=== PATIENT | female | born 1950 | race Caucasian/White ===

== ENCOUNTER 2017-08-01 13:46 | Inpatient (IN) ==
[2017-08-01] MEDS ORDERED: IOPAMIDOL 100 ML BOTTLE IV ONE (13:47)
[2017-08-01] MEDS ORDERED: HYDROmorphone 2 MG/ML SYRINGE IV PRN (14:14)
[2017-08-01] MEDS ORDERED: ONDANSETRON 4 MG/2 ML VIAL IV ONE (14:24)
--- NOTE | 2017-08-01 14:27 | Emergency Department Note ---
SOB HPI - General Chief Complaint: Shortness of Breath/Dyspnea Stated Complaint: Shortness of breath Time Seen by Provider: 08/01/17 13:52 Source: patient, EMS Mode of arrival: EMS Limitations: no limitations - History of Present Illness 66 year old female presents with increased shortness of breath and increased pain under the right ribs. She is brought in by EMS. She has been here 3 times in 3 days. She had a fall 2 days ago. She has COPD and has had increased SOB and more hypoxia. She is on 3 liters at home and was 85% on 3 liters. Pain is not controlled at home. She cannot sleep because of the pain. She denies fever or chills. No nausea or vomiting. She states she has been taking her tylenol #3 at home and they help for a few hours. - Related Data Home Medications Medication Instructions Recorded Confirmed Furosemide [Lasix] 1 tab PO DAILY 06/06/15 07/30/17 Ipratropium/Albuterol [Duoneb] 3 ml NEB Q6H 06/06/15 07/30/17 PARoxetine HCL [Paxil] 40 mg PO DAILY 06/06/15 07/30/17 Pantoprazole [Protonix] 40 mg PO QAMAC 06/06/15 07/30/17 traZODone HCL [Desyrel] 50 mg PO HS 06/06/15 07/30/17 Mometasone/Formoterol [Dulera 200 2 puff IH BID 06/07/15 07/30/17 Mcg/5 Mcg Inhaler] albuterol sulfate HFA 90 1 puff INHALATION ONCE PRN 08/04/15 07/30/17 mcg/actuation aerosol inhaler cyanocobalamin (vit B-12) 1,000 1,000 mcg PO QDAY 07/03/16 07/30/17 mcg tablet iron bis glycinate ju 28 mg 1 cap PO .QD 07/03/16 07/30/17 iron-vit C 60 mg-FA 400 mcg-B12 8mcg cap loratadine 10 mg tablet 10 mg PO QDAY 07/03/16 07/30/17 clonazepam 0.5 mg tablet 0.5 mg PO QDAY tab 07/08/17 07/30/17 diphenhydramine 25 1 tab PO QHS 07/08/17 07/30/17 mg-acetaminophen 500 mg tablet insulin glargine 300 unit/mL (1.5 15 unit SUB-Q QDAY ml 07/08/17 07/30/17 mL) subcutaneous pen docusate sodium 100 mg capsule 100 mg PO BID 07/15/17 07/30/17 traMADol [Ultram] 50 mg PO DAILY 07/30/17 07/30/17 Previous Rx's Medication Instructions Recorded amlodipine 5 mg tablet 5 mg PO QDAY #30 tab 10/21/16 Clindamycin HCl [Cleocin] 300 mg PO QID #40 capsule 07/30/17 Acetaminophen W/Codeine #3 1 tab PO Q4-6HP PRN #15 tablet 07/31/17 [Tylenol #3] Methocarbamol [Robaxin] 750 mg PO TIDP PRN #20 tablet 07/31/17 Allergies Allergy/AdvReac Type Severity Reaction Status Date / Time hydrocodone Allergy Severe Swelling Verified 08/01/17 13:55 Amoxicillin AdvReac Mild Gastrointestinal Verified 08/01/17 13:55 Upset meperidine [From Demerol] AdvReac Mild Vomiting Verified 08/01/17 13:55 doxycycline AdvReac bloating Verified 08/01/17 13:55 Review of Systems All systems ED: reviewed and negative except as stated. 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 Absent: conjunctival injection - Neck Neck exam: Present: normal inspection, full ROM. Absent: tenderness, lymphadenopathy - Chest Chest inspection: Present: symmetric chest wall rise, tenderness (right anterior ribs), other (tachypnic) - Respiratory Respiratory exam: Present: other (decreased in all wu) - Cardiovascular Cardiovascular exam: Present: tachycardia, normal heart sounds - Abdominal Exam Abdominal exam: Present: soft, normal bowel sounds. Absent: tenderness - Extremities Exam Extremities exam: Present: normal inspection, full ROM - Neurological Exam Neurological exam: Present: alert, oriented X3 - Psychiatric Psychiatric exam: Present: normal affect, normal mood - Skin Skin exam: Present: warm, dry, intact Course Course Narrative: She felt better laying flat on her back.. She will be admitted with Dr. Peña Vital Signs Temperature 98.5 F 08/01/17 13:47 Pulse Rate 96 H 08/01/17 13:47 Respiratory Rate 30 H 08/01/17 13:47 Blood Pressure 154/100 08/01/17 13:47 Pulse Oximetry (%) 88 L 08/01/17 13:47 Temperature 98.5 F 08/01/17 13:47 Pulse Rate 80 08/01/17 17:04 Respiratory Rate 17 08/01/17 17:04 Blood Pressure 140/61 08/01/17 17:04 Pulse Oximetry (%) 95 08/01/17 17:04 Shortness of Breath/Dyspnea - Lab Data Lab results reviewed: Yes I reviewed the patient's lab results. Result diagrams: 08/01/17 14:28 08/01/17 14:28 Lab Results 08/01/17 08/01/17 08/01/17 Range/Units 14:28 14:28 14:28 WBC 9.2 (4.5-11.0) K/mcL RBC 3.69 L (4.00-5.20) M/mcL Hgb 11.1 L (12.0-15.0) g/dL Hct 34.6 L (36.0-48.0) % POC Hct 37.0 (36.0-48.0) % MCV 93.8 (80.0-100.0) fL MCH 30.0 (26.0-34.0) pg MCHC 32.0 (31.0-36.0) g/dL RDW 14.1 (11.5-14.5) % Plt Count 190 (140-440) K/mcL MPV 10.7 H (7.4-10.4) fL Total Counted 100 Seg Neutrophils % 81 H (38-78) % Band Neutrophils % Not Reportable Lymphocytes % 7 L (15-49) % Monocytes % (Manual) 9 (1-12) % Eosinophils % (Manual) 3 (0-7) % Platelet Estimate Normal (NORMAL) RBC Morphology Normal (NORMAL) VBG Lactic Acid 0.9 (0.5-2.2) mmol/L POC Sodium 140 (133-145) mmol/L Sodium 143 (133-145) mmol/L POC Potassium 4.6 (3.3-5.1) mmol/L Potassium 4.8 (3.3-5.1) mmol/L POC Chloride 95 L (96-108) mmol/L Chloride 97 (96-108) mmol/L Carbon Dioxide 38 H (22-30) mmol/L POC Total CO2 41 H* (22-30) mmol/L Anion Gap 8.0 (8-16) POC BUN 24 H (8-23) mg/dl BUN 22 (8-23) mg/dl Creatinine 1.1 (0.6-1.1) mg/dl POC Creatinine 1.2 H (0.6-1.1) mg/dl GFR Calculation 52 Glucose 187 H (70-105) mg/dL POC Glucose 185 H (70-105) mg/dL Calcium 9.0 (8.6-10.4) mg/dl POC WB Ioniz Calcium 1.13 L (1.16-1.32) mmol/L Total Bilirubin 0.2 (0.0-1.0) mg/dL AST 15 (0-37) U/l ALT 15 (0-40) U/l Alkaline Phosphatase 134 H (39-117) U/L NT-Pro-B Natriuret Pep (0-125) pg/ml Total Protein 7.4 (5.9-8.4) gm/dL Albumin 4.0 (3.2-5.2) gm/dL Globulin 3.4 (2.2-3.7) gm/dL Albumin/Globulin Ratio 1.2 (1.0-2.3) 08/01/17 Range/Units 14:28 WBC (4.5-11.0) K/mcL RBC (4.00-5.20) M/mcL Hgb (12.0-15.0) g/dL Hct (36.0-48.0) % POC Hct (36.0-48.0) % MCV (80.0-100.0) fL MCH (26.0-34.0) pg MCHC (31.0-36.0) g/dL RDW (11.5-14.5) % Plt Count (140-440) K/mcL MPV (7.4-10.4) fL Total Counted Seg Neutrophils % (38-78) % Band Neutrophils % Lymphocytes % (15-49) % Monocytes % (Manual) (1-12) % Eosinophils % (Manual) (0-7) % Platelet Estimate (NORMAL) RBC Morphology (NORMAL) VBG Lactic Acid (0.5-2.2) mmol/L POC Sodium (133-145) mmol/L Sodium (133-145) mmol/L POC Potassium (3.3-5.1) mmol/L Potassium (3.3-5.1) mmol/L POC Chloride (96-108) mmol/L Chloride (96-108) mmol/L Carbon Dioxide (22-30) mmol/L POC Total CO2 (22-30) mmol/L Anion Gap (8-16) POC BUN (8-23) mg/dl BUN (8-23) mg/dl Creatinine (0.6-1.1) mg/dl POC Creatinine (0.6-1.1) mg/dl GFR Calculation Glucose (70-105) mg/dL POC Glucose (70-105) mg/dL Calcium (8.6-10.4) mg/dl POC WB Ioniz Calcium (1.16-1.32) mmol/L Total Bilirubin (0.0-1.0) mg/dL AST (0-37) U/l ALT (0-40) U/l Alkaline Phosphatase (39-117) U/L NT-Pro-B Natriuret Pep 250.9 H (0-125) pg/ml Total Protein (5.9-8.4) gm/dL Albumin (3.2-5.2) gm/dL Globulin (2.2-3.7) gm/dL Albumin/Globulin Ratio (1.0-2.3) - Radiology Data Radiology results reviewed: Yes I reviewed the patient's radiology results. 1. No evidence of pulmonary embolus 2. Moderate centrilobular emphysema with segmental and subsegmental bronchiectasis in both lower lobes and cicitration atelectasis in the lingula - all stable. 3. Patchy superimposed infiltrate throughout the right lower lobe - suspicious for early pneumonia 4. 21 mm low-attenuation lesion in the pancreatic tail not seen on remote CT from 2013. Suggest abdomen CT - pancreatic protocol and correlation with CA 19-9 - a serologic marker for pancreatic cancer Disposition Pt seen by COMMUNITY OUTREACH COORDINATOR/PA only: No Clinical Impression: Acute exacerbation of chronic obstructive airways disease, Community acquired pneumonia Disposition: Xfer As Inpt ([facility]) Condition: Fair Referrals: Yola Paul MD [Primary Care Provider] -
[2017-08-01 14:57] LABS: Mean Cell Volume 93.8 fL (80.0-100.0); Platelet Count 190 K/mcL (140-440); RBC 3.69 M/mcL (4.00-5.20); Red Cell Distribution Width 14.1 % (11.5-14.5)
[2017-08-01 15:17] LABS: Eosinophils % (Manual) 3 % (0-7); Lymphocytes % 7 % (15-49); Monocytes % (Manual) 9 % (1-12); Platelet Estimate NORMAL (NORMAL); RBC Morphology NORMAL (NORMAL); Segmented Neutrophils % 81 % (38-78)
[2017-08-01 15:19] LABS: ALT/SGPT 15 U/l (0-40); Albumin/Globulin Ratio 1.2 (1.0-2.3); Alkaline Phosphatase 134 U/L (39-117); Blood Urea Nitrogen 22 mg/dl (8-23)
--- NOTE | 2017-08-01 16:53 | Cat Scan Report ---
CLINICAL INFORMATION: Shortness of breath. COPD. Also fall three days prior COMPARISON: Chest CT without contrast 06/17/2013 TECHNIQUE: Axial images obtained through the chest. intravenous contrast administration was administered, and scanning was performed during pulmonary arterial phase. Sagittally and coronally reformatted images were obtained. MIP reformatted images. FINDINGS: Mediastinal windows show the pulmonary arteries are well opacified without evidence of emboli. Thoracic aorta is also normal in contour and caliber. There is no adenopathy in the mediastinal, hilar or axillary regions. Esophagus is grossly normal. Thyroid is normal. The heart is normal in size: There is lipomatous infiltration of the interatrial septum which is unchanged. Pulmonary parenchymal windows show moderate centrilobular emphysema changes featuring chronic bronchitis, elevated lung volumes and scattered bullae in the upper lobes. This shows slight progression. There is also tubular bronchiectasis in the medial posterior and lateral basilar segments of both lower lobes - more prominent on the right. Cicitration atelectasis of the lingula seen - as before. Mild wispy fibrotic change in the posterior segment left upper lobe is similar to prior study. Small benign subpulmonic lymph nodes adjacent to the right major fissure (image 67) and the minor fissure image 62. They could not be mistaken for pulmonary nodules. There may be a superimposed patchy infiltrate in the right lower lobe. Mild compression fractures the mid thoracic spine are chronic. Images through the abdomen show a 21 mm low-attenuation lesion in the pancreatic tail is not seen on abdominal CT from 04/28/2014. IMPRESSION: 1. No evidence of pulmonary embolus 2. Moderate centrilobular emphysema with segmental and subsegmental bronchiectasis in both lower lobes and cicitration atelectasis in the lingula - all stable. 3. Patchy superimposed infiltrate throughout the right lower lobe - suspicious for early pneumonia 4. 21 mm low-attenuation lesion in the pancreatic tail not seen on remote CT from 2014. Suggest abdomen CT - pancreatic protocol and correlation with CA 19-9 - a serologic marker for pancreatic cancer Interpreted and Authenticated by: Deepak Sherwood 08/01/17
[2017-08-01] MEDS ORDERED: oxyCODONE/APAP 5/325MG TABLET PO ONE (17:06)
[2017-08-01] MEDS ORDERED: AZITHROMYCIN 500 MG in DEXTROSE 5% IN WATER 250 ML IV ONE (17:07)
[2017-08-01] MEDS ORDERED: cefTRIAXone 1 GM in DEXTROSE 5% IN WATER 50 ML IV ONE (17:07)
[2017-08-01] MEDS ORDERED: ONDANSETRON 4 MG/2 ML VIAL IV PRN ×2 (17:49→19:01)
[2017-08-01] MEDS ORDERED: SENNOSIDES 1 TABLET PO PRN ×2 (17:49→19:01)
[2017-08-01] MEDS ORDERED: AZITHROMYCIN 500 MG in DEXTROSE 5% IN WATER 250 ML IV SCH (18:00)
--- NOTE | 2017-08-01 18:09 | Internal Med History&Physical ---
Medical - H&P: HPI Patient information: Note initiated : 08/01/17 at 6:06 pm Service Date, if different from initiated Date: [] Patient: Trevor Garcia a 66 y/o F admitted on for Shortness of breath. Chief Complaint: SOB History of present illness: Ms. Garcia is a 66 year old F With history of chronic hypoxic hypercapnic respiratory failure secondary to advanced COPD and RENE chronically on 3 L of oxygen with Trilogy ventilator use at night who was her usual state of health until 3 days prior to admission when she was seen in the ER for productive cough and dental caries and was started on clindamycin for her dental caries.She was seen later that day in the ER after sustaining a mechanical fall going up the stairs in her daughter's home and landing on her right side, hitting the back of her head her right shoulder, ribs and hip. X-rays were negative for fracture and CT head done the next day was negative for bleed.On day 3, she presented again to the ER with increased pain. She was discharged on Robaxin, Tylenol with codeine, ibuprofen and incentive spirometer. She states th this regimen helped somewhat, but did not last for long. On day one of her fall, she was taking Tylenol every 2 hours with no relief. Today she presents with shortness of breath. She is unable to cough up phlegm has a hurts too much to cough. She received 2 doses of Dilaudid and tolerated the first dose, but developed somnolence with the second dose. Prior to the second dose, ABG was done which showed a pH of 7.28 and PCO2 of 97. The ED provider notes that she had improved breathing while lying flat on her back. CT of the chest was done which was negative for pulmonary embolism but did show right lower lobe pneumonia. Her significant other is recently recovering from bronchitis. She has not gotten her influenza immunization and does not think she is up-to-date with her pneumonia vaccine. CT scan also shows a new pancreatic lesion. Review of systems: Please see the HPI. Otherwise a comprehensive review systems is negative or noncontributory to chief complaint. Medical - H&P: PMH Medical history: 1. Chronic hypoxic, hypercapnic respiratory failure secondary to advanced COPD , RENE and probable OHS. She is on 3 L chronically and actually she ventilator at night. She is followed by Dr. Niño. 2. Insulin-dependent diabetes mellitus type 2 3. GERD 4. Anemia with a history of iron and B12 deficiency 5. 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 Hypertension 7. Anxiety 8. Hyperlipidemia 9. Osteopenia Surgical history: cholecystectomy Pertinent family history: Significant for emphysema, diabetes, osteoporosis, lung cancer Social history: She is to [place]. She says smoke but quit in 1998. Her primary care physician is Dr. Paul. She uses a wheelchair if she is going to travel very far. She is a DNR/DNI. Tim is her surrogate medical decision maker. Medical - H&P: Meds Home Medications Medication Instructions Recorded Confirmed Type Furosemide [Lasix] 1 tab PO DAILY 06/06/15 07/30/17 History Ipratropium/Albuterol [Duoneb] 3 ml NEB Q6H 06/06/15 07/30/17 History PARoxetine HCL [Paxil] 40 mg PO DAILY 06/06/15 07/30/17 History Pantoprazole [Protonix] 40 mg PO QAMAC 06/06/15 07/30/17 History traZODone HCL [Desyrel] 50 mg PO HS 06/06/15 07/30/17 History Mometasone/Formoterol [Dulera 200 2 puff IH BID 06/07/15 07/30/17 History Mcg/5 Mcg Inhaler] albuterol sulfate HFA 90 1 puff INHALATION ONCE PRN 08/04/15 07/30/17 History mcg/actuation aerosol inhaler cyanocobalamin (vit B-12) 1,000 1,000 mcg PO QDAY 07/03/16 07/30/17 History mcg tablet iron bis glycinate ju 28 mg 1 cap PO .QD 07/03/16 07/30/17 History iron-vit C 60 mg-FA 400 mcg-B12 8mcg cap loratadine 10 mg tablet 10 mg PO QDAY 07/03/16 07/30/17 History amlodipine 5 mg tablet 5 mg PO QDAY #30 tab 10/21/16 07/30/17 Rx clonazepam 0.5 mg tablet 0.5 mg PO QDAY tab 07/08/17 07/30/17 History diphenhydramine 25 1 tab PO QHS 07/08/17 07/30/17 History mg-acetaminophen 500 mg tablet insulin glargine 300 unit/mL (1.5 15 unit SUB-Q QDAY ml 07/08/17 07/30/17 History mL) subcutaneous pen docusate sodium 100 mg capsule 100 mg PO BID 07/15/17 07/30/17 History Clindamycin HCl [Cleocin] 300 mg PO QID #40 capsule 07/30/17 Rx traMADol [Ultram] 50 mg PO DAILY 07/30/17 07/30/17 History Acetaminophen W/Codeine #3 1 tab PO Q4-6HP PRN #15 tablet 07/31/17 Rx [Tylenol #3] Methocarbamol [Robaxin] 750 mg PO TIDP PRN #20 tablet 07/31/17 Rx Allergies Allergy/AdvReac Type Severity Reaction Status Date / Time hydrocodone Allergy Severe Swelling Verified 08/01/17 13:55 Amoxicillin AdvReac Mild Gastrointestinal Verified 08/01/17 13:55 Upset meperidine [From Demerol] AdvReac Mild Vomiting Verified 08/01/17 13:55 doxycycline AdvReac bloating Verified 08/01/17 13:55 Medical - H&P: Exam - Constitutional Vitals: Temp Pulse Resp BP Pulse Ox 98.5 F 80 17 140/61 95 08/01/17 13:47 08/01/17 17:04 08/01/17 17:04 08/01/17 17:04 08/01/17 17:04 General: This is a pleasant, obese woman who falls asleep in the middle of conversation despite the fact 2 without mass are attempting to draw blood. Her is at the bedside. HEENT: Normocephalic. PERRLA. EOMI. Mucous members are moist. Neck: Is supple CV: Regular rate and rhythm. Heart sounds distant Respiratory: Unable to speak in complete sentences, but no significant accessory muscle use. Wheezes bilaterally. Sounding cough. Abdomen: Obese, nondistended, nontender. Extremities: No clubbing, cyanosis or edema. Neuro: Somnolent, oriented 3. She is able to move all 4 extremities to command. Skin: Warm and dry, no rash. Medical - H&P: Reslt - Labs CBC & Chem 7: 08/01/17 14:28 08/01/17 14:28 Labs: Short CBC 08/01/17 Range/Units 14:28 WBC 9.2 (4.5-11.0) K/mcL Hgb 11.1 L (12.0-15.0) g/dL Hct 34.6 L (36.0-48.0) % Plt Count 190 (140-440) K/mcL BMP 08/01/17 14:28 Sodium 143 Potassium 4.8 Chloride 97 Carbon Dioxide 38 H BUN 22 Creatinine 1.1 Glucose 187 H Calcium 9.0 Liver Function 08/01/17 Range/Units 14:28 Total Bilirubin 0.2 (0.0-1.0) mg/dL AST 15 (0-37) U/l ALT 15 (0-40) U/l Alkaline Phosphatase 134 H (39-117) U/L Albumin 4.0 (3.2-5.2) gm/dL - EKG Data -: EKG Interpreted by Myself EKG shows normal: sinus rhythm Rate: normal - EKG Data Interpretation: normal EKG - Impressions CTA of the chest is negative for PE and shows a right lower lobe infiltrate, likely pneumonia. It also shows a 21 mm lesion in the pancreatic tail. Head CT from 07/31 is unremarkable. Rib x-ray/chest x-ray 07/30 shows no evidence of rib fracture with some borderline volume overload. Pelvic x-ray from 07/30 is negative for fracture Medical - H&P: A/P - Narrative A/P Narrative: #Acute on chronic hypoxic hypercapnic respiratory failure, multifactorial -Right lower lobe pneumonia with COPD exacerbation -Atelectasis -Possible pulmonary edema w elevated BNP -Underlying OHS/RENE--on home ventilator QHS and 3L O2 at home -with possible platypnea--likely r/t COPD and chest wall pain. Consider echo if not improving Plan: 1. Admit to ICU. Increase home Trilogy use to continuous until somnolence wears off. 2. CTX and azithromycin. F/U BC 3. Prednisone 60 QD, Cont Q6H duonebs. Resume home Dulera. 4. IS 5. Cont home Lasix. No IVF. 6. Hold home clonazepam. #Recent fall -no e/o fx on any imaging. All soft tissue pain -pain management challenging d/t resp status Plan: 1. PT/OT 2. Scheduled tylenol. Avoid NSAIDs w known CKD 3. low dose oxycodone and lidocaine patches #Pancreatic lesion -check CA 19-9. CT abd/pelvis pancreatic protocol when respiratory status more stable. #Insulin-dependent diabetes mellitus type 2 -Home regimen: Toujeo 15 units HS -Will likely have steroid hyperglycemia Plan: 1. Lantus 20 units HS, SSI tier 2. I'm unable to order carb coverage at this point but would like her on 1:10 to start. 2. ADA diet #Anemia with known ISAAC and B12 deficiency -endoscopic evaluation in the past Plan: 1. Monitor H/H. No need for transfusion at this point. 2. Cont home Fe and B12. #HTN -cont home amlodipine w hold parameters #Morbid obesity #DVT ppx: heparin TID #Code: DNR/DNI. Her is her surrogate MDM.
[2017-08-01 18:44] LABS: Appearance,Urine CLEAR; Bacteria,Urine 0 /hpf (0); Bilirubin,Urine NEG (NEG); Color,Urine STRAW; Glucose,Urine (UA) NEGATIVE (NEG); Leukocyte Esterase,Urine NEG /uL (NEG); Mucus,Urine FEW /hpf (0); Nitrate,Urine NEG (NEG); Protein,Urine NEG (NEG); Urine Blood NEG mg/dL (<0.03); Urine RBC 0 /hpf (0-1); Urine Squamous Epithelial Cell < 1 /hpf (0-4); Urine WBC 0 /hpf (0-4); Urobilinogen,Urine NEG (NEG)
[2017-08-01] MEDS ORDERED: predniSONE 20 MG TABLET PO SCH (18:52)
[2017-08-01] MEDS ORDERED: oxyCODONE HCL 5 MG TABLET PO PRN (19:01)
[2017-08-01] MEDS ORDERED: DEXTROSE 31 GM ORAL.SUSP PO PRN (19:01)
[2017-08-01] MEDS ORDERED: DEXTROSE 50% 50 ML VIAL IV PRN (19:01)
[2017-08-01] MEDS ORDERED: ACETAMINOPHEN 325 MG TABLET PO SCH (20:00)
[2017-08-01] MEDS: ACETAMINOPHEN 325 MG TABLET PO SCH ×2 (20:18→23:31)
[2017-08-01] MEDS ORDERED: FUROSEMIDE 20 MG/2 ML VIAL IV ONE ×2 (20:53→21:22)
[2017-08-01] MEDS ORDERED: methylPREDNISolone SOD SUCC 40 MG/ML VIAL IV ONE (20:53)
[2017-08-01] MEDS ORDERED: LIDOCAINE PATCH TOPICAL SCH (21:00)
[2017-08-01] MEDS: predniSONE 20 MG TABLET PO SCH (21:07)
[2017-08-01] MEDS ORDERED: IPRATROPIUM/ALBUTEROL 3 ML AMPUL.NEB NEB ONE (21:10)
[2017-08-01] MEDS: HEPARIN 5,000 UNIT/ML VIAL SQ SCH (21:20)
[2017-08-01] MEDS: INSULIN GLARGINE, HUMAN 1 UNIT/0.01 ML SQ SCH (21:21)
[2017-08-01] MEDS: INSULIN LISPRO 1 UNIT/0.01 ML UNIT SQ SCH (21:22)
[2017-08-01] MEDS: 0.9 % SODIUM CHLORIDE 10 ML SYRINGE IV SCH (21:23)
[2017-08-01] MEDS: ACETYLCYSTEINE 800 MG/4 ML VIAL NEB SCH (21:50)
[2017-08-01] MEDS ORDERED: HEPARIN 5,000 UNIT/ML VIAL SQ SCH (22:00)
[2017-08-01] MEDS ORDERED: 0.9 % SODIUM CHLORIDE 10 ML SYRINGE IV SCH (22:00)
[2017-08-02] MEDS: ACETAMINOPHEN 325 MG TABLET PO SCH ×6 (04:49→23:34)
[2017-08-02 05:20] LABS: Mean Cell Volume 93.7 fL (80.0-100.0); Mean Corpuscular HGB Conc 32.1 g/dL (31.0-36.0); Mean Corpuscular Hemoglobin 30.1 pg (26.0-34.0); Platelet Count 190 K/mcL (140-440); Red Cell Distribution Width 13.8 % (11.5-14.5)
[2017-08-02 05:35] LABS: ALT/SGPT 30 U/l (0-40); Albumin/Globulin Ratio 1.1 (1.0-2.3); Alkaline Phosphatase 153 U/L (39-117); Blood Urea Nitrogen 19 mg/dl (8-23)
[2017-08-02] MEDS: HEPARIN 5,000 UNIT/ML VIAL SQ SCH ×3 (05:59→22:22)
[2017-08-02] MEDS: 0.9 % SODIUM CHLORIDE 10 ML SYRINGE IV SCH ×3 (05:59→22:31)
[2017-08-02 06:47] LABS: Band Neutrophils % 4 % (0-10); Basophilic Stippling FEW (NONE SEEN); Lymphocytes % 2 % (15-49); Monocytes % (Manual) 1 % (1-12); Platelet Estimate NORMAL (NORMAL); RBC Morphology ABNORM (NORMAL); Segmented Neutrophils % 93 % (38-78)
[2017-08-02] MEDS: predniSONE 20 MG TABLET PO SCH (08:08)
[2017-08-02] MEDS: cefTRIAXone 1 GM in DEXTROSE 5% IN WATER 50 ML IV SCH (08:09)
[2017-08-02] MEDS: ACETYLCYSTEINE 800 MG/4 ML VIAL NEB SCH ×2 (08:10→19:11)
[2017-08-02] MEDS: IPRATROPIUM/ALBUTEROL 3 ML AMPUL.NEB NEB SCH ×3 (08:10→19:11)
[2017-08-02] MEDS: INSULIN LISPRO 1 UNIT/0.01 ML UNIT SQ SCH ×5 (08:22→22:21)
[2017-08-02] MEDS ORDERED: IPRATROPIUM/ALBUTEROL 3 ML AMPUL.NEB NEB SCH (09:30)
[2017-08-02] MEDS: AZITHROMYCIN 500 MG in DEXTROSE 5% IN WATER 250 ML IV SCH (10:48)
[2017-08-02] MEDS: PARoxetine 20 MG TABLET PO SCH (10:55)
[2017-08-02] MEDS: FUROSEMIDE 20 MG TABLET PO SCH (10:55)
[2017-08-02] MEDS: amLODIPine 5 MG TABLET PO SCH (10:56)
[2017-08-02] MEDS: CYANOCOBALAMIN (VITAMIN B-12) 500 MCG TABLET PO SCH (10:56)
[2017-08-02] MEDS: LORATADINE 10 MG TABLET PO SCH (11:00)
[2017-08-02] MEDS: Mometasone/Formoterol [Dulera] 200 Mcg/5 Mcg Inhaler INH SCH ×2 (11:02→22:22)
[2017-08-02] MEDS ORDERED: ACETAMINOPHEN W/CODEINE #3 1 TABLET PO PRN (11:48)
--- NOTE | 2017-08-02 11:51 | Internal Med Progress Note ---
Medical - PN: Subj Patient information: Note initiated : 08/02/17 at 11:46 am Service Date, if different from initiated Date: [] Patient: Trevor Garcia 66 y/o F admitted on 08/01/17 for Shortness of breath. Chief Complaint: [] Interval history: Admit August 01: This is a 66-year-old female with a history of chronic hypoxic hypercapnic respiratory failure secondary to advanced COPD and RENE chronically on 3 L of oxygen with Trilogy ventilator use at night who is admitted with acute on chronic hypoxic hypercapnic respiratory failure secondary to right lower lobe pneumonia with COPD exacerbation, atelectasis secondary to rib bruising after mechanical fall 3 days prior to admission and opiates given for pain control. She has been started on ceftriaxone and azithromycin, continued her home ventilator use, and started on steroids with nebs and Mucomyst. CT scan incidentally found a pancreatic lesion. August 02: Her breathing is better than last night and she is more awake although she continues to desaturate to the 60-70s with any getting out of bed. Her breathing has historically better while laying flat due to a large abdominal hernia. This continues to be the case. She is saturating well on 3- 5 L. The lidocaine patches were not helpful for her pain and she would like to try Tylenol 3 again. We discussed splinting techniques for coughing. Discussed her pancreatic lesion seen on CT and that this cannot be done until her stress test improves. Her blood sugars continue to run high on the steroids. She has noted they have been high since her dental caries started. Pertinent ROS: No fevers or nausea - Constitutional Vitals: Vital Signs Temp Pulse Resp BP Pulse Ox 100.0 F H 76 20 151/57 92 08/02/17 11:00 08/02/17 11:00 08/02/17 11:00 08/02/17 11:00 08/02/17 11:00 Period Temp Pulse Resp BP Sys/Bailey Pulse Ox Last 24 Hr 97.5 F-100.0 F 67-102 14-30 88-167/48-100 69-99 Intake and Output 08/01/17 08/02/17 08/02/17 21:59 05:59 13:59 Intake Total 300 / 300 Output Total 102 / 102 433 / 433 1 / Balance 198 / 198 -433 / -433 -1 / -1 Weight 197 lb 8 oz General: Obese, unable to speak in complete sentences. Alert. No acute distress CV: Regular rate and rhythm. Heart sounds distant. Respiratory: Unable to speak in complete sentences. Pursed lip breathing. Wheezes bilaterally with poor air movement. Abdomen: Soft, nondistended, nontender. There is a large bruise over her right flank. Extremities: No clubbing, cyanosis or edema. Neuro: Alert and oriented 3. No focal motor or sensory deficits Intake & Output: Intake & Output 08/01/17 08/02/17 08/02/17 21:59 05:59 13:59 Intake Total 300 / 300 Output Total 102 / 102 433 / 433 Balance 198 / 198 -433 / -433 - Weight 197 lb 8 oz Intake: IV 300 / 300 Output: Void Amount 100 / 100 425 / 425 # of times incontinent of urine 2 / Other: # Voids 1 0 0 Medical - PN: Obj Da - Labs CBC & Chem 7: 08/02/17 04:00 08/02/17 04:00 Labs: Abnormal Lab Results 08/02/17 08/02/17 08/01/17 04:00 04:00 14:28 RBC 3.80 L Hgb 11.4 L Hct 35.6 L MPV 11.2 H Seg Neutrophils % 93 H Lymphocytes % 2 L RBC Morphology Abnorm A Basophilic Stippling Few A POC Chloride Chloride 91 L Carbon Dioxide 40 H POC Total CO2 Anion Gap 7.0 L POC BUN Creatinine 1.3 H POC Creatinine Glucose 272 H POC Glucose POC WB Ioniz Calcium Alkaline Phosphatase 153 H NT-Pro-B Natriuret Pep 250.9 H 08/01/17 08/01/17 14:28 14:28 RBC 3.69 L Hgb 11.1 L Hct 34.6 L MPV 10.7 H Seg Neutrophils % 81 H Lymphocytes % 7 L RBC Morphology Basophilic Stippling POC Chloride 95 L Chloride Carbon Dioxide 38 H POC Total CO2 41 H* Anion Gap POC BUN 24 H Creatinine POC Creatinine 1.2 H Glucose 187 H POC Glucose 185 H POC WB Ioniz Calcium 1.13 L Alkaline Phosphatase 134 H NT-Pro-B Natriuret Pep Meds: Medications Acetaminophen (Tylenol) 650 mg PO Q4 [facility] Last Admin: 08/02/17 08:07 Dose: 650 mg Acetylcysteine (Mucomyst) 600 mg NEB BID [facility] Last Admin: 08/02/17 08:10 Dose: 600 mg Albuterol/Ipratropium (Duoneb) 3 ml NEB Q6HRT [facility] Last Admin: 08/02/17 08:10 Dose: 3 ml Amlodipine Besylate (Norvasc) 5 mg PO QDAY [facility] Last Admin: 08/02/17 10:56 Dose: 5 mg Cyanocobalamin (Vitamin B-12) 1,000 mcg PO DAILY [facility] Last Admin: 08/02/17 10:56 Dose: 1,000 mcg Dextrose (Dextrose 50%) 0 ml IV UD PRN PRN Reason: Hypoglycemia Diagnostic Test (Pha) (Accu-Chek) 1 each FS ACHS [facility] Last Admin: 08/02/17 08:16 Dose: 1 each Furosemide (Lasix) 20 mg PO DAILY [facility] Last Admin: 08/02/17 10:55 Dose: 20 mg Glucose (Insta-Glucose) 15 gm PO PRN PRN PRN Reason: Hypoglycemia Heparin Sodium (Porcine) (Heparin) 5,000 unit SQ Q8 [facility] Last Admin: 08/02/17 05:59 Dose: 5,000 unit Azithromycin 500 mg/ Dextrose 250 mls @ 250 mls/hr IV Q24H [facility] Stop: 08/04/17 10:59 Last Admin: 08/02/17 10:48 Dose: 250 mls/hr Ceftriaxone Sodium 1 gm/ (Dextrose) 50 mls @ 100 mls/hr IV Q24H [facility] Stop: 08/06/17 08:59 Last Admin: 08/02/17 08:09 Dose: 100 mls/hr Insulin Glargine (Lantus) 20 unit SQ HS [facility] Last Admin: 08/01/17 21:21 Dose: 20 unit Insulin Human Lispro (Humalog) 0 unit SQ [facility] PRN Reason: Protocol Last Admin: 08/02/17 08:22 Dose: 6 unit Lidocaine (Lidoderm) 2 patch [facility] Last Admin: 08/01/17 21:22 Dose: 2 patch Loratadine (Claritin) 10 mg PO QDAY [facility] Last Admin: 08/02/17 11:00 Dose: 10 mg Ondansetron HCl (Zofran) 4 mg IV Q4-6HP PRN PRN Reason: Nausea And Vomiting Last Admin: 08/02/17 11:00 Dose: 4 mg Oxycodone HCl (Roxicodone) 2.5 mg PO Q6HP PRN PRN Reason: Pain Last Admin: 08/01/17 23:30 Dose: 2.5 mg Pantoprazole Sodium (Protonix) 40 mg PO [facility] Paroxetine HCl (Paxil) 40 mg PO DAILY [facility] Last Admin: 08/02/17 10:55 Dose: 40 mg Iron Bis Glycinate (Chelate) 1 dose PO DAILY [facility] Mometasone/Formoterol [Dulera] 200 Mcg/5 Mcg Inhaler 2 dose INH BID [facility] Last Admin: 08/02/17 11:02 Dose: 2 dose Prednisone (Prednisone) [address] [facility] Last Admin: 08/02/17 08:08 Dose: 60 mg Senna (Senokot) 2 tab PO [facility] PRN PRN Reason: Constipation Sodium Chloride (Saline Flush) 10 ml IV Q8 [facility] Last Admin: 08/02/17 05:59 Dose: 10 ml Medical - PN: A/P - Time Spent With Patient Total time spent is greater than 50% in coordination of care (as documented) at patient's floor/unit and/or counseling patient: Greater than 35 minutes - Narrative A/P Narrative: #Acute on chronic hypoxic hypercapnic respiratory failure, multifactorial -Right lower lobe pneumonia with COPD exacerbation -Atelectasis -Possible pulmonary edema w elevated BNP -Underlying OHS/RENE--on home ventilator QHS and 3L O2 at home -with possible platypnea--likely r/t COPD and chest wall pain and abdominal hernia. Consider echo to evaluate for shunt if worsening Plan: 1. Cont home Trilogy use HS and PRN 2. CTX and azithromycin. F/U BC 3. Prednisone 60 QD, Cont Q6H duonebs. Cont home Dulera. 4. IS 5. Cont home Lasix; watch vol status closely as she looks a little dry by labs. No IVF. 6. Hold home clonazepam. #Recent fall -no e/o fx on any imaging. All soft tissue pain -pain management challenging d/t resp status Plan: 1. PT/OT 2. Scheduled tylenol. Avoid NSAIDs w known CKD 3. low dose oxycodone and Tylenol #3. Lidocaine patches ineffective. #Pancreatic lesion -CA 19-[address] abd/pelvis pancreatic protocol when respiratory status more stable. Pt and aware of plan and findings. #Insulin-dependent diabetes mellitus type 2 -Home regimen: Toujeo 15 units HS -Will likely have steroid hyperglycemia Plan: 1. Lantus 20 units HS, SSI tier 2. I'm unable to order carb coverage so will change to Humalog 4 TID plus the SSI. 2. ADA diet #Anemia with known ISAAC and B12 deficiency -endoscopic evaluation in the past Plan: 1. Monitor H/H. No need for transfusion at this point. 2. Cont home Fe and B12. #HTN -cont home amlodipine w hold parameters #Morbid obesity #DVT ppx: heparin TID #Code: DNR/DNI. Her is her surrogate MDM. Medical - PN: Qual - VTE Deep Vein Thrombosis/Pulmonary Embolism Present on Admission: No
[2017-08-02] MEDS ORDERED: cefTRIAXone 1 GM in DEXTROSE 5% IN WATER 50 ML IV SCH (18:00)
[2017-08-02] MEDS: INSULIN GLARGINE, HUMAN 1 UNIT/0.01 ML SQ SCH (22:22)
[2017-08-03] MEDS: IPRATROPIUM/ALBUTEROL 3 ML AMPUL.NEB NEB SCH ×4 (01:16→19:29)
[2017-08-03] MEDS: ACETAMINOPHEN 325 MG TABLET PO SCH ×5 (04:30→21:40)
[2017-08-03] MEDS: HEPARIN 5,000 UNIT/ML VIAL SQ SCH ×3 (06:24→22:02)
[2017-08-03] MEDS: 0.9 % SODIUM CHLORIDE 10 ML SYRINGE IV SCH ×3 (06:25→22:02)
[2017-08-03 06:27] LABS: Mean Cell Volume 94.1 fL (80.0-100.0); Mean Corpuscular HGB Conc 31.9 g/dL (31.0-36.0); Platelet Count 204 K/mcL (140-440); RBC 3.58 M/mcL (4.00-5.20); Red Cell Distribution Width 14.2 % (11.5-14.5)
[2017-08-03 06:51] LABS: ALT/SGPT 22 U/l (0-40); Albumin 3.7 gm/dL (3.2-5.2); Albumin/Globulin Ratio 1.1 (1.0-2.3); Alkaline Phosphatase 120 U/L (39-117); Blood Urea Nitrogen 27 mg/dl (8-23)
[2017-08-03 07:23] LABS: Band Neutrophils % 1 % (0-10); Lymphocytes % 16 % (15-49); Monocytes % (Manual) 7 % (1-12); Platelet Estimate NORMAL (NORMAL); RBC Morphology NORMAL (NORMAL); Segmented Neutrophils % 76 % (38-78)
[2017-08-03] MEDS: ACETYLCYSTEINE 800 MG/4 ML VIAL NEB SCH ×2 (07:44→19:29)
[2017-08-03] MEDS: INSULIN LISPRO 1 UNIT/0.01 ML UNIT SQ SCH ×8 (08:13→22:01)
[2017-08-03] MEDS: PARoxetine 20 MG TABLET PO SCH (09:16)
[2017-08-03] MEDS: LORATADINE 10 MG TABLET PO SCH (09:16)
[2017-08-03] MEDS: predniSONE 20 MG TABLET PO SCH (09:18)
[2017-08-03] MEDS: PANTOPRAZOLE 40 MG TABLET PO SCH (09:18)
[2017-08-03] MEDS: FUROSEMIDE 20 MG TABLET PO SCH (09:19)
[2017-08-03] MEDS: CYANOCOBALAMIN (VITAMIN B-12) 500 MCG TABLET PO SCH (09:19)
[2017-08-03] MEDS: cefTRIAXone 1 GM in DEXTROSE 5% IN WATER 50 ML IV SCH (09:20)
[2017-08-03] MEDS: amLODIPine 5 MG TABLET PO SCH (09:21)
[2017-08-03] MEDS: Mometasone/Formoterol [Dulera] 200 Mcg/5 Mcg Inhaler INH SCH ×2 (09:22→22:02)
[2017-08-03] MEDS: [UNRECOGNIZED DRUG - OTHER] PO SCH (09:22)
[2017-08-03] MEDS ORDERED: FLU VACC QS2017-18 36MOS UP/PF 60 MCG/0.5 ML SYRINGE IM ONE (10:00)
--- NOTE | 2017-08-03 10:16 | Internal Med Progress Note ---
Medical - PN: Subj Patient information: Note initiated : 08/03/17 at 10:14 am Service Date, if different from initiated Date: [] Patient: Trevor Garcia 66 y/o F admitted on 08/01/17 for Shortness of breath. Chief Complaint: [] Interval history: Admit August 01: This is a 66-year-old female with a history of chronic hypoxic hypercapnic respiratory failure secondary to advanced COPD and RENE chronically on 3 L of oxygen with Trilogy ventilator use at night who is admitted with acute on chronic hypoxic hypercapnic respiratory failure secondary to right lower lobe pneumonia with COPD exacerbation, atelectasis secondary to rib bruising after mechanical fall 3 days prior to admission and opiates given for pain control. She has been started on ceftriaxone and azithromycin, continued her home ventilator use, and started on steroids with nebs and Mucomyst. CT scan incidentally found a pancreatic lesion. August 02: Her breathing is better than last night and she is more awake although she continues to desaturate to the 60-70s with any getting out of bed. Her breathing has historically better while laying flat due to a large abdominal hernia. This continues to be the case. She is saturating well on 3- 5 L. The lidocaine patches were not helpful for her pain and she would like to try Tylenol 3 again. We discussed splinting techniques for coughing. Discussed her pancreatic lesion seen on CT and that this cannot be done until her stress test improves. Her blood sugars continue to run high on the steroids. She has noted they have been high since her dental caries started. August 03: Her was adjusting the bed last night and she got into position that "popped everything back into place". Her pain is much improved today although she has residual right chest wall pain. She is able to productively cough a little today. She is sitting up in chair without significant desaturation on 3 L. She still is unable to speak in complete sentences, but declines an increase in her steroids. Her blood sugars are still elevated and so I will increase her NovoLog to 6 units with meals in addition to sliding scale. Will plan for CT scan pancreas protocol tomorrow. Pertinent ROS: No fever or nausea - Constitutional Vitals: Vital Signs Temp Pulse Resp BP Pulse Ox 98.6 F 77 20 129/59 100 08/03/17 07:59 08/03/17 07:47 08/03/17 07:59 08/03/17 07:59 08/03/17 07:59 Period Temp Pulse Resp BP Sys/Bailey Pulse Ox Last 24 Hr 97.5 F-100.0 F 61-99 13-24 107-157/49-129 84-100 Intake and Output 08/02/17 08/03/17 08/03/17 21:59 05:59 13:59 Intake Total 565 / 565 50 / 50 220 / 220 Output Total 152 / 152 56 / 56 Balance 413 / 413 -6 / -6 219 / 219 Weight 192 lb 11.2 oz Intake & Output: Intake & Output 08/02/17 08/03/17 08/03/17 21:59 05:59 13:59 Intake Total 565 / 565 50 / 50 220 / 220 Output Total 152 / 152 56 / 56 Balance 413 / 413 -6 / -6 219 / 219 Weight 192 lb 11.2 oz Intake: IV 300 / 300 Zithromax 500 mg In Dextrose 5% 250 / 250 in Water 250 ml @ 250 mls/hr IV Q24H [facility] Rx#:[id number] Rocephin 1 gm In Dextrose 5% in 50 / 50 Water 50 ml @ 100 mls/hr IV Q24H [facility] Rx#:[id number] Oral 265 / 265 50 / 50 220 / 220 Output: Void Amount 150 / 150 50 / 50 # of times incontinent of urine 2 / 2 6 / Other: Meal Breakfast Percent of Meal Consumed 75% 100% Feeding Ability Independent # Voids 1 # Bowel Movements 0 General: Obese, unable to speak in complete sentences; sitting up in chair. Alert. No acute distress CV: Regular rate and rhythm. Heart sounds distant. Respiratory: Unable to speak in complete sentences. Pursed lip breathing. No wheeze, poor air movement. Abdomen: Soft, nondistended, nontender. There is a large bruise over her right flank. Extremities: No clubbing, cyanosis or edema. Neuro: Alert and oriented 3. No focal motor or sensory deficits Medical - PN: Obj Da - Labs CBC & Chem 7: 08/03/17 04:30 08/03/17 04:30 Labs: Abnormal Lab Results 08/03/17 08/03/17 08/02/17 04:30 04:30 04:00 RBC 3.58 L Hgb 10.8 L Hct 33.7 L MPV 11.3 H Seg Neutrophils % Lymphocytes % RBC Morphology Basophilic Stippling POC Chloride Chloride 93 L 91 L Carbon Dioxide 43 H* 40 H POC Total CO2 Anion Gap 6.0 L 7.0 L POC BUN BUN 27 H Creatinine 1.3 H 1.3 H POC Creatinine Glucose 133 H 272 H POC Glucose POC WB Ioniz Calcium Alkaline Phosphatase 120 H 153 H NT-Pro-B Natriuret Pep 08/02/17 08/01/17 08/01/17 04:00 14:28 14:28 RBC 3.80 L Hgb 11.4 L Hct 35.6 L MPV 11.2 H Seg Neutrophils % 93 H Lymphocytes % 2 L RBC Morphology Abnorm A Basophilic Stippling Few A POC Chloride 95 L Chloride Carbon Dioxide 38 H POC Total CO2 41 H* Anion Gap POC BUN 24 H BUN Creatinine POC Creatinine 1.2 H Glucose 187 H POC Glucose 185 H POC WB Ioniz Calcium 1.13 L Alkaline Phosphatase 134 H NT-Pro-B Natriuret Pep 250.9 H 08/01/17 14:28 RBC 3.69 L Hgb 11.1 L Hct 34.6 L MPV 10.7 H Seg Neutrophils % 81 H Lymphocytes % 7 L RBC Morphology Basophilic Stippling POC Chloride Chloride Carbon Dioxide POC Total CO2 Anion Gap POC BUN BUN Creatinine POC Creatinine Glucose POC Glucose POC WB Ioniz Calcium Alkaline Phosphatase NT-Pro-B Natriuret Pep Meds: Medications Acetaminophen (Tylenol) 650 mg PO Q4 [facility] Last Admin: 08/03/17 09:18 Dose: 650 mg Acetaminophen/Codeine Phosphate (Tylenol #3) 1 tab PO Q4HP PRN PRN Reason: Pain Acetylcysteine (Mucomyst) 600 mg NEB BID [facility] Last Admin: 08/03/17 07:44 Dose: 600 mg Albuterol/Ipratropium (Duoneb) 3 ml NEB Q6HRT [facility] Last Admin: 08/03/17 07:44 Dose: 3 ml Amlodipine Besylate (Norvasc) 5 mg PO QDAY [facility] Last Admin: 08/03/17 09:21 Dose: 5 mg Cyanocobalamin (Vitamin B-12) 1,000 mcg PO DAILY [facility] Last Admin: 08/03/17 09:19 Dose: 1,000 mcg Dextrose (Dextrose 50%) 0 ml IV UD PRN PRN Reason: Hypoglycemia Diagnostic Test (Pha) (Accu-Chek) 1 each FS ACHS [facility] Last Admin: 08/03/17 08:13 Dose: 1 each Furosemide (Lasix) 20 mg PO DAILY [facility] Last Admin: 08/03/17 09:19 Dose: 20 mg Glucose (Insta-Glucose) 15 gm PO PRN PRN PRN Reason: Hypoglycemia Heparin Sodium (Porcine) (Heparin) 5,000 unit SQ Q8 [facility] Last Admin: 08/03/17 06:24 Dose: 5,000 unit Azithromycin 500 mg/ Dextrose 250 mls @ 250 mls/hr IV Q24H [facility] Stop: 08/04/17 10:59 Last Infusion: 08/02/17 19:47 Dose: Infused Ceftriaxone Sodium 1 gm/ (Dextrose) 50 mls @ 100 mls/hr IV Q24H [facility] Stop: 08/06/17 08:59 Last Admin: 08/03/17 09:20 Dose: 50 mls/hr Insulin Glargine (Lantus) 20 unit SQ [facility] Last Admin: 08/02/17 22:22 Dose: 20 unit Insulin Human Lispro (Humalog) [address] [facility] PRN Reason: Protocol Last Admin: 08/03/17 08:13 Dose: 2 unit Insulin Human Lispro (Humalog) 6 unit SQ [facility] Last Admin: 08/03/17 08:14 Dose: 6 unit Loratadine (Claritin) 10 mg PO QDAY [facility] Last Admin: 08/03/17 09:16 Dose: 10 mg Ondansetron HCl (Zofran) 4 mg IV Q4-6HP PRN PRN Reason: Nausea And Vomiting Last Admin: 08/02/17 11:00 Dose: 4 mg Oxycodone HCl (Roxicodone) 2.5 mg PO Q6HP PRN PRN Reason: Pain Last Admin: 08/01/17 23:30 Dose: 2.5 mg Pantoprazole Sodium (Protonix) 40 mg PO QAMAC [facility] Last Admin: 08/03/17 09:18 Dose: 40 mg Paroxetine HCl (Paxil) 40 mg PO DAILY [facility] Last Admin: 08/03/17 09:16 Dose: 40 mg Iron Bis Glycinate (Chelate) 1 dose PO DAILY [facility] Last Admin: 08/03/17 09:22 Dose: Not Given Mometasone/Formoterol [Dulera] 200 Mcg/5 Mcg Inhaler 2 dose INH BID [facility] Last Admin: 08/03/17 09:22 Dose: 2 dose Prednisone (Prednisone) 60 mg PO [facility] Last Admin: 08/03/17 09:18 Dose: 60 mg Senna (Senokot) 2 tab PO [facility] PRN PRN Reason: Constipation Sodium Chloride (Saline Flush) 10 ml IV Q8 [facility] Last Admin: 08/03/17 06:25 Dose: 10 ml Medical - PN: A/P - Time Spent With Patient Total time spent is greater than 50% in coordination of care (as documented) at patient's floor/unit and/or counseling patient: Greater than 35 minutes - Narrative A/P Narrative: #Acute on chronic hypoxic hypercapnic respiratory failure, multifactorial -Right lower lobe pneumonia with COPD exacerbation -Atelectasis -Possible pulmonary edema w elevated BNP -Underlying OHS/RENE--on home ventilator QHS and 3L O2 at home -with possible platypnea--likely r/t COPD and chest wall pain and abdominal hernia. Consider echo to evaluate for shunt if worsening Plan: 1. Cont home Trilogy use HS and PRN 2. CTX (to end 08/06) and azithromycin (to end 08/04). BC neg 3. Prednisone 60 QD, Cont Q6H duonebs. Cont home Dulera. 4. IS 5. Cont home Lasix; watch vol status closely. Cr stable. 6. Hold home clonazepam. #Recent fall -no e/o fx on any imaging. All soft tissue pain -pain management challenging d/t resp status; pain improved today Plan: 1. PT/OT 2. Scheduled tylenol. Avoid NSAIDs w known CKD 3. low dose oxycodone and Tylenol #3. Lidocaine patches ineffective. #Pancreatic lesion -CA 19-[address] abd/pelvis pancreatic protocol ordered for tomorrow. Pt and aware of plan and findings. #Insulin-dependent diabetes mellitus type 2 -Home regimen: Toujeo 15 units HS -Will likely have steroid hyperglycemia Plan: 1. Lantus 20 units HS, SSI tier 2. Carb coverage unavailable. Increase prandial to 6 TID. 2. ADA diet #Anemia with known ISAAC and B12 deficiency -endoscopic evaluation in the past Plan: 1. Monitor H/H. No need for transfusion at this point. 2. Cont home Fe and B12. #HTN -cont home amlodipine. #Morbid obesity #DVT ppx: heparin TID #Code: DNR/DNI. Her is her surrogate MDM. Medical - PN: Qual - VTE Deep Vein Thrombosis/Pulmonary Embolism Present on Admission: No
[2017-08-03] MEDS: AZITHROMYCIN 500 MG in DEXTROSE 5% IN WATER 250 ML IV SCH (10:18)
[2017-08-03] MEDS: INSULIN GLARGINE, HUMAN 1 UNIT/0.01 ML SQ SCH (22:01)
[2017-08-04] MEDS: ACETAMINOPHEN 325 MG TABLET PO SCH ×6 (01:05→20:18)
[2017-08-04] MEDS: IPRATROPIUM/ALBUTEROL 3 ML AMPUL.NEB NEB SCH ×4 (01:06→19:17)
[2017-08-04 02:05] LABS: Appearance,Urine CLEAR; Bilirubin,Urine NEG (NEG); Color,Urine YELLOW; Glucose,Urine (UA) NEGATIVE (NEG); Leukocyte Esterase,Urine NEG /uL (NEG); Nitrate,Urine NEG (NEG); Protein,Urine NEG (NEG); Specific Gravity,Urine 1.017 (1.000-1.035); Urine Blood NEG mg/dL (<0.03); Urobilinogen,Urine NEG (NEG)
[2017-08-04] MEDS: HEPARIN 5,000 UNIT/ML VIAL SQ SCH ×3 (05:27→20:17)
[2017-08-04] MEDS: 0.9 % SODIUM CHLORIDE 10 ML SYRINGE IV SCH ×3 (05:27→21:10)
[2017-08-04 05:36] LABS: Mean Cell Volume 93.9 fL (80.0-100.0); Mean Corpuscular HGB Conc 31.8 g/dL (31.0-36.0); Mean Corpuscular Hemoglobin 29.9 pg (26.0-34.0); Platelet Count 200 K/mcL (140-440); RBC 3.45 M/mcL (4.00-5.20); Red Cell Distribution Width 14.7 % (11.5-14.5)
[2017-08-04 06:00] LABS: ALT/SGPT 21 U/l (0-40); Albumin 3.2 gm/dL (3.2-5.2); Albumin/Globulin Ratio 0.9 (1.0-2.3); Alkaline Phosphatase 107 U/L (39-117); Blood Urea Nitrogen 34 mg/dl (8-23)
[2017-08-04 06:46] LABS: Band Neutrophils % 2 % (0-10); Lymphocytes % 16 % (15-49); Monocytes % (Manual) 7 % (1-12); Platelet Estimate NORMAL (NORMAL); RBC Morphology NORMAL (NORMAL); Segmented Neutrophils % 75 % (38-78)
[2017-08-04] MEDS: ACETYLCYSTEINE 800 MG/4 ML VIAL NEB SCH ×2 (07:59→19:17)
[2017-08-04] MEDS ORDERED: IOPAMIDOL 100 ML BOTTLE IV ONE (08:50)
[2017-08-04] MEDS: PANTOPRAZOLE 40 MG TABLET PO SCH (09:11)
[2017-08-04] MEDS: INSULIN LISPRO 1 UNIT/0.01 ML UNIT SQ SCH ×7 (09:29→20:19)
[2017-08-04] MEDS: predniSONE 20 MG TABLET PO SCH (09:30)
[2017-08-04] MEDS: LORATADINE 10 MG TABLET PO SCH (09:31)
[2017-08-04] MEDS: FUROSEMIDE 20 MG TABLET PO SCH (09:32)
[2017-08-04] MEDS: PARoxetine 20 MG TABLET PO SCH (09:32)
[2017-08-04] MEDS: amLODIPine 5 MG TABLET PO SCH (09:32)
[2017-08-04] MEDS: CYANOCOBALAMIN (VITAMIN B-12) 500 MCG TABLET PO SCH (09:32)
[2017-08-04] MEDS: Mometasone/Formoterol [Dulera] 200 Mcg/5 Mcg Inhaler INH SCH ×2 (09:33→20:20)
[2017-08-04] MEDS: cefTRIAXone 1 GM in DEXTROSE 5% IN WATER 50 ML IV SCH (09:33)
--- NOTE | 2017-08-04 09:36 | Cat Scan Report ---
History: Follow-up pancreatic mass seen on a recent chest CT Findings: The patient was imaged first without oral or IV contrast. Nonionic contrast was administered. Images were acquired during arterial and venous phase. Sagittal and coronal reformats were created along with 3-D volume and are images of the abdominal aorta. There is a small wedge-shaped band of consolidated lung parenchyma posterior basal segment of the right lower lobe. The consolidation has become worse since the recent chest CT done on 08/01/17. There is bronchiectasis posteriorly in both lower lobes, right worse left. Patient also has a tiny layering right-sided pleural effusion. The liver and spleen are normal in size and homogeneous. Gallbladder is absent. The bile ducts are normal in caliber. Along the posterior side of the tail of the pancreas there is a well-circumscribed 1.2 x 1.6 x 1.9 cm homogeneous low-attenuation structure. It has water attenuation. There is no enhancement within it or adjacent to it on the postcontrast views. The remainder of the pancreas is normal and homogeneous. There is no dilatation of pancreatic duct there are no calcifications in the pancreas. There is no retroperitoneal adenopathy. The adrenals and kidneys are normal. There is fecal impaction throughout the colon. The visualized portion of the small intestine is normal in caliber. 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 No lytic or blastic bone metastasis are present. There is a moderate amount calcified plaque in the aorta and proximal right common iliac artery. Is also mild plaque formation at the origin of the celiac and superior mesenteric arteries. These do not appear to be causing hemodynamically significant stenosis. Impression: 1.2 x 1.6 x 1.9 cm cyst in the tail of the pancreas. This may be a simple cyst or a serous cystadenoma. This is unlikely a cystic malignancy. A follow-up upper abdominal CT with and without IV contrast in six months is recommended to ensure stability. Worsening consolidation posteriorly in the right lower lobe which may be atelectasis or pneumonia, related to the underlying bronchiectasis. Fecal impaction Interpreted and Authenticated by: Anant Nguyen 08/04/17
[2017-08-04] MEDS: AZITHROMYCIN 500 MG in DEXTROSE 5% IN WATER 250 ML IV SCH (11:30)
--- NOTE | 2017-08-04 12:07 | Internal Med Progress Note ---
Medical - PN: Subj Patient information: Note initiated : 08/04/17 at 12:05 pm Service Date, if different from initiated Date: [] Patient: Trevor Garcia 66 y/o F admitted on 08/01/17 for Shortness of Breath/ Pneumonia. Chief Complaint: [] Interval history: Admit August 01: This is a 66-year-old female with a history of chronic hypoxic hypercapnic respiratory failure secondary to advanced COPD and RENE chronically on 3 L of oxygen with Trilogy ventilator use at night who is admitted with acute on chronic hypoxic hypercapnic respiratory failure secondary to right lower lobe pneumonia with COPD exacerbation, atelectasis secondary to rib bruising after mechanical fall 3 days prior to admission and opiates given for pain control. She has been started on ceftriaxone and azithromycin, continued her home ventilator use, and started on steroids with nebs and Mucomyst. CT scan incidentally found a pancreatic lesion. August 02: Her breathing is better than last night and she is more awake although she continues to desaturate to the 60-70s with any getting out of bed. Her breathing has historically better while laying flat due to a large abdominal hernia. This continues to be the case. She is saturating well on 3- 5 L. The lidocaine patches were not helpful for her pain and she would like to try Tylenol 3 again. We discussed splinting techniques for coughing. Discussed her pancreatic lesion seen on CT and that this cannot be done until her stress test improves. Her blood sugars continue to run high on the steroids. She has noted they have been high since her dental caries started. August 03: Her was adjusting the bed last night and she got into position that "popped everything back into place". Her pain is much improved today although she has residual right chest wall pain. She is able to productively cough a little today. She is sitting up in chair without significant desaturation on 3 L. She still is unable to speak in complete sentences, but declines an increase in her steroids. Her blood sugars are still elevated and so I will increase her NovoLog to 6 units with meals in addition to sliding scale. Will plan for CT scan pancreas protocol tomorrow. August 04: She is able to bring up more sputum with her coughing and pain is improved, but she still feels like there is a band around her chest. She is getting anxious to go home but agrees to stay for another day of IV antibiotics. Her CT scan was done today which shows a simple pancreatic cyst with recommended follow-up CT in 6 months. Pertinent ROS: no nausea or weakness - Constitutional Vitals: Vital Signs Temp Pulse Resp BP Pulse Ox 99.2 F H 81 26 H 156/66 94 08/04/17 09:30 08/04/17 09:31 08/04/17 08:01 08/04/17 09:17 08/04/17 09:31 Period Temp Pulse Resp BP Sys/Bailey Pulse Ox Last 24 Hr 97.7 F-99.2 F 67-92 15-26 105-165/53-139 89-100 Intake and Output 08/03/17 08/04/17 08/04/17 21:59 05:59 13:59 Intake Total 820 / 820 540 / 540 Output Total 352 / 352 104 / 104 51 / 51 Balance 468 / 468 -104 / -104 489 / 489 Weight 198 lb 6.4 oz Intake & Output: Intake & Output 08/03/17 08/04/17 08/04/17 21:59 05:59 13:59 Intake Total 820 / 820 540 / 540 Output Total 352 / 352 104 / 104 51 / 51 Balance 468 / 468 -104 / -104 489 / 489 Weight 198 lb 6.4 oz Intake: IV 300 / 300 Zithromax 500 mg In Dextrose 5% 250 / 250 in Water 250 ml @ 250 mls/hr IV Q24H [facility] Rx#:[id number] Rocephin 1 gm In Dextrose 5% in 50 / 50 Water 50 ml @ 100 mls/hr IV Q24H [facility] Rx#:[id number] Oral 820 / 820 240 / 240 Output: Void Amount 350 / 350 100 / 100 50 / 50 # of times incontinent of urine 2 / 2 4 / 4 / Other: Meal Dinner Breakfast Percent of Meal Consumed 75% 100% Feeding Ability Independent Assist with Tray Set Up # Voids 0 1 Exam: General: No acute distress. CV: Regular rate and rhythm. Respiratory: She is able to speak in complete sentences. She has more air movement with wheezing today. Is more effective. Abdomen: Soft, nondistended, nontender. Positive bowel tones. Skin: Large ecchymoses over the right flank persists. Neuro: Alert and oriented 3. Psych: Normal mood and affect. Medical - PN: Obj Da - Labs CBC & Chem 7: 08/04/17 04:00 08/04/17 04:00 Labs: Abnormal Lab Results 08/04/17 08/04/17 08/03/17 04:00 04:00 04:30 RBC 3.45 L Hgb 10.3 L Hct 32.4 L RDW 14.7 H MPV 11.0 H Seg Neutrophils % Lymphocytes % RBC Morphology Basophilic Stippling POC Chloride Chloride 94 L 93 L Carbon Dioxide 39 H 43 H* POC Total CO2 Anion Gap 7.0 L 6.0 L POC BUN BUN 34 H 27 H Creatinine 1.2 H 1.3 H POC Creatinine Glucose 116 H 133 H POC Glucose POC WB Ioniz Calcium Alkaline Phosphatase 120 H NT-Pro-B Natriuret Pep Albumin/Globulin Ratio 0.9 L 08/03/17 08/02/17 08/02/17 04:30 04:00 04:00 RBC 3.58 L 3.80 L Hgb 10.8 L 11.4 L Hct 33.7 L 35.6 L RDW MPV 11.3 H 11.2 H Seg Neutrophils % 93 H Lymphocytes % 2 L RBC Morphology Abnorm A Basophilic Stippling Few A POC Chloride Chloride 91 L Carbon Dioxide 40 H POC Total CO2 Anion Gap 7.0 L POC BUN BUN Creatinine 1.3 H POC Creatinine Glucose 272 H POC Glucose POC WB Ioniz Calcium Alkaline Phosphatase 153 H NT-Pro-B Natriuret Pep Albumin/Globulin Ratio 08/01/17 08/01/17 08/01/17 14:28 14:28 14:28 RBC 3.69 L Hgb 11.1 L Hct 34.6 L RDW MPV 10.7 H Seg Neutrophils % 81 H Lymphocytes % 7 L RBC Morphology Basophilic Stippling POC Chloride 95 L Chloride Carbon Dioxide 38 H POC Total CO2 41 H* Anion Gap POC BUN 24 H BUN Creatinine POC Creatinine 1.2 H Glucose 187 H POC Glucose 185 H POC WB Ioniz Calcium 1.13 L Alkaline Phosphatase 134 H NT-Pro-B Natriuret Pep 250.9 H Albumin/Globulin Ratio Meds: Medications Acetaminophen (Tylenol) 650 mg PO Q4 [facility] Last Admin: 08/04/17 09:30 Dose: 650 mg Acetaminophen/Codeine Phosphate (Tylenol #3) 1 tab PO Q4HP PRN PRN Reason: Pain Acetylcysteine (Mucomyst) 600 mg NEB BID [facility] Last Admin: 08/04/17 07:59 Dose: 600 mg Albuterol/Ipratropium (Duoneb) 3 ml NEB Q6HRT [facility] Last Admin: 08/04/17 07:59 Dose: 3 ml Amlodipine Besylate (Norvasc) 5 mg PO QDAY [facility] Last Admin: 08/04/17 09:32 Dose: 5 mg Cyanocobalamin (Vitamin B-12) 1,000 mcg PO DAILY [facility] Last Admin: 08/04/17 09:32 Dose: 1,000 mcg Dextrose (Dextrose 50%) 0 ml IV UD PRN PRN Reason: Hypoglycemia Diagnostic Test (Pha) (Accu-Chek) 1 each FS ACHS [facility] Last Admin: 08/04/17 09:13 Dose: 1 each Furosemide (Lasix) 20 mg PO DAILY [facility] Last Admin: 08/04/17 09:32 Dose: 20 mg Glucose (Insta-Glucose) 15 gm PO PRN PRN PRN Reason: Hypoglycemia Heparin Sodium (Porcine) (Heparin) 5,000 unit SQ Q8 [facility] Last Admin: 08/04/17 05:27 Dose: 5,000 unit Ceftriaxone Sodium 1 gm/ (Dextrose) 50 mls @ 100 mls/hr IV Q24H [facility] Stop: 08/06/17 08:59 Last Admin: 08/04/17 09:33 Dose: 100 mls/hr Insulin Glargine (Lantus) 20 unit SQ HS [facility] Last Admin: 08/03/17 22:01 Dose: 20 unit Insulin Human Lispro (Humalog) 0 unit SQ ACHS [facility] PRN Reason: Protocol Last Admin: 08/04/17 09:29 Dose: 2 unit Insulin Human Lispro (Humalog) 6 unit SQ AC [facility] Last Admin: 08/04/17 09:29 Dose: 6 unit Loratadine (Claritin) 10 mg PO QDAY [facility] Last Admin: 08/04/17 09:31 Dose: 10 mg Ondansetron HCl (Zofran) 4 mg IV Q4-6HP PRN PRN Reason: Nausea And Vomiting Last Admin: 08/02/17 11:00 Dose: 4 mg Oxycodone HCl (Roxicodone) 2.5 mg PO Q6HP PRN PRN Reason: Pain Last Admin: 08/01/17 23:30 Dose: 2.5 mg Pantoprazole Sodium (Protonix) 40 mg PO QAMAC [facility] Last Admin: 08/04/17 09:11 Dose: 40 mg Paroxetine HCl (Paxil) 40 mg PO DAILY [facility] Last Admin: 08/04/17 09:32 Dose: 40 mg Iron Bis Glycinate (Chelate) 1 dose PO DAILY [facility] Last Admin: 08/03/17 09:22 Dose: Not Given Mometasone/Formoterol [Dulera] 200 Mcg/5 Mcg Inhaler 2 dose INH BID [facility] Last Admin: 08/04/17 09:33 Dose: 2 dose Prednisone (Prednisone) 60 mg PO [facility] Last Admin: 08/04/17 09:30 Dose: 60 mg Senna (Senokot) 2 tab PO [facility] PRN PRN Reason: Constipation Sodium Chloride (Saline Flush) 10 ml IV Q8 [facility] Last Admin: 08/04/17 05:27 Dose: 10 ml Medical - PN: A/P - Time Spent With Patient Total time spent is greater than 50% in coordination of care (as documented) at patient's floor/unit and/or counseling patient: Greater than 35 minutes - Narrative A/P Narrative: #Acute on chronic hypoxic hypercapnic respiratory failure, multifactorial -Right lower lobe pneumonia with COPD exacerbation -Atelectasis 2/2 chest wall pain -Mild pulmonary edema w elevated BNP, resolved -Underlying OHS/RENE--on home ventilator QHS and 3L O2 at home -with possible platypnea--likely r/t COPD and chest wall pain and abdominal hernia. Consider echo to evaluate for shunt if worsening Plan: 1. Cont home Trilogy use HS and PRN 2. CTX (to end 08/06) and azithromycin (to end today). BC neg 3. Prednisone 60 QD, Cont Q6H duonebs. Cont home Dulera. 4. IS 5. Cont home Lasix; watch vol status closely. Cr stable. 6. Hold home clonazepam. #Recent fall -no e/o fx on any imaging. All soft tissue pain -pain management challenging d/t resp status; pain improved today Plan: 1. PT/OT 2. Scheduled tylenol. Avoid NSAIDs w known CKD 3. low dose oxycodone and Tylenol #3. Lidocaine patches ineffective. 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 in 6 months. #Insulin-dependent diabetes mellitus type 2 -Home regimen: Toujeo 15 units HS -Will likely have steroid hyperglycemia Plan: 1. Lantus 20 units HS, SSI tier 2. Carb coverage unavailable. Cont prandial 6 TID. 2. ADA diet #Anemia with known ISAAC and B12 deficiency -endoscopic evaluation in the past Plan: 1. Monitor H/H. No need for transfusion at this point. 2. Cont home Fe and B12. #HTN -cont home amlodipine. #Morbid obesity #DVT ppx: heparin TID #Code: DNR/DNI. Her is her surrogate MDM. #ADOD: likely home tomorrow. She has declined home services. States she has OP pulm f/u later this week. Medical - PN: Qual - VTE Deep Vein Thrombosis/Pulmonary Embolism Present on Admission: No
[2017-08-04] MEDS: [UNRECOGNIZED DRUG - OTHER] PO SCH (12:57)
[2017-08-04] MEDS: traMADol 50 MG TABLET PO PRN (17:14)
[2017-08-04] MEDS: INSULIN GLARGINE, HUMAN 1 UNIT/0.01 ML SQ SCH (20:19)
[2017-08-05] MEDS: IPRATROPIUM/ALBUTEROL 3 ML AMPUL.NEB NEB SCH ×2 (00:13→07:54)
[2017-08-05] MEDS: ACETAMINOPHEN 325 MG TABLET PO SCH ×4 (00:14→12:03)
[2017-08-05] MEDS: 0.9 % SODIUM CHLORIDE 10 ML SYRINGE IV SCH (05:36)
[2017-08-05] MEDS: HEPARIN 5,000 UNIT/ML VIAL SQ SCH (05:36)
[2017-08-05 06:01] LABS: Mean Cell Volume 94.1 fL (80.0-100.0); Mean Corpuscular HGB Conc 32.2 g/dL (31.0-36.0); Mean Corpuscular Hemoglobin 30.2 pg (26.0-34.0); Platelet Count 219 K/mcL (140-440); RBC 3.66 M/mcL (4.00-5.20); Red Cell Distribution Width 14.4 % (11.5-14.5)
[2017-08-05 06:40] LABS: Band Neutrophils % 3 % (0-10); Lymphocytes % 12 % (15-49); Monocytes % (Manual) 7 % (1-12); Platelet Estimate NORMAL (NORMAL); RBC Morphology NORMAL (NORMAL); Segmented Neutrophils % 78 % (38-78)
[2017-08-05 06:43] LABS: ALT/SGPT 42 U/l (0-40); Albumin 3.8 gm/dL (3.2-5.2); Albumin/Globulin Ratio 1.4 (1.0-2.3); Alkaline Phosphatase 115 U/L (39-117); Blood Urea Nitrogen 31 mg/dl (8-23)
[2017-08-05] MEDS: ACETYLCYSTEINE 800 MG/4 ML VIAL NEB SCH (07:54)
[2017-08-05] MEDS: Mometasone/Formoterol [Dulera] 200 Mcg/5 Mcg Inhaler INH SCH (07:55)
[2017-08-05] MEDS: INSULIN LISPRO 1 UNIT/0.01 ML UNIT SQ SCH ×4 (08:18→12:03)
[2017-08-05] MEDS: PANTOPRAZOLE 40 MG TABLET PO SCH (08:28)
[2017-08-05] MEDS: cefTRIAXone 1 GM in DEXTROSE 5% IN WATER 50 ML IV SCH (09:00)
--- NOTE | 2017-08-05 09:45 | Discharge Summary ---
Medical - DS: Prov Patient information: Note initiated : 08/05/17 at 9:44 am Service Date, if different from initiated Date: [] Patient: Trevor Garcia 66 y/o F admitted on 08/01/17 for Shortness of Breath/ Pneumonia. Chief Complaint: [] Date of admission: 08/01/17 18:35 Discharge date: 08/05/17 Primary care physician: Yola Paul Admitting clinician: Alise Peña Consults: 08/01/17 15:19 Consult to Physician [CONS] Stat Comment: Consulting Provider: Alise Peña Reason For Exam: Physician to Consult Discharging clinician: Lisa Wood Medical - DS: Meds - Discharge Medications Prescriptions: Levofloxacin 750 mg PO DAILY #3 tab predniSONE [Prednisone] 40 mg PO ONCE #6 tab Active and Home Medications: Home Medications Furosemide [Lasix] 1 tab PO DAILY 06/06/15 [History Confirmed 08/02/17 Last Taken 08/01/17 09:00] Ipratropium/Albuterol [Duoneb] 3 ml NEB Q6H 06/06/15 [History Confirmed Last Taken 03/11/17] PARoxetine HCL [Paxil] 40 mg PO DAILY 06/06/15 [History Confirmed 08/02/17 Last Taken 08/01/17 09:00 1] Pantoprazole [Protonix] 40 mg PO QAMAC 06/06/15 [History Confirmed 08/02/17 Last Taken 08/01/17 09:00 1] traZODone HCL [Desyrel] 50 mg PO HS 06/06/15 [History Confirmed 08/02/17 Last Taken 07/31/17 21:00 1] Mometasone/Formoterol [Dulera 200 Mcg/5 Mcg Inhaler] 2 puff IH BID 06/07/15 [ History Confirmed 08/02/17 Last Taken 08/01/17 09:00] albuterol sulfate HFA 90 mcg/actuation aerosol inhaler 1 puff INHALATION ONCE PRN 08/04/15 [History Confirmed 08/02/17 Last Taken 03/11/17] cyanocobalamin (vit B-12) 1,000 mcg tablet 1,000 mcg PO QDAY 07/03/16 [History Confirmed 08/02/17 Last Taken 03/11/17] iron bis glycinate ju 28 mg iron-vit C 60 mg-FA 400 mcg-B12 8mcg cap 1 cap PO .QD 07/03/16 [History Confirmed 08/02/17 Last Taken 03/11/17] loratadine 10 mg tablet 10 mg PO QDAY 07/03/16 [History Confirmed 08/01/17 Last Taken 08/01/17 09:00] amlodipine 5 mg tablet 5 mg PO QDAY #30 tab 10/21/16 [Rx Confirmed 08/02/17 Last Taken 08/01/17 09:00 1] clonazepam 0.5 mg tablet 0.5 mg PO QDAY tab 07/08/17 [History Confirmed Last Taken Unknown] diphenhydramine 25 mg-acetaminophen 500 mg tablet 1 tab PO QHS PRN 07/08/17 [ History Confirmed 08/02/17 Last Taken Unknown] insulin glargine 300 unit/mL (1.5 mL) subcutaneous pen 15 unit SUB-Q QDAY ml [History Confirmed 08/02/17 Last Taken Unknown] docusate sodium 100 mg capsule 100 mg PO DAILY 07/15/17 [History Confirmed 08/02 Last Taken Unknown] Clindamycin HCl [Cleocin] 300 mg PO QID #40 capsule 07/30/17 [Rx Confirmed 08/02 Last Taken 08/01/17 12:00] traMADol [Ultram] 50 mg PO DAILY 07/30/17 [History Confirmed 08/02/17 Last Taken Unknown] Acetaminophen W/Codeine #3 [Tylenol #3] 1 tab PO Q4-6HP PRN #15 tablet 07/31/17 [Rx Confirmed 08/02/17 Last Taken 08/01/17 12:00] Methocarbamol [Robaxin] 750 mg PO TIDP PRN #20 tablet 07/31/17 [Rx Confirmed Last Taken 08/01/17 12:00 1] guaiFENesin [Mucinex] 600 mg PO BID 08/02/17 [History Confirmed 08/02/17 Last Taken Unknown] Medical - DS: Hosp Hospital course: Ms. Garcia is a 66 year old F with a history of chronic hypoxic hypercapnic respiratory failure secondary to advanced COPD and RENE chronically on 3 L of oxygen with Trilogy ventilator use at night who is admitted to the hospital with acute on chronic hypoxic hypercapnic respiratory failure secondary to right lower lobe pneumonia with COPD exacerbation, atelectasis secondary to rib bruising after mechanical fall 3 days prior to admission and opiates given for pain control. She has been started on ceftriaxone and azithromycin, continued her home ventilator use, and started on steroids with nebs and Mucomyst. Pneumonia: Treated with IV zithromax and rocephin 4 days of abx given while inpatient she improved with the antibiotic regime, She will be discharged home one po levoflox for additional 3 days. COPD exacerbation/ acute on chr resp failure : Treated with duonebs, and steroids, she responded to treatment well, she continued to use her trilogy ventilator while in the hospiotal. At the time of discharge she is back to her baseline oxygen use of 3L CTA to r/o PE showed now PE but did find an incidentally found a pancreatic lesion, repeat CT abdomen with pancreas protocol found a simple cyst, advised repeat CT in 6 months Anemia Stable, follow up with PCP at discharge. The rest of the patients conditions were stable, she had no changes done to her home regime except short term use of antibiotics and steroids. Discharge diagnosis: Pneumonia, Copd exacerbation - Time Spent with Patient Total time spent providing and/or coordinating discharge services: Greater than 30 minutes Medical - DS: Exam - Constitutional Vitals: Vital Signs Temp Pulse Resp BP Pulse Ox 08/05/17 09:26 80 97 08/05/17 08:01 19 143/85 96 08/05/17 07:59 72 18 08/05/17 07:58 75 18 96 08/05/17 07:01 98.0 F 22 157/86 95 08/05/17 06:01 18 157/90 100 08/05/17 05:01 16 150/78 96 08/05/17 04:04 97.9 F 20 159/85 95 08/05/17 03:00 18 151/79 98 08/05/17 02:00 16 143/73 95 08/05/17 01:01 18 141/67 94 08/05/17 00:31 93 08/05/17 00:01 97.5 F 18 144/60 91 08/04/17 23:01 133/62 98 08/04/17 22:00 18 130/117 96 08/04/17 21:01 18 148/60 100 08/04/17 20:07 85 95 08/04/17 20:00 97.8 F 83 24 H 162/61 91 08/04/17 19:35 83 18 94 08/04/17 19:01 85 153/83 95 08/04/17 17:00 99.1 F H 22 124/88 97 08/04/17 16:37 88 99 08/04/17 16:00 87 122/103 94 08/04/17 15:37 98.9 F 89 162/73 93 08/04/17 15:36 87 93 08/04/17 15:35 98.9 F 86 22 162/73 92 08/04/17 14:02 81 134/87 99 08/04/17 13:45 79 18 08/04/17 13:04 86 155/98 92 08/04/17 13:03 87 88 L 08/04/17 12:24 79 131/86 97 08/04/17 12:00 97.6 F 20 131/86 97 08/04/17 10:20 78 152/72 97 08/04/17 10:15 98.2 F Intake and Output 08/04/17 08/05/17 08/05/17 21:59 05:59 13:59 Intake Total 660 / 660 200 / 200 240 / 240 Output Total 1005 / 1005 201 / 201 451 / 451 Balance -345 / -345 -1 / -1 -211 / -211 Intake: IV 300 / 300 Rocephin 1 gm In Dextrose 5% in 50 / 50 Water 50 ml @ 100 mls/hr IV Q24H [facility] Rx#:[id number] Oral 360 / 360 200 / 200 240 / 240 Output: Void Amount 1000 / 1000 200 / 200 450 / 450 # of times incontinent of urine 5 / 5 Other: Meal Lunch Breakfast Percent of Meal Consumed 100% 100% Feeding Ability Assist with Tray Set Up # Bowel Movements 0 Weight 196 lb 6.4 oz Additional comments: Constitutional; Afebrile, cooperative, alert, not in distress. Eyes- No icterus, , No periorbital swelling Ears- Ext ear normal, hearing normal to conversation. Neck- Midline trachea, supple Respiratory system: Air Entry equal on both sides but bilaterally decreased breath sounds. No crackles or wheezing, no rhonchi. CVS- Rate rhythm regular, S1,S2 heard, no gallop, no rub. Abdomen- Soft nontender abdomen, no organomegaly, no tenderness, no guarding or rigidity, SWITCH TENDER- AOOx3, moving all extremities, no gross focal deficit noted. Medical - DS: Data Labs on day of discharge: Labs from last 24 hours 08/05/17 08/05/17 04:00 04:00 WBC 9.6 RBC 3.66 L Hgb 11.1 L Hct 34.5 L MCV 94.1 MCH 30.2 MCHC 32.2 RDW 14.4 Plt Count 219 MPV 10.5 H Total Counted 100 Seg Neutrophils % 78 Band Neutrophils % 3 Lymphocytes % 12 L Monocytes % (Manual) 7 Platelet Estimate Normal RBC Morphology Normal Sodium 141 Potassium 4.9 Chloride 92 L Carbon Dioxide 42 H* Anion Gap 7.0 L BUN 31 H Creatinine 1.1 GFR Calculation 52 Glucose 115 H Calcium 9.2 Total Bilirubin 0.2 AST 35 ALT 42 H Alkaline Phosphatase 115 Total Protein 6.5 Albumin 3.8 Globulin 2.7 Albumin/Globulin Ratio 1.4 Preliminary micro results at discharge 08/01/17 17:34 Blood Culture - Preliminary Blood 08/01/17 17:47 Blood Culture - Preliminary Blood Medical - DS: A/P - Patient/Caregiver Discharge Instructions Activity: resume usual activities as tolerated, wear oxygen at all times Diet: Cardiac, Consistent Carbohydrate Additional Instructions: Follow up with your pcp in 7 days Follow up with Pulmonary in a few days. Take prednisone for additional 3 days, with food and or milk, Take levofloxacin (antibiotic) for another 3 days. NO changes has been done to your home medication list, please continue taking them as before. YOu had a incidental finding of pancreatic lesion, CT does show a cyst, you will need a repeat CT in 6 months to ensure that this is stable. Your PCP should order this test for you. Go to the ER for worsening symptoms or any other concerning symptom. - Follow up Plan Follow up with: Marek Niño MD [Physician] - 08/08/17 1:00 pm Yola Paul MD [Primary Care Provider] - 08/07/17 3:40 pm Disposition: Home, Self-Care Prognosis: Fair Rehab Potential: Fair I certify that the patient requires SNF services: No Overall status at discharge: patient is progressing back to baseline Medical - DS: Qual - VTE Deep Vein Thrombosis/Pulmonary Embolism Present on Admission: No
[2017-08-05] MEDS: amLODIPine 5 MG TABLET PO SCH (10:25)
[2017-08-05] MEDS: predniSONE 20 MG TABLET PO SCH (10:25)
[2017-08-05] MEDS: PARoxetine 20 MG TABLET PO SCH (10:26)
[2017-08-05] MEDS: traMADol 50 MG TABLET PO PRN (10:27)
[2017-08-05] MEDS: LORATADINE 10 MG TABLET PO SCH (10:27)
[2017-08-05] MEDS: CYANOCOBALAMIN (VITAMIN B-12) 500 MCG TABLET PO SCH (10:27)
[2017-08-05] MEDS: [UNRECOGNIZED DRUG - OTHER] PO SCH (10:28)
[2017-08-05] MEDS: FUROSEMIDE 20 MG TABLET PO SCH (10:28)
== END 2017-08-05 11:30 | disposition home or self-care (01) | DRG 190 ==
LOC: ED 13:46 → ICU 18:35
PROVIDERS: ADMIT Internal Medicine; ATTEND Internal Medicine

== ENCOUNTER 2020-01-23 18:29 | Inpatient (IN) ==
[2020-01-23] MEDS ORDERED: INSULIN REGULAR, HUMAN 1 UNIT/0.01 ML UNIT SQ ONE (19:12)
--- NOTE | 2020-01-23 19:28 | Emergency Department Note ---
Weakness HPI - General Chief complaint: Weakness Stated complaint: weakness Time Seen by Provider: 01/23/20 18:33 Source: patient Mode of arrival: EMS Limitations: no limitations - History of Present Illness HPI Narrative: 69-year-old female presents via EMS. She was seen here 6 or 7 hours ago for generalized weakness and she is back with weakness and confusion. Significant other called EMS after another fall. Patient states "that is because somebody keeps pushing me ". She is confused intermittently and it is hard to tell if she is confused and saying this or if there is concern of someone truly pushing her. She feels generally weak and a little bit short of breath but she states better than earlier. However EMS reports her oxygen saturations were 80% on their arrival even on her home oxygen. States she may have hit her head when she fell and does have a minor headache. No loss of consciousness. No neck or back pain other than the low back pain that was evaluated earlier today. No incontinence of bowel or bladder. No dysuria or frequency. She does have a cough that is chronic. No other cold symptoms. - Related Data Home Medications Medication Instructions Recorded Confirmed Ipratropium/Albuterol [Duoneb] 3 ml NEB Q6H 06/06/15 01/23/20 PARoxetine HCL [Paxil] 40 mg PO DAILY 06/06/15 01/23/20 Pantoprazole [Protonix] 40 mg PO QAMAC 06/06/15 01/23/20 traZODone HCL [Desyrel] 50 mg PO HS 06/06/15 01/23/20 cyanocobalamin (vitamin B-12) 5,000 mcg PO QDAY 07/03/16 01/23/20 1,000 mcg tablet diphenhydramine 25 1 tab PO QHS PRN 07/08/17 01/23/20 mg-acetaminophen 500 mg tablet guaiFENesin [Mucinex] 600 mg PO BID 08/02/17 01/23/20 insulin glargine U-300 conc 300 18 unit SUB-Q QDAY ml 11/11/17 01/23/20 unit/mL (1.5 mL) subcutaneous pen tramadol 50 mg tablet 50 mg PO DAILY PRN 06/19/18 01/23/20 amlodipine 5 mg tablet 5 mg PO DAILY tab 06/29/18 01/23/20 clonazepam 0.5 mg tablet 0.5 mg PO QDAY tab 12/07/18 01/23/20 alendronate 70 mg tablet 70 mg PO QWEEK 02/17/19 01/23/20 cholecalciferol (vitamin D3) 25,000 unit PO QDAY cap 12/14/19 01/23/20 25,000 unit capsule ferrous sulfate 325 mg (65 mg 325 mg PO QDAY 12/14/19 01/23/20 iron) tablet loratadine 10 mg capsule 10 mg PO QDAY 12/14/19 01/23/20 prednisone 10 mg tablet 10 mg PO QDAY 12/14/19 01/23/20 Atorvastatin [Lipitor] 20 mg PO HS 01/23/20 01/23/20 Previous Rx's Medication Instructions Recorded Ventolin HFA 90 mcg/actuation 2 puff INHALATION Q6H PRN #18 g NS 02/17/19 aerosol inhaler furosemide 20 mg tablet 20 mg PO DAILY #90 tab 12/07/19 albuterol sulfate 90 mcg/actuation 2 puff INHALATION Q6H PRN #18 g 12/14/19 aerosol inhaler budesonide 0.25 mg/2 mL suspension 2 ml INHALATION BID #120 ml 12/14/19 for nebulization formoterol fumarate 20 mcg/2 mL 2 ml INHALATION BID #120 ml 12/14/19 solution for nebulization ciprofloxacin HCl 750 mg tablet 750 mg PO BID 10 Days #20 tab 01/18/20 Azithromycin 250 mg PO DAILY #6 tab 01/23/20 Allergies Allergy/AdvReac Type Severity Reaction Status Date / Time hydrocodone Allergy Severe Swelling Verified 01/23/20 18:45 Amoxicillin AdvReac Mild Gastrointestinal Verified 01/23/20 18:45 Upset doxycycline AdvReac Mild bloating Verified 01/23/20 18:45 meperidine [From Demerol] AdvReac Mild Vomiting Verified 01/23/20 18:45 narcotics AdvReac respiratory Uncoded 01/13/20 08:48 depression Review of Systems All systems ED: reviewed and negative except as stated. Past Medical History - Past Medical History PMF Narrative: Medical History (Last Reviewed 01/13/20 @ 09:08 by Marek Niño MD) Cavitary lesion of lung (Chronic) Type 2 diabetes mellitus, with long-term current use of insulin (Chronic) CKD (chronic kidney disease), stage III (Chronic) Hypoxemia (Chronic) Anxiety (Chronic) Bilateral hand pain (Chronic) Hypercholesterolemia (Chronic) Hypertension (Chronic) End stage COPD (Chronic) Oxygen dependent (Chronic) Pneumonia (Acute) Respiratory failure (Acute) Sepsis (Acute) Hypercapnic respiratory failure (Acute) Acute respiratory failure (Acute) Acute respiratory failure with hypoxia and hypercapnia (Acute) Bronchitis (Acute) COPD exacerbation (Acute) Acute anxiety (Acute) Excessive cerumen in left ear canal (Acute) COPD exacerbation (Acute) Community acquired pneumonia (Acute) Gastroenteritis (Acute) Chronic kidney disease, stage IV (severe) (Chronic) Anemia (Chronic) Hypertensive renal disease (Chronic) CKD (chronic kidney disease), stage III (Chronic) Actinic keratosis (Chronic) Osteopenia (Chronic) Unspecified urinary incontinence (Chronic) Anxiety state (Chronic) Situational depression (Chronic) Right arm pain (Chronic) Pain in hand (Chronic) Accidental fall (Chronic) GERD (gastroesophageal reflux disease) (Chronic) Diabetes mellitus, type II (Chronic) Hypertension, essential (Chronic) Allergic rhinitis (Chronic) COPD (chronic obstructive pulmonary disease) (Chronic) Glossitis (Chronic) Hemangioma (Chronic) Keratosis, seborrheic (Chronic) Lentigo (Chronic) Benign neoplasm of skin (Chronic) Acquired skin tag (Chronic) Hyperkalemia (Chronic) Acute infective cystitis (Resolved) Acute renal failure (ARF) (Resolved) Past Surgical History (Last Reviewed 01/13/20 @ 09:08 by Marek Niño MD) History of cholecystectomy (Acute) Medical history: Reports: COPD, CAD (coronary artery disease), DM, GERD, hypertension, osteoporosis, renal disease Psychiatric history: Reports: anxiety, depression [employer] history: Reports: non-contributory Surgical history ED: Reports: orthopedic, other, tonsillectomy - Social History smoking status: Former smoker Alcohol use: Reports: Rarely Drug use: Reports: none Physical Exam Limitations: no limitations General appearance: alert Head: atraumatic, normocephalic, normal inspection Eye: Present: normal appearance. Absent: conjunctival injection ENT: Present: mucous membranes moist, TM's normal bilaterally, normal external ear exam Neck: Present: normal inspection, trachea midline. Absent: tenderness, lymphadenopathy Chest: Present: symmetric chest wall rise Respiratory: Present: respiratory distress (mild tachypnea on arrival), rales/crackles (Some crackles that clear with cough), wheezes (Diminished in the bases with slight expiratory wheezing bilaterally), accessory muscle use (mild) Cardiovascular: Present: regular rate, normal heart sounds Abdominal: Present: soft, normal bowel sounds. Absent: distention, tenderness, guarding Extremities: Present: normal inspection Neurological: Present: alert. Absent: oriented X3 (Pleasantly confused at times and other times is oriented.) Psychiatric: Present: normal affect, normal mood Skin: Present: warm, dry, intact, normal color Course Course Narrative: When talking to patient about what her CODE STATUS is and what all she would like done she states "just let me go ". When talking to her who is at the bedside he states she is comfort measures only but does use oxygen and has a BiPAP machine at home that she wears at night and sometimes during the day as well. States some measures like that are okay but basically she just wants to be kept comfortable. At 1939 I do have a call into the hospitalist, Dr. Banegas. @1942 Dr. Cordova accepts pt Vital Signs Temperature 99.1 F H 01/23/20 18:30 Pulse Rate 100 H 01/23/20 18:30 Respiratory Rate 30 H 01/23/20 18:30 Blood Pressure 155/110 01/23/20 18:30 Pulse Oximetry (%) 93 01/23/20 18:30 Temperature 99.1 F H 01/23/20 18:30 Pulse Rate 97 H 01/23/20 19:01 Respiratory Rate 22 01/23/20 19:14 Blood Pressure 145/69 01/23/20 19:01 Pulse Oximetry (%) 98 01/23/20 19:01 Weakness - Lab Data Lab results reviewed: Yes I reviewed the patient's lab results. - Radiology Data Radiology results reviewed: Yes I reviewed the patient's radiology results. Disposition Pt seen by [facility]TER/PA only: Yes Clinical Impression: COPD exacerbation, Hypoxia, Confusion Disposition: Xfer As Inpt ([facility]) Condition: Serious Referrals: Yola Paul MD [Primary Care Provider] - Time of Disposition: 19:44
[2020-01-23 19:57] LABS: Appearance,Urine HAZY; Bacteria,Urine 0 /hpf (0); Bilirubin,Urine NEG (NEG); Color,Urine YELLOW; Culture Indicated,Urine NO; Glucose,Urine (UA) >=500 mg/dL (NEG); Ketones,Urine NEG (NEG); Leukocyte Esterase,Urine NEG /uL (NEG); Mucus,Urine FEW /hpf (0); Nitrate,Urine NEG (NEG); Other Crystals,Urine FEW /hpf (0); Protein,Urine NEG (NEG); Specific Gravity,Urine 1.012 (1.000-1.035); Urine Amorphous Crystals FEW /hpf (0); Urine Blood 0.03 mg/dL (<0.03); Urine RBC < 1 /hpf (0-1); Urine Squamous Epithelial Cell < 1 /hpf (0-4); Urine WBC < 1 /hpf (0-4); Urobilinogen,Urine NEG (NEG)
[2020-01-23 20:12] LABS: proBNP 329.3 pg/ml (0-125)
--- NOTE | 2020-01-23 20:14 | Cat Scan Report ---
CLINICAL INFORMATION: Dizziness COMPARISON: None. TECHNIQUE: 2.5 mm helical slices were obtained in the skull base to vertex. Following reconstruction, axial reformatted images were reviewed at bone and parenchymal windows. The exam was performed using radiation dose optimization techniques including, but not limited to, automated exposure control, adjustment of the mA and/or kV according to patient size and use of iterative reconstruction technique. FINDINGS: The ventricles, sulci, fissures, and cisterns are symmetrically enlarged compatible with mild age-related atrophy. No extra-axial fluid collections are identified. Patchy chronic ischemic changes in the cerebral white matter expected range are unchanged. There are two remote lacunar infarcts in the deep cerebral white matter and inferior right cerebellum. There is is no evidence of hemorrhage, mass effect, or edema. Bone windows show no osseous abnormality. IMPRESSION: Mild atrophy with chronic ischemic changes in the knee cerebral white matter and scattered remote lacunar infarcts in the basal ganglia inferior cerebellum. No acute findings Interpreted and Authenticated by: Deepak Sherwood 01/23/20
[2020-01-23] MEDS ORDERED: ACETAMINOPHEN 325 MG TABLET PO PRN (21:15)
[2020-01-23] MEDS ORDERED: ONDANSETRON 4 MG ODT TABLET SL PRN (21:15)
[2020-01-23] MEDS ORDERED: POLYETHYLENE GLYCOL 3350 17 GM PACKET PO PRN (21:15)
[2020-01-23] MEDS ORDERED: POTASSIUM CHLORIDE 20 MEQ PACKET PO PRN (21:15)
[2020-01-23] MEDS ORDERED: MELATONIN 3 MG TABLET PO PRN (21:15)
[2020-01-23] MEDS ORDERED: BISACODYL 10 MG SUPP.RECT PR PRN (21:15)
[2020-01-23] MEDS ORDERED: ONDANSETRON 4 MG/2 ML VIAL IV PRN (21:15)
[2020-01-23] MEDS ORDERED: MAGNESIUM SULFATE 2 GM/50 ML BAG IV PRN (21:15)
[2020-01-23] MEDS ORDERED: guaiFENesin/CODEINE 10 ML UDC PO PRN (21:15)
[2020-01-23] MEDS: 0.9 % SODIUM CHLORIDE 1,000 ML IV SCH (21:53)
--- NOTE | 2020-01-23 22:18 | Internal Med History&Physical ---
Medical - H&P: HPI Patient information: Note initiated : 01/23/20 at 10:14 pm Service Date, if different from initiated Date: [] Patient: Trevor Garcia 69 y/o F admitted on 01/23/20 for weakness. Chief Complaint: [] Chief complaint: Shortness of breath and confusion and fall History of present illness: Ms. Garcia is a 69 year old F with history of advanced COPD with CO2 re tention using trilogy BiPAP, RENE who presents to the ER with recurrent falls/shortness of breath, cough and increasing confusion. She was seen early this morning with generalized weakness and severe exacerbation was discharged after initial treatment in the ER. However she fell at home and subsequently EMS was summoned. During evaluation she was found to be very weak and confused. Initial blood gases 7.28/96. Patient was promptly started on noninvasive ventilatio for hypercapnic respiratory failure . CT head unremarkable. Blood work at baseline with creatinine 1.2 however elevated blood sugars at 335. Subsequently hospitalist service was consulted for admission. At the time of evaluation patient is confused. She is accompanied with her Tim. She was able to provide answers to leading questions and partial review of system but most of the history was obtained from review of medical records, ER physician and . Patient has had a gradual functional decline over the last few days. She endorses low-grade fever, cough, but denies sick contacts or travel outside [place]. She denies changes in medications. 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 and the effects of nonsteroidal anti-inflammatories Hypoxemia (Chronic) Anxiety (Chronic) Bilateral hand pain (Chronic) Hypercholesterolemia (Chronic) Hypertension (Chronic) End stage COPD (Chronic) Oxygen dependent (Chronic) Pneumonia (Acute) Respiratory failure (Acute) Sepsis (Acute) Hypercapnic respiratory failure (Acute) Acute respiratory failure (Acute) Acute respiratory failure with hypoxia and hypercapnia (Acute) Bronchitis (Acute) COPD exacerbation (Acute) Acute anxiety (Acute) Excessive cerumen in left ear canal (Acute) COPD exacerbation (Acute) Community acquired pneumonia (Acute) Gastroenteritis (Acute) Chronic kidney disease, stage IV (severe) (Chronic) Anemia (Chronic) Hypertensive renal disease (Chronic) CKD (chronic kidney disease), stage III (Chronic) HTN and minimal proteinuria Actinic keratosis (Chronic) Osteopenia (Chronic) Unspecified urinary incontinence (Chronic) Anxiety state (Chronic) Situational depression (Chronic) Right arm pain (Chronic) Pain in hand (Chronic) Bilateral Accidental fall (Chronic) Recurrent GERD (gastroesophageal reflux disease) (Chronic) Diabetes mellitus, type II (Chronic) given her egfr metformin was stopped started on glipizide adverse effects discussed advised to schedule visit with Dr Paul for further monitoring and managemen t of CKD Hypertension, essential (Chronic) Not at goal, given the extent of her pulmonary disease I would avoid beta- blockers Allergic rhinitis (Chronic) COPD (chronic obstructive pulmonary disease) (Chronic) Severe Glossitis (Chronic) Hemangioma (Chronic) Keratosis, seborrheic (Chronic) Lentigo (Chronic) Benign Benign neoplasm of skin (Chronic) Acquired skin tag (Chronic) Hyperkalemia (Chronic) Intermittent discussed low K diet ct furosemide which will help with kaliuresis will follow Acute infective cystitis (Resolved) Acute renal failure (ARF) (Resolved) Surgical History History of cholecystectomy (Acute) Family History Mother Pulmonary emphysema, Onset Age: 48 Unknown Type 2 diabetes mellitus Osteoporosis Malignant neoplasm Social History marital status: occupational status: retired smoking status: Former smoker quit date: 11/02/99 smoking status stop date: 07/12/99 alcohol intake frequency: former alcohol drinker substance use type: does not use Medical - H&P: Meds Home Medications Medication Instructions Recorded Confirmed Type Ipratropium/Albuterol [Duoneb] 3 ml NEB Q6H 06/06/15 01/23/20 History PARoxetine HCL [Paxil] 40 mg PO DAILY 06/06/15 01/23/20 History Pantoprazole [Protonix] 40 mg PO QAMAC 06/06/15 01/23/20 History traZODone HCL [Desyrel] 50 mg PO HS 06/06/15 01/23/20 History cyanocobalamin (vitamin B-12) 5,000 mcg PO QDAY 07/03/16 01/23/20 History 1,000 mcg tablet diphenhydramine 25 1 tab PO QHS PRN 07/08/17 01/23/20 History mg-acetaminophen 500 mg tablet guaiFENesin [Mucinex] 600 mg PO BID 08/02/17 01/23/20 History insulin glargine U-300 conc 300 18 unit SUB-Q QDAY ml 11/11/17 01/23/20 History unit/mL (1.5 mL) subcutaneous pen tramadol 50 mg tablet 50 mg PO DAILY PRN 06/19/18 01/23/20 History amlodipine 5 mg tablet 5 mg PO DAILY tab 06/29/18 01/23/20 History clonazepam 0.5 mg tablet 0.5 mg PO QDAY tab 12/07/18 01/23/20 History Ventolin HFA 90 mcg/actuation 2 puff INHALATION Q6H PRN #18 g NS 02/17/19 01/23/20 Rx aerosol inhaler alendronate 70 mg tablet 70 mg PO QWEEK 02/17/19 01/23/20 History furosemide 20 mg tablet 20 mg PO DAILY #90 tab 12/07/19 01/23/20 Rx albuterol sulfate 90 mcg/actuation 2 puff INHALATION Q6H PRN #18 g 12/14/19 01/23/20 Rx aerosol inhaler budesonide 0.25 mg/2 mL suspension 2 ml INHALATION BID #120 ml 12/14/19 01/23/20 Rx for nebulization cholecalciferol (vitamin D3) 25,000 unit PO QDAY cap 12/14/19 01/23/20 History 25,000 unit capsule ferrous sulfate 325 mg (65 mg 325 mg PO QDAY 12/14/19 01/23/20 History iron) tablet formoterol fumarate 20 mcg/2 mL 2 ml INHALATION BID #120 ml 12/14/19 01/23/20 Rx solution for nebulization loratadine 10 mg capsule 10 mg PO QDAY 12/14/19 01/23/20 History prednisone 10 mg tablet 10 mg PO QDAY 12/14/19 01/23/20 History ciprofloxacin HCl 750 mg tablet 750 mg PO BID 10 Days #20 tab 01/18/20 01/23/20 Rx Atorvastatin [Lipitor] 20 mg PO HS 01/23/20 01/23/20 History Azithromycin 250 mg PO DAILY #6 tab 01/23/20 Rx Allergies Allergy/AdvReac Type Severity Reaction Status Date / Time hydrocodone Allergy Severe Swelling Verified 01/23/20 18:45 Amoxicillin AdvReac Mild Gastrointestinal Verified 01/23/20 18:45 Upset doxycycline AdvReac Mild bloating Verified 01/23/20 18:45 meperidine [From Demerol] AdvReac Mild Vomiting Verified 01/23/20 18:45 narcotics AdvReac respiratory Uncoded 01/13/20 08:48 depression Medical - H&P: Exam - Constitutional Vitals: Temp Pulse Resp BP Pulse Ox 99.1 F H 88 23 H 145/69 95 01/23/20 18:30 01/23/20 20:33 01/23/20 20:33 01/23/20 19:01 01/23/20 20:33 General appearance: morbidly obese Exam: Intermittently confused and drowsy Currently on BiPAP Head normocephalic Oral cavity dry No ear nose discharge Short neck Eye movement symmetrical Obese but nondistended nontender abdomen Unable to talk in full sentences but symmetrical breath sounds, wheezing noted Regular rhythm no murmur Lower extremity no cyanosis clubbing, minimal edema Skin no suspicious lesion No joint swelling erythema Psych anxious but cooperative Neuro higher function could not performed Medical - H&P: Reslt - Labs CBC & Chem 7: 01/24/20 04:45 01/24/20 04:45 Labs: Urine 01/23/20 Range/Units 19:29 Urine Color Yellow Urine Appearance Hazy Urine pH 5.0 (5.0-9.0) Ur Specific [place] 1.012 (1.000-1.035) Urine Protein Neg (NEG) mg/dL Urine Glucose (UA) >=500 A (NEG) mg/dL Medical - H&P: A/P (1) Acute hypercapnic respiratory failure Current visit: Yes Status: Acute * Acute hypercapnic respiratory failure-ABG 7.28/96. Initiate noninvasive ventilation and titrate his blood gases. * Acute mental status change secondary to hypercapnia. Continue noninvasive mechanical ventilation. * History of obstructive sleep apnea/COPD -initiate bronchodilators/BiPAP * Insulin-dependent diabetes continue basal prandial insulin * H/o anemia stable * GERD continue PPI * Chronic kidney disease stage III stable. Monitor renal function * History of hypertension restart home medications including amlodipine * Hyperlipidemia continue statin * Anxiety disorder continue clonazepam * DNR * Prophylaxis heparin Plan * Inpatient ICU admit, ApacheII score 16 * Serial blood gas/chest imaging * Noninvasive mechanical ventilation * Pre-existing mental condition management home meds * PT OT nutrition support * Discharge planning Critical care time spent in excess of 35 minutes in addition to time spent on history and physical
[2020-01-23] MEDS: IPRATROPIUM/ALBUTEROL 3 ML AMPUL.NEB NEB PRN (22:25)
[2020-01-23] MEDS: BUDESONIDE 0.5 MG/2 ML AMPUL.NEB NEB SCH (22:25)
[2020-01-23] MEDS: methylPREDNISolone SOD SUCC 125 MG/2 ML VIAL IV SCH (22:28)
[2020-01-23] MEDS: HEPARIN 5,000 UNIT/ML VIAL SQ SCH (22:28)
[2020-01-23] MEDS: 0.9 % SODIUM CHLORIDE 10 ML SYRINGE IV SCH (22:29)
[2020-01-23] MEDS: DOCUSATE SODIUM 100 MG CAPSULE PO SCH (22:30)
[2020-01-23] MEDS: SENNOSIDES/DOCUSATE SODIUM 1 TAB TABLET PO SCH (22:30)
[2020-01-24] MEDS: 0.9 % SODIUM CHLORIDE 10 ML SYRINGE IV SCH ×4 (05:38→22:10)
[2020-01-24 05:46] LABS: Hematocrit 37.6 % (34.1-44.9); Hemoglobin 11.3 g/dL (11.2-15.7); Mean Cell Volume 98.2 fL (80.0-100.0); Mean Corpuscular HGB Conc 30.1 g/dL (31.0-36.0); Mean Platelet Volume 11.9 fL (7.4-10.4); Platelet Count 195 K/mcL (140-440); RBC 3.83 M/mcL (3.59-5.38); Red Cell Distribution Width 12.8 % (11.5-14.5); WBC 7.2 K/mcL (4.50-11.00)
[2020-01-24 06:19] LABS: ALT/SGPT 16 U/l (0-40); AST/SGOT 15 U/l (0-37); Albumin 3.3 gm/dL (3.2-5.2); Albumin/Globulin Ratio 0.9 (1.0-2.3); Alkaline Phosphatase 113 U/L (39-117); Bilirubin,Direct < 0.2 mg/dL (0.0-0.3); Bilirubin,Total 0.2 mg/dL (0.0-1.0); Blood Urea Nitrogen 16 mg/dl (8-23); Calcium 8.8 mg/dl (8.6-10.4); Carbon Dioxide 37 mmol/L (22-30); Globulin 3.5 gm/dL (2.2-3.7); Glomerular Filtration Rate 42; Glucose 377 mg/dL (70-105); Lactate Dehydrogenase 239 U/L (94-250); Triglycerides 139 mg/dl (<150); Uric Acid 4.3 mg/dL (2.5-8.0)
[2020-01-24 06:20] LABS: Chloride 90 mmol/L (96-108)
[2020-01-24 06:57] LABS: Band Neutrophils % 2 % (0-10); Basophilic Stippling FEW (NONE SEEN); Lymphocytes % 4 % (15-49); Monocytes % (Manual) 1 % (1-12); Platelet Estimate NORMAL (NORMAL); RBC Morphology ABNORMAL (NORMAL); Segmented Neutrophils % 93 % (38-78)
[2020-01-24] MEDS: IPRATROPIUM/ALBUTEROL 3 ML AMPUL.NEB NEB PRN (08:56)
[2020-01-24] MEDS: BUDESONIDE 0.5 MG/2 ML AMPUL.NEB NEB SCH ×2 (08:56→19:55)
[2020-01-24] MEDS: methylPREDNISolone SOD SUCC 125 MG/2 ML VIAL IV SCH ×2 (10:13→20:09)
[2020-01-24] MEDS: MULTIVIT,THER IRON,CA,FA & MIN 1 TABLET PO SCH (10:13)
[2020-01-24] MEDS: DOCUSATE SODIUM 100 MG CAPSULE PO SCH ×2 (10:13→20:08)
[2020-01-24] MEDS: HEPARIN 5,000 UNIT/ML VIAL SQ SCH ×2 (10:14→20:07)
[2020-01-24] MEDS ORDERED: IPRATROPIUM/ALBUTEROL 3 ML AMPUL.NEB NEB SCH ×2 (10:45→13:00)
[2020-01-24] MEDS ORDERED: traMADol 50 MG TABLET PO PRN (10:45)
--- NOTE | 2020-01-24 10:46 | Internal Med Progress Note ---
Medical - PN: Subj Patient information: Note initiated : 01/24/20 at 10:43 am Service Date, if different from initiated Date: [] Patient: Trevor Garcia 69 y/o F admitted on 01/23/20 for weakness. Chief Complaint: [] Interval history: Ms. Garcia is a 69 year old F with history of advanced COPD with CO2 retention using trilogy BiPAP, RENE who presents to the ER with recurrent falls/shortness of breath, cough and increasing confusion. She was seen early this morning with generalized weakness and severe exacerbation was discharged after initial treatment in the ER. However she fell at home and subsequently EMS was summoned. During evaluation she was found to be very weak and confused. Initial blood gases 7.28/96. Patient was promptly started on noninvasive ventilatio for hypercapnic respiratory failure . CT head unremarkable. Blood work at baseline with creatinine 1.2 however elevated blood sugars at 335. Subsequently hospitalist service was consulted for admission. At the time of evaluation patient is confused. She is accompanied with her Tim. She was able to provide answers to leading questions and partial review of system but most of the history was obtained from review of medical records, ER physician and . Patient has had a gradual functional decline over the last few days. She endorses low-grade fever, cough, but denies sick contacts or travel outside [place]. She denies changes in medications. 01/23-patient doing better on noninvasive ventilation. More alert lucid and respond to commands this morning. Labs and hemodynamics stable. Repeat ABG pending. No family at bedside. No telemetry events. - Constitutional Vitals: Vital Signs Temp Pulse Resp BP Pulse Ox 97.1 F 80 16 128/65 96 01/24/20 07:01 01/24/20 09:01 01/24/20 09:01 01/24/20 09:01 01/24/20 09:01 Period Temp Pulse Resp BP Sys/Bailey Pulse Ox Last 24 Hr 97.1 F-99.1 F 70-100 14-30 89-166/44-134 90-100 Intake and Output 01/23/20 01/24/20 01/24/20 21:59 05:59 13:59 Output Total 1 2 Balance -1 -2 Weight 181 lb Intake & Output: Intake & Output 01/23/20 01/24/20 01/24/20 21:59 05:59 13:59 Output Total 1 2 Balance -1 -2 Weight 181 lb Output: # of times incontinent of urine 1 2 Other: Urine Appearance Fem Cath Cloudy Urine Color Fem Cath Pale # Voids 1 General appearance: morbidly obese Exam: Alert On noninvasive ventilation Short neck Diminished breath sounds bases No telemetry events Medical - PN: Obj Da - Labs CBC & Chem 7: 01/24/20 04:45 01/24/20 04:45 Labs: Abnormal Lab Results 01/24/20 01/24/20 01/23/20 04:45 04:45 19:29 MCHC 30.1 L MPV 11.9 H Seg Neutrophils % 93 H Lymphocytes % 4 L Basophilic Stippling Few A Chloride 90 L Carbon Dioxide 37 H Creatinine 1.3 H Glucose 377 H NT-Pro-B Natriuret Pep Albumin/Globulin Ratio 0.9 L Urine Glucose (UA) >=500 A Urine Occult Blood 0.03 A Other Crystals Few A Amorphous Crystals Few A 01/23/20 19:10 MCHC MPV Seg Neutrophils % Lymphocytes % Basophilic Stippling Chloride Carbon Dioxide Creatinine Glucose NT-Pro-B Natriuret Pep 329.3 H Albumin/Globulin Ratio Urine Glucose (UA) Urine Occult Blood Other Crystals Amorphous Crystals Meds: Medications Acetaminophen (Tylenol) 650 mg PO Q4-6HP PRN; Protocol PRN Reason: Per Pain Protocol/Fever > 101 Albuterol/Ipratropium (Duoneb) 3 ml NEB Q4HP PRN PRN Reason: Shortness Of Breath Last Admin: 01/24/20 08:56 Dose: 3 ml Documented by: Bisacodyl (Dulcolax) 10 mg W[place] Q2-3DAYS PRN PRN Reason: Constipation Budesonide (Pulmicort) 0.5 mg NEB Q12 DAIMON Last Admin: 01/24/20 08:56 Dose: 0.5 mg Documented by: Docusate Sodium (Colace) 100 mg PO BID [facility] Last Admin: 01/24/20 10:13 Dose: 100 mg Documented by: Guaifenesin/Codeine Phosphate (Robitussin Ac) 10 ml PO Q4HP PRN PRN Reason: Cough Heparin Sodium (Porcine) (Heparin) 5,000 unit SQ Q12 [facility] Last Admin: 01/24/20 10:14 Dose: 5,000 unit Documented by: Sodium Chloride (Sodium Chloride 0.9%) 1,000 mls @ 50 mls/hr IV .Q20H [facility] Stop: 01/26/20 09:14 Last Admin: 01/23/20 21:53 Dose: 50 mls/hr Documented by: Magnesium Sulfate (Magnesium Sulfate) 2 gm in 50 mls @ 50 mls/hr IV UD PRN PRN Reason: MG = or < 1.7 Iron Carb/Multivit/[place]/Folic Acid (Multivitamin W/Minerals) 1 tab PO DAILY [facility] Last Admin: 01/24/20 10:13 Dose: 1 tab Documented by: Melatonin (Melatonin 3mg Tablet) 3 mg PO HSP PRN PRN Reason: Insomnia Methylprednisolone Sodium Succinate (Solu-Medrol) 60 mg IV Q12 [facility] Last Admin: 01/24/20 10:13 Dose: 60 mg Documented by: Ondansetron HCl (Zofran Odt) 4 mg SL Q4-6HP PRN; Protocol PRN Reason: Nausea And Vomiting Ondansetron HCl (Zofran) 4 mg IV Q4-6HP PRN; Protocol PRN Reason: Nausea And Vomiting Polyethylene Glycol (Miralax) 17 gm PO DAILYP PRN PRN Reason: Constipation Potassium Chloride (Klor-Con) 40 meq PO DAILYP PRN PRN Reason: K+ < 3.5 Senna/Docusate Sodium (Senna Plus Tablet) 1 tab PO HS [facility] Last Admin: 01/23/20 22:30 Dose: Not Given Documented by: Sodium Chloride (Saline Flush) 10 ml IV Q8 [facility] Last Admin: 01/24/20 05:38 Dose: Not Given Documented by: Medical - PN: A/P - Time Spent With Patient Total time spent is greater than 50% in coordination of care (as documented) at patient's floor/unit and/or counseling patient: Greater than 35 minutes (Critical care time) (1) Acute hypercapnic respiratory failure Status: Acute Assessment and plan: * Acute hypercapnic respiratory failure-ABG 7.28/96. Clinically improving. Await serial blood gas. * Acute mental status change secondary to hypercapnia. Clinically improved with NIPPV * History of obstructive sleep apnea/COPD -clinically improving with bronchodilators/steroids * Insulin-dependent diabetes continue basal prandial insulin * H/o anemia stable * GERD continue PPI * Chronic kidney disease stage III stable. Monitor renal function * History of hypertension restart home medications including amlodipine * Hyperlipidemia continue statin * Anxiety disorder continue clonazepam * DNR * Prophylaxis heparin Plan * Repeat ABG/chest imaging * Continue noninvasive ventilation * Resume pre-existing medical condition management on home meds * PT OT nutrition support * Discharge planning likely SNF Current Visit: Yes
[2020-01-24] MEDS: IPRATROPIUM/ALBUTEROL 3 ML AMPUL.NEB NEB SCH ×2 (13:36→19:55)
[2020-01-24] MEDS: 0.9 % SODIUM CHLORIDE 1,000 ML IV SCH (16:10)
[2020-01-24] MEDS ORDERED: DEXTROSE 31 GM ORAL.SUSP PO PRN (17:13)
[2020-01-24] MEDS ORDERED: DEXTROSE 50% 50 ML VIAL IV PRN (17:13)
[2020-01-24] MEDS ORDERED: sitaGLIPtin 100 MG TABLET PO ONE (17:18)
[2020-01-24] MEDS: INSULIN LISPRO 1 UNIT/0.01 ML UNIT SQ SCH ×2 (17:28→22:10)
[2020-01-24] MEDS ORDERED: INSULIN GLARGINE, HUMAN 1 UNIT/0.01 ML SQ ONE (17:30)
[2020-01-24] MEDS: ATORVASTATIN 20 MG TABLET PO SCH (20:08)
[2020-01-24] MEDS: SENNOSIDES/DOCUSATE SODIUM 1 TAB TABLET PO SCH (20:08)
[2020-01-24] MEDS: traZODone HCL 50 MG TABLET PO SCH (20:08)
[2020-01-24] MEDS: guaiFENesin 600 MG TAB.SR.12H PO SCH (20:08)
[2020-01-25] MEDS: IPRATROPIUM/ALBUTEROL 3 ML AMPUL.NEB NEB SCH ×4 (01:27→19:23)
[2020-01-25] MEDS: 0.9 % SODIUM CHLORIDE 10 ML SYRINGE IV SCH ×3 (05:43→21:01)
[2020-01-25 06:28] LABS: Hematocrit 36.3 % (34.1-44.9); Hemoglobin 10.7 g/dL (11.2-15.7); Mean Corpuscular HGB Conc 29.5 g/dL (31.0-36.0); Mean Platelet Volume 12.5 fL (7.4-10.4); Platelet Count 178 K/mcL (140-440); RBC 3.63 M/mcL (3.59-5.38); Red Cell Distribution Width 13.2 % (11.5-14.5)
[2020-01-25 06:52] LABS: Bilirubin,Direct < 0.2 mg/dL (0.0-0.3)
[2020-01-25 07:09] LABS: ALT/SGPT 15 U/l (0-40); AST/SGOT 15 U/l (0-37); Albumin 3.5 gm/dL (3.2-5.2); Albumin/Globulin Ratio 1.2 (1.0-2.3); Alkaline Phosphatase 97 U/L (39-117); Bilirubin,Total 0.2 mg/dL (0.0-1.0); Blood Urea Nitrogen 24 mg/dl (8-23); Calcium 8.3 mg/dl (8.6-10.4); Carbon Dioxide 37 mmol/L (22-30); Chloride 95 mmol/L (96-108); Glomerular Filtration Rate 51; Glucose 333 mg/dL (70-105); Lactate Dehydrogenase 218 U/L (94-250); Phosphorous 2.6 mg/dL (2.7-4.5); Triglycerides 192 mg/dl (<150); Uric Acid 4.3 mg/dL (2.5-8.0)
[2020-01-25] MEDS: BUDESONIDE 0.5 MG/2 ML AMPUL.NEB NEB SCH ×2 (07:11→19:23)
[2020-01-25] MEDS: PANTOPRAZOLE 40 MG TABLET PO SCH (07:33)
[2020-01-25] MEDS: INSULIN LISPRO 1 UNIT/0.01 ML UNIT SQ SCH ×5 (07:41→21:00)
[2020-01-25 09:06] LABS: Band Neutrophils % 2 % (0-10); Lymphocytes % 8 % (15-49); Platelet Estimate NORMAL (NORMAL); RBC Morphology NORMAL (NORMAL); Segmented Neutrophils % 90 % (38-78)
[2020-01-25] MEDS: HEPARIN 5,000 UNIT/ML VIAL SQ SCH ×2 (09:12→21:01)
[2020-01-25] MEDS: clonazePAM 0.5 MG TABLET PO SCH (09:12)
[2020-01-25] MEDS: MULTIVIT,THER IRON,CA,FA & MIN 1 TABLET PO SCH (09:12)
[2020-01-25] MEDS: FUROSEMIDE 20 MG TABLET PO SCH (09:12)
[2020-01-25] MEDS: guaiFENesin 600 MG TAB.SR.12H PO SCH ×2 (09:12→21:00)
[2020-01-25] MEDS: methylPREDNISolone SOD SUCC 125 MG/2 ML VIAL IV SCH ×2 (09:12→21:01)
[2020-01-25] MEDS: amLODIPine 5 MG TABLET PO SCH (09:12)
[2020-01-25] MEDS: INSULIN GLARGINE, HUMAN 1 UNIT/0.01 ML SQ SCH (09:13)
[2020-01-25] MEDS: sitaGLIPtin 100 MG TABLET PO SCH (09:19)
[2020-01-25] MEDS: LORATADINE 10 MG TABLET PO SCH (09:19)
[2020-01-25] MEDS: PARoxetine 20 MG TABLET PO SCH (09:19)
[2020-01-25] MEDS: DOCUSATE SODIUM 100 MG CAPSULE PO SCH ×2 (09:19→20:57)
--- NOTE | 2020-01-25 09:28 | XRay Report ---
HISTORY: Follow-up right upper lobe nodule FINDINGS: There are multiple overlying artifacts including respirator tubing and EKG wires. The cavitary nodule seen in the right upper lobe on the chest CT done on 01/04/20 cannot be visualized in today's study due to the overlying artifacts. There is mild parenchymal scarring in both lung bases. No new infiltrate is developed. The heart size is normal. No pleural effusion is present. There are old fractures in the proximal shaft of the right humerus and a couple lateral right ribs. IMPRESSION: Limited exam due to overlying artifacts. Previously seen right upper lobe nodule cannot be evaluated at this time Mild chronic fibrosis in both lung bases Interpreted and Authenticated by: Anant Nguyen 01/25/20
[2020-01-25] MEDS ORDERED: FLU VACC QS2019-20(6MOS UP)/PF 60 MCG/0.5 ML SYRINGE IM ONE (10:00)
[2020-01-25] MEDS: 0.9 % SODIUM CHLORIDE 1,000 ML IV SCH (13:11)
--- NOTE | 2020-01-25 13:30 | Internal Med Progress Note ---
Medical - PN: Subj Patient information: Note initiated : 01/25/20 at 1:27 pm Service Date, if different from initiated Date: [] Patient: Trevor Garcia 69 y/o F admitted on 01/23/20 for weakness. Chief Complaint: [] Interval history: Ms. Garcia is a 69 year old F with history of advanced COPD with CO2 retention using trilogy BiPAP, RENE who presents to the ER with recurrent falls/shortness of breath, cough and increasing confusion. She was seen early this morning with generalized weakness and severe exacerbation was discharged after initial treatment in the ER. However she fell at home and subsequently EMS was summoned. During evaluation she was found to be very weak and confused. Initial blood gases 7.28/96. Patient was promptly started on noninvasive ventilatio for hypercapnic respiratory failure . CT head unremarkable. Blood work at baseline with creatinine 1.2 however elevated blood sugars at 335. Subsequently hospitalist service was consulted for admission. At the time of evaluation patient is confused. She is accompanied with her Tim. She was able to provide answers to leading questions and partial review of system but most of the history was obtained from review of medical records, ER physician and . Patient has had a gradual functional decline over the last few days. She endorses low-grade fever, cough, but denies sick contacts or travel outside [place]. She denies changes in medications. 01/23-patient doing better on noninvasive ventilation. More alert lucid and respond to commands this morning. Labs and hemodynamics stable. Repeat ABG pending. No family at bedside. No telemetry events. 01/24-patient doing well. More alert lucid. Overnight on BiPAP. Wean BiPAP today. Afebrile. No telemetry events. Continues oxygen. Improved blood sugars. Viral respiratory panel negative. Coronavirus pending - Constitutional Vitals: Vital Signs Temp Pulse Resp BP Pulse Ox 98.2 F 72 16 132/89 96 01/25/20 12:00 01/25/20 12:00 01/25/20 12:01/25/20 12:01/25/20 12:00 Period Temp Pulse Resp BP Sys/Bailey Pulse Ox Last 24 Hr 97.3 F-99.3 F 71-99 16-26 106-142/48-89 93-100 Intake and Output 01/24/20 01/25/2001/24/20 21:59 05:59 13:59 Intake Total 8154 871 7458 Output Total 2 1 100 Balance 7635 154 3461 Weight 181 lb 14.4 oz Intake & Output: Intake & Output 01/24/20 01/25/20 01/25/20 21:59 05:59 13:59 Intake Total 1476 602 0803 Output Total 2 1 100 Balance 7065 858 9042 Weight 181 lb 14.4 oz Intake: IV 913 1000 Sodium Chloride 0.9% 1,000 ml @ 913 1000 50 mls/hr IV .Q20H [facility] Rx#: [id number] Oral 240 180 240 Output: Void Amount 100 # of times incontinent of urine 2 1 General appearance: no acute distress Exam: Alert responding commands Trial of BiPAP Morbidly obese No telemetry events Medical - PN: Obj Da - Labs CBC & Chem 7: 01/25/20 05:12 01/25/20 05:11 Labs: Abnormal Lab Results 01/25/20 01/25/20 01/24/20 05:12 05:11 04:45 Hgb 10.7 L MCHC 29.5 L MPV 12.5 H Seg Neutrophils % 90 H Lymphocytes % 8 L Basophilic Stippling Chloride 95 L 90 L Carbon Dioxide 37 H 37 H BUN 24 H Creatinine 1.3 H Glucose 333 H 377 H Calcium 8.3 L Phosphorus 2.6 L Magnesium 2.7 H NT-Pro-B Natriuret Pep Albumin/Globulin Ratio 0.9 L Triglycerides 192 H Urine Glucose (UA) Urine Occult Blood Other Crystals Amorphous Crystals 01/24/20 01/23/20 01/23/20 04:45 19:29 19:10 Hgb MCHC 30.1 L MPV 11.9 H Seg Neutrophils % 93 H Lymphocytes % 4 L Basophilic Stippling Few A Chloride Carbon Dioxide BUN Creatinine Glucose Calcium Phosphorus Magnesium NT-Pro-B Natriuret Pep 329.3 H Albumin/Globulin Ratio Triglycerides Urine Glucose (UA) >=500 A Urine Occult Blood 0.03 A Other Crystals Few A Amorphous Crystals Few A Meds: Medications Acetaminophen (Tylenol) 650 mg PO Q4-6HP PRN; Protocol PRN Reason: Per Pain Protocol/Fever > 101 Albuterol/Ipratropium (Duoneb) 3 ml NEB Q4HP PRN PRN Reason: Shortness Of Breath Last Admin: 01/24/20 08:56 Dose: 3 ml Documented by: Albuterol/Ipratropium (Duoneb) 3 ml NEB Q6HRT [facility] Last Admin: 01/25/20 07:11 Dose: 3 ml Documented by: Amlodipine Besylate (Norvasc) 5 mg PO DAILY [facility] Last Admin: 01/25/20 09:12 Dose: 5 mg Documented by: Atorvastatin Calcium (Lipitor) 20 mg PO HS [facility] Last Admin: 01/24/20 20:08 Dose: 20 mg Documented by: Bisacodyl (Dulcolax) 10 mg W[place] Q2-3DAYS PRN PRN Reason: Constipation Budesonide (Pulmicort) 0.5 mg NEB Q12 [facility] Last Admin: 01/25/20 07:11 Dose: 0.5 mg Documented by: Clonazepam (Klonopin) 0.5 mg PO QDAY [facility] Last Admin: 01/25/20 09:12 Dose: 0.5 mg Documented by: Dextrose (Dextrose 50%) 0 ml IV UD PRN PRN Reason: Hypoglycemia Diagnostic Test (Pha) (Accu-Chek) 1 each FS ACHS [facility] Last Admin: 01/25/20 11:45 Dose: 1 each Documented by: Docusate Sodium (Colace) 100 mg PO BID [facility] Last Admin: 01/25/20 09:19 Dose: 100 mg Documented by: Furosemide (Lasix) 20 mg PO DAILY [facility] Last Admin: 01/25/20 09:12 Dose: 20 mg Documented by: Glucose (Insta-Glucose) 15 gm PO PRN PRN PRN Reason: Hypoglycemia Guaifenesin (Mucinex) 600 mg PO BID [facility] Last Admin: 01/25/20 09:12 Dose: 600 mg Documented by: Guaifenesin/Codeine Phosphate (Robitussin Ac) 10 ml PO Q4HP PRN PRN Reason: Cough Heparin Sodium (Porcine) (Heparin) 5,000 unit SQ Q12 [facility] Last Admin: 01/25/20 09:12 Dose: 5,000 unit Documented by: Sodium Chloride (Sodium Chloride 0.9%) 1,000 mls @ 50 mls/hr IV .Q20H [facility] Stop: 01/26/20 09:14 Last Admin: 01/25/20 13:11 Dose: 50 mls/hr Documented by: Magnesium Sulfate (Magnesium Sulfate) 2 gm in 50 mls @ 50 mls/hr IV UD PRN PRN Reason: MG = or < 1.7 Insulin Glargine (Lantus) 20 unit SQ QDAY [facility] Last Admin: 01/25/20 09:13 Dose: 20 unit Documented by: Insulin Human Lispro (Humalog) 0 unit SQ ACHS [facility]; Protocol Last Admin: 01/25/20 12:00 Dose: 3 unit Documented by: Iron Carb/Multivit/Nurses Aide/Folic Acid (Multivitamin W/Minerals) 1 tab PO DAILY [facility] Last Admin: 01/25/20 09:12 Dose: 1 tab Documented by: Loratadine (Claritin) 10 mg PO QDAY [facility] Last Admin: 01/25/20 09:19 Dose: 10 mg Documented by: Melatonin (Melatonin 3mg Tablet) 3 mg PO HSP PRN PRN Reason: Insomnia Methylprednisolone Sodium Succinate (Solu-Medrol) 60 mg IV Q12 [facility] Last Admin: 01/25/20 09:12 Dose: 60 mg Documented by: Ondansetron HCl (Zofran Odt) 4 mg SL Q4-6HP PRN; Protocol PRN Reason: Nausea And Vomiting Ondansetron HCl (Zofran) 4 mg IV Q4-6HP PRN; Protocol PRN Reason: Nausea And Vomiting Pantoprazole Sodium (Protonix) 40 mg PO QAMAC [facility] Last Admin: 01/25/20 07:33 Dose: 40 mg Documented by: Paroxetine HCl (Paxil) 40 mg PO DAILY [facility] Last Admin: 01/25/20 09:19 Dose: 40 mg Documented by: Polyethylene Glycol (Miralax) 17 gm PO DAILYP PRN PRN Reason: Constipation Potassium Chloride (Klor-Con) 40 meq PO DAILYP PRN PRN Reason: K+ < 3.5 Senna/Docusate Sodium (Senna Plus Tablet) 1 tab PO HS [facility] Last Admin: 01/24/20 20:08 Dose: 1 tab Documented by: Sitagliptin Phosphate (Januvia) 100 mg PO DAILY [facility] Last Admin: 01/25/20 09:19 Dose: 100 mg Documented by: Sodium Chloride (Saline Flush) 10 ml IV Q8 [facility] Last Admin: 01/25/20 05:43 Dose: Not Given Documented by: Tramadol HCl (Ultram) 50 mg PO DAILYP PRN PRN Reason: Pain Trazodone HCl (Desyrel) 50 mg PO HS [facility] Last Admin: 01/24/20 20:08 Dose: 50 mg Documented by: Medical - PN: A/P - Time Spent With Patient Total time spent is greater than 50% in coordination of care (as documented) at patient's floor/unit and/or counseling patient: Greater than 35 minutes (Critical care time) (1) Acute hypercapnic respiratory failure Status: Acute Assessment and plan: * Acute hypercapnic respiratory failure-clinically improving. Repeat ABG .. Wean noninvasive ventilation * Acute mental status change secondary to hypercapnia. Clinically resolved * History of obstructive sleep apnea/COPD -clinically improved with bronchodilators/steroids * Insulin-dependent diabetes continue basal prandial insulin. Blood sugars improving * H/o anemia stable * GERD continue PPI * Chronic kidney disease stage III stable. Monitor renal function * History of hypertension restart home medications including amlodipine * Hyperlipidemia continue statin * Anxiety disorder continue clonazepam * DNR * Prophylaxis heparin Plan * Wean BiPAP as tolerated * Bronchodilators/pulmonary toilet * Continue pre-existing medical condition management on home meds * PT OT nutrition support * Discharge planning Current Visit: Yes
[2020-01-25] MEDS ORDERED: BUDESONIDE 0.5 MG/2 ML AMPUL.NEB NEB ONE (19:27)
[2020-01-25] MEDS: SENNOSIDES/DOCUSATE SODIUM 1 TAB TABLET PO SCH (20:57)
[2020-01-25] MEDS: ATORVASTATIN 20 MG TABLET PO SCH (21:00)
[2020-01-25] MEDS: traZODone HCL 50 MG TABLET PO SCH (21:00)
[2020-01-26] MEDS: IPRATROPIUM/ALBUTEROL 3 ML AMPUL.NEB NEB SCH ×3 (01:27→12:35)
[2020-01-26] MEDS: 0.9 % SODIUM CHLORIDE 10 ML SYRINGE IV SCH ×2 (05:17→12:11)
[2020-01-26 06:27] LABS: Hematocrit 36.8 % (34.1-44.9); Hemoglobin 10.9 g/dL (11.2-15.7); Mean Cell Volume 101.1 fL (80.0-100.0); Mean Corpuscular HGB Conc 29.6 g/dL (31.0-36.0); Mean Platelet Volume 12.5 fL (7.4-10.4); Platelet Count 162 K/mcL (140-440); RBC 3.64 M/mcL (3.59-5.38); Red Cell Distribution Width 13.3 % (11.5-14.5); WBC 6.5 K/mcL (4.50-11.00)
[2020-01-26 07:04] LABS: ALT/SGPT 15 U/l (0-40); AST/SGOT 15 U/l (0-37); Albumin 3.1 gm/dL (3.2-5.2); Alkaline Phosphatase 87 U/L (39-117); Bilirubin,Direct < 0.2 mg/dL (0.0-0.3); Bilirubin,Total 0.2 mg/dL (0.0-1.0); Blood Urea Nitrogen 25 mg/dl (8-23); Calcium 8.1 mg/dl (8.6-10.4); Carbon Dioxide 35 mmol/L (22-30); Chloride 97 mmol/L (96-108); Glomerular Filtration Rate 51; Glucose 194 mg/dL (70-105); Lactate Dehydrogenase 209 U/L (94-250); Triglycerides 182 mg/dl (<150); Uric Acid 3.7 mg/dL (2.5-8.0)
[2020-01-26 07:08] LABS: Phosphorous 2.1 mg/dL (2.7-4.5)
[2020-01-26] MEDS: DOCUSATE SODIUM 100 MG CAPSULE PO SCH (07:09)
[2020-01-26 08:01] LABS: Band Neutrophils % 4 % (0-10); Lymphocytes % 3 % (15-49); Monocytes % (Manual) 2 % (1-12); Platelet Estimate NORMAL (NORMAL); RBC Morphology NORMAL (NORMAL); Segmented Neutrophils % 91 % (38-78)
[2020-01-26] MEDS: BUDESONIDE 0.5 MG/2 ML AMPUL.NEB NEB SCH (08:07)
[2020-01-26] MEDS: INSULIN LISPRO 1 UNIT/0.01 ML UNIT SQ SCH ×2 (10:13→12:10)
[2020-01-26] MEDS: INSULIN GLARGINE, HUMAN 1 UNIT/0.01 ML SQ SCH (10:13)
[2020-01-26] MEDS: PANTOPRAZOLE 40 MG TABLET PO SCH (10:14)
[2020-01-26] MEDS: guaiFENesin 600 MG TAB.SR.12H PO SCH (10:14)
[2020-01-26] MEDS: amLODIPine 5 MG TABLET PO SCH (10:14)
[2020-01-26] MEDS: clonazePAM 0.5 MG TABLET PO SCH (10:14)
[2020-01-26] MEDS: HEPARIN 5,000 UNIT/ML VIAL SQ SCH (10:14)
[2020-01-26] MEDS: FUROSEMIDE 20 MG TABLET PO SCH (10:14)
[2020-01-26] MEDS: MULTIVIT,THER IRON,CA,FA & MIN 1 TABLET PO SCH (10:14)
[2020-01-26] MEDS: methylPREDNISolone SOD SUCC 125 MG/2 ML VIAL IV SCH (10:14)
[2020-01-26] MEDS: sitaGLIPtin 100 MG TABLET PO SCH (10:20)
[2020-01-26] MEDS: PARoxetine 20 MG TABLET PO SCH (10:21)
[2020-01-26] MEDS: LORATADINE 10 MG TABLET PO SCH (10:21)
--- NOTE | 2020-01-26 10:52 | Discharge Summary ---
Medical - DS: Prov Patient information: Note initiated : 01/26/20 at 10:49 am Service Date, if different from initiated Date: [] Patient: Trevor Garcia 69 y/o F admitted on 01/23/20 for weakness. Chief Complaint: [] Date of admission: 01/23/20 20:58 Discharge date: 01/26/20 Primary care physician: Yola Paul Consults: 01/24/20 07:54 Consult to Physician [CONS] Routine Comment: Consulting Provider: Víctor Cordova Reason For Exam: Physician to Consult Medical - DS: Meds - Discharge Medications Active and Home Medications: Home Medications Ipratropium/Albuterol [Duoneb] 3 ml NEB Q6H 06/06/15 [History Confirmed 01/23/20 Last Taken 01/23/20] PARoxetine HCL [Paxil] 40 mg PO DAILY 06/06/15 [History Confirmed 01/24/20 Last Taken 01/23/20] Pantoprazole [Protonix] 40 mg PO QAMAC 06/06/15 [History Confirmed 01/23/20 Last Taken 01/23/20] traZODone HCL [Desyrel] 50 mg PO HS 06/06/15 [History Confirmed 01/23/20 Last Taken 01/22/20] cyanocobalamin (vitamin B-12) 1,000 mcg tablet 1,000 mcg PO QDAY 07/03/16 [History Confirmed 01/24/20 Last Taken 03/11/17] diphenhydramine 25 mg-acetaminophen 500 mg tablet 1 tab PO QHS PRN 07/08/17 [History Confirmed 01/23/20 Last Taken 01/22/20] guaiFENesin [Mucinex] 600 mg PO BID 08/02/17 [History Confirmed 01/23/20 Last Taken 01/23/20] insulin glargine U-300 conc 300 unit/mL (1.5 mL) subcutaneous pen 18 unit SUB-Q QDAY ml 11/11/17 [History Confirmed 01/24/20 Last Taken Unknown] tramadol 50 mg tablet 50 mg PO DAILY PRN 06/19/18 [History Confirmed 01/23/20 Last Taken 01/23/20] amlodipine 5 mg tablet 5 mg PO DAILY tab 06/29/18 [History Confirmed 01/23/20 Last Taken 01/23/20] clonazepam 0.5 mg tablet 0.5 mg PO QDAY tab 12/07/18 [History Confirmed 01/23/20 Last Taken 01/23/20] Ventolin HFA 90 mcg/actuation aerosol inhaler 2 puff INHALATION Q6H PRN #18 g NS 02/17/19 [Rx Confirmed 01/23/20 Last Taken 01/23/20] alendronate 70 mg tablet 70 mg PO QWEEK 02/17/19 [History Confirmed 01/23/20 Last Taken 01/23/20] furosemide 20 mg tablet 20 mg PO DAILY #90 tab 12/07/19 [Rx Confirmed 01/23/20 Last Taken 01/22/20] albuterol sulfate 90 mcg/actuation aerosol inhaler 2 puff INHALATION Q6H PRN #18 g 12/14/19 [Rx Confirmed 01/23/20 Last Taken 01/23/20] budesonide 0.25 mg/2 mL suspension for nebulization 2 ml INHALATION BID #120 ml 12/14/19 [Rx Confirmed 01/24/20 Last Taken Unknown] cholecalciferol (vitamin D3) 25,000 unit capsule 25,000 unit PO QDAY cap 12/14/19 [History Confirmed 01/24/20 Last Taken Unknown] ferrous sulfate 325 mg (65 mg iron) tablet 325 mg PO QDAY 12/14/19 [History Confirmed 01/23/20 Last Taken 01/22/20] formoterol fumarate 20 mcg/2 mL solution for nebulization 2 ml INHALATION BID #120 ml 12/14/19 [Rx Confirmed 01/24/20 Last Taken Unknown] loratadine 10 mg capsule 10 mg PO QDAY 12/14/19 [History Confirmed 01/24/20 Last Taken Unknown] prednisone 10 mg tablet 10 mg PO QDAY 12/14/19 [History Confirmed 01/23/20 Last Taken 01/23/20] ciprofloxacin HCl 750 mg tablet 750 mg PO BID 10 Days #20 tab 01/18/20 [Rx Confirmed 01/23/20 Last Taken 01/23/20] Atorvastatin [Lipitor] 20 mg PO HS 01/23/20 [History Confirmed 01/23/20 Last Taken 01/22/20] Azithromycin 250 mg PO DAILY #6 tab 01/23/20 [Rx Confirmed 01/24/20 Last Taken 01/23/20] Ultimate Kendal Probiotic Dr Cp 1 tab PO DAILY 01/24/20 [History Confirmed 01/24/20 Last Taken Unknown] Medical - DS: Hosp Hospital Course: Discharge diagnosis * Acute hypercapnic respiratory failure-clinically resolved and now at baseline. Discharging home with advised to follow with primary care physician/pul monology. Continue home trilogy BiPAP * Acute mental status change secondary to hypercapnia. Clinically resolved * History of obstructive sleep apnea/COPD -clinically improved with bronchodilators/steroids * Insulin-dependent diabetes continue basal prandial insulin. Blood sugars improving * H/o anemia stable * GERD continue PPI * Chronic kidney disease stage III stable. Monitor renal function * History of hypertension restart home medications including amlodipine * Hyperlipidemia continue statin * Anxiety disorder continue clonazepam Brief hospital course Ms. Garcia is a 69 year old F with history of advanced COPD with CO2 retention using trilogy BiPAP, RENE who presents to the ER with recurrent falls/shortness of breath, cough and increasing confusion. She was seen early this morning with generalized weakness and severe exacerbation was discharged after initial treatment in the ER. However she fell at home and subsequently EMS was summoned. During evaluation she was found to be very weak and confused. Initial blood gases 7.28/96. Patient was promptly started on noninvasive ventilatio for hypercapnic respiratory failure . CT head unremarkable. Blood work at baseline with creatinine 1.2 however elevated blood sugars at 335. Subsequently hospitalist service was consulted for admission. At the time of evaluation patient is confused. She is accompanied with her Tim. She was able to provide answers to leading questions and partial review of system but most of the history was obtained from review of medical records, ER physician and . Patient has had a gradual functional decline over the last few days. She endorses low-grade fever, cough, but denies sick contacts or travel outside [place]. She denies changes in medications. 01/23-patient doing better on noninvasive ventilation. More alert lucid and respond to commands this morning. Labs and hemodynamics stable. Repeat ABG pending. No family at bedside. No telemetry events. 01/24-patient doing well. More alert lucid. Overnight on BiPAP. Wean BiPAP today. Afebrile. No telemetry events. Continues oxygen. Improved blood sugars. Viral respiratory panel negative. Coronavirus pending 01/25 -Patient doing well. No overnight events. No concerns per staff. No fever chills. Off BiPAP during the day and tolerating well at night. Mentation at baseline. Discharging home with advised to follow primary care physician pulmonology. Discharge diagnosis: . - Time Spent with Patient Total time spent providing and/or coordinating discharge services: Greater than 30 minutes Medical - DS: Exam - Constitutional Vitals: Vital Signs Temp Pulse Resp BP Pulse Ox 01/26/20 08:28 74 16 01/26/20 08:01 20 100 01/26/20 08:00 97.8 F 13 134/64 100 01/26/20 06:01 65 19 114/62 98 01/26/20 05:36 76 22 121/76 98 01/26/20 05:14 65 20 99 01/26/20 04:01 70 19 110/63 98 01/26/20 04:00 97.3 F 01/26/20 02:48 66 19 98 01/26/20 02:01 70 19 121/72 98 01/26/20 01:57 18 98 01/26/20 01:00 72 18 97 01/26/20 00:08 64 18 98 01/26/20 00:01 97.7 F 68 18 105/57 98 01/25/20 23:19 69 19 106/55 99 01/25/20 22:44 76 23 H 96 01/25/20 22:01 18 152/67 01/25/20 20:01 97.3 F 76 20 129/80 95 01/25/20 20:00 17 95 01/25/20 19:23 75 15 01/25/20 18:01 77 18 135/71 96 01/25/20 16:00 99.4 F H 74 18 120/67 95 01/25/20 14:54 98.4 F 77 20 129/72 93 01/25/20 14:30 94 01/25/20 14:01 83 18 89/63 96 01/25/20 13:47 94 01/25/20 13:46 86 19 01/25/20 12:00 98.2 F 72 16 132/89 96 Intake and Output 01/25/20 01/26/20 01/26/20 21:59 05:59 13:59 Intake Total 640 404 4369 Output Total 150 300 Balance 240 210 700 Intake: IV 1000 Sodium Chloride 0.9% 1,000 ml @ 1000 50 mls/hr IV .Q20H [facility] Rx#: [id number] Oral 240 360 Output: Void Amount 150 300 Other: Meal Dinner Percent of Meal Consumed 100% Feeding Ability Needs Supervision Urine Color Dark Yellow Stool Size Moderate Small Stool Color Brown Brown Stool Consistency Soft Soft Formed # Bowel Movements 1 Weight 183 lb 6.4 oz Medical - DS: Data Labs on day of discharge: Labs from last 24 hours 01/26/20 01/26/20 05:00 05:00 WBC 6.5 RBC 3.64 Hgb 10.9 L Hct 36.8 MCV 101.1 H MCH 29.9 MCHC 29.6 L RDW 13.3 Plt Count 162 MPV 12.5 H Total Counted 100 Seg Neutrophils % 91 H Band Neutrophils % 4 Lymphocytes % 3 L Monocytes % (Manual) 2 Platelet Estimate Normal RBC Morphology Normal Sodium 139 Potassium 4.8 Chloride 97 Carbon Dioxide 35 H Anion Gap 7.0 L BUN 25 H Creatinine 1.1 GFR Calculation 51 Glucose 194 H Uric Acid 3.7 Calcium 8.1 L Phosphorus 2.1 L Magnesium 2.8 H Total Bilirubin 0.2 Direct Bilirubin < 0.2 GGT 17 AST 15 ALT 15 Alkaline Phosphatase 87 Lactate Dehydrogenase 209 Total Protein 6.1 Albumin 3.1 L Globulin 3.0 Albumin/Globulin Ratio 1.0 Triglycerides 182 H Medical - DS: A/P - Patient/Caregiver Discharge Instructions Activity: increase activity as tolerated Diet: Renal Additional Instructions: Follow-up PCP in 5 days Follow-up pulmonology in 1 week Continue prednisone/bronchodilator Continue aggressive bowel regimen to prevent constipation Continue fall precautions All meals on chair sitting upright at 90 degrees to prevent aspiration Return to ER if worsening fever chills shortness of breath, diarrhea, bleeding Refrain from smoking and alcohol Continue diet and activity as advised Discussed importance of medication adherence Please review medication list with patient prior to discharge Please schedule follow-up with PCP/Providers prior to discharge and provide printouts - Problem Maintenance (1) Acute hypercapnic respiratory failure Status: Acute - Follow up Plan Follow up with: Yola Paul MD [Primary Care Provider] - 02/01/20 3:30 pm Disposition: Home, Self-Care Care Plan Goals: This discharge packet is provided to you to help keep you informed about your care. We want to ensure you get everything you need when you go home. You will also be receiving a call from us in a few days to follow up with you and see how you are doing since your discharge. This gives us a chance to listen to any concerns you maybe experiencing since you were discharged or any additional needs you may have, as well as providing us feedback on your care experience. We strive to always provide excellent care and thank you for your feedback and for choosing [facility]. Prognosis: Undetermined Rehab Potential: Fair I certify that the patient requires SNF services: No Overall status at discharge: patient is progressing back to baseline
== END 2020-01-26 13:25 | disposition home or self-care (01) | DRG 189 ==
LOC: ED 18:29 → ICU 19:01
PROVIDERS: ADMIT Internal Medicine; ATTEND Internal Medicine

== ENCOUNTER 2021-02-27 10:27 | Inpatient (IN) ==
--- NOTE | 2021-02-27 11:50 | Emergency Department Note ---
Female Urogenital HPI General Chief complaint: Urogenital-Female Stated complaint: urogenital Time Seen by Provider: 02/27/21 11:35 Source: patient Mode of arrival: ambulatory Limitations: no limitations History of Present Illness HPI Narrative: 70-year-old female presents with complaint of blood in the urine along with discomfort with urination started this morning. Patient was treated for urinary tract infection a couple weeks ago. Chart was reviewed she did grow E. coli on urine culture. Patient was placed on Keflex after being given a dose of Rocephin. She denies any fever chills vomiting or diarrhea. She is noted some clots in her urine today. Along with the dysuria urinary frequency and urgency. Patient denies any chest pain she is chronically short of breath on oxygen chronically which is unchanged. She does have some chronic kidney disease as well. She was also having some difficulty urinating this morning. Related Data Home Medications Medication Instructions Recorded Confirmed pantoprazole 40 mg PO QAMAC 06/06/15 02/04/21 paroxetine HCl 40 mg PO DAILY 06/06/15 02/04/21 trazodone 50 mg PO HS 06/06/15 02/04/21 tramadol 50 mg tablet 50 mg PO DAILY PRN 06/19/18 02/04/21 clonazepam 0.5 mg tablet 0.5 mg PO QDAY tab 12/07/18 02/04/21 alendronate 70 mg tablet 70 mg PO QWEEK 02/17/19 02/04/21 loratadine 10 mg capsule 10 mg PO QDAY 12/14/19 02/04/21 prednisone 10 mg tablet 10 mg PO QDAY 12/14/19 02/04/21 3lpm with CPAP and home vent #1 ea 12/11/20 02/04/21 acetaminophen 500 mg capsule 500 mg PO Q6H 12/11/20 02/04/21 cholecalciferol (vitamin D3) 25 25 mcg PO QDAY 12/11/20 02/04/21 mcg (1,000 unit) capsule clotrimazole 10 mg zuri 10 mg MUCOUS MEM ONCE 12/11/20 02/04/21 insulin glargine U-300 conc 300 27 unit SUB-Q QDAY ml 12/11/20 02/04/21 unit/mL (1.5 mL) subcutaneous pen mecobalamin (vitamin B12) 1,000 1,000 mcg PO QDAY 12/11/20 02/04/21 mcg chewable tablet ondansetron HCl 4 mg tablet 4 mg PO Q8H PRN 12/11/20 02/04/21 furosemide 20 mg PO DAILY 02/04/21 02/04/21 Previous Rx's Medication Instructions Recorded diltiazem HCl 120 mg 120 mg PO QAM #30 cap 06/06/20 capsule,extended release 24 hr, controlled fluticasone fur. 100 mcg-umeclid 1 inh INHALATION Q24H #60 each 11/24/20 62.5 mcg-vilant 25 mcg inhalat.powder albuterol sulfate 90 mcg/actuation 2 puff INHALATION Q6H PRN #18 g 12/11/20 aerosol inhaler prednisone 10 mg PO QDAY #30 tab 02/04/21 cefadroxil 500 mg PO BID #20 cap 02/11/21 fluconazole [Diflucan] 150 mg PO ONCE #1 tab 02/11/21 phenazopyridine [Pyridium] 100 mg PO TID PRN #6 tab 02/11/21 cephalexin 500 mg PO BID #14 tab 02/27/21 Allergies Allergy/AdvReac Type Severity Reaction Status Date / Time hydrocodone Allergy Severe Swelling Verified 02/27/21 10:30 Amoxicillin AdvReac Mild Gastrointestinal Verified 02/27/21 10:30 Upset doxycycline AdvReac Mild bloating Verified 02/27/21 10:30 meperidine [From Demerol] AdvReac Mild Vomiting Verified 02/27/21 10:30 fragrances Allergy "plugs me Uncoded 08/25/20 10:57 up" narcotics AdvReac respiratory Uncoded 08/25/20 10:57 depression Review of Systems ROS ROS Narrative: Narrative: All systems ED: reviewed and negative except as stated. Constitutional: Denies fever, chills and sweats Eyes: Denies vision change Cardiovascular: Denies chest pain Respiratory: Reports shortness of breath (Chronic shortness of breath unchanged) Gastrointestinal: Denies abdominal pain, vomiting and diarrhea Genitourinary: Reports dysuria, urgency, frequency and hematuria Musculoskeletal: Denies back pain and joint pain Integumentary: Denies rash Neurological: Denies headache and dizziness Psychiatric: Denies anxiety, suicidal thoughts and homicidal thoughts Endocrine: Denies polydipsia and polyuria Hematological/Lymphatic: Denies easy bleeding and easy bruising PFSH Narrative Patient History Narrative: Narrative: Medical/Surgical/Family History All Active Problems (Updated 02/27/21 @ 13:56 by Giuseppe Sagastume MD) Uncontrolled diabetes mellitus (Acute) Yeast infection (Acute) Constipation (Acute) Thrush (Acute) Pharyngitis (Acute) Pneumonia (Acute) Right-sided back pain (Acute) UTI (urinary tract infection) (Acute) Dental caries (Acute) Common cold (Acute) Concussion without loss of consciousness (Acute) Contusion (Acute) Minor head injury (Acute) Injury of coccyx (Acute) Acute exacerbation of chronic obstructive airways disease (Acute) COPD exacerbation (Acute) Muscle spasm (Acute) Lung mass (Acute) Fall (Acute) Low back pain (Acute) Hyperglycemia (Acute) Hypoxia (Acute) Confusion (Acute) Hyperglycemia due to type 1 diabetes mellitus (Acute) Acute hypercapnic respiratory failure (Acute) Skin tear of right forearm without complication (Acute) Aspiration into airway (Chronic) Cavitary lesion of lung (Chronic) Type 2 diabetes mellitus, with long-term current use of insulin (Chronic) CKD (chronic kidney disease), stage III (Chronic) Hypoxemia (Chronic) Fracture of metatarsal of right foot, closed (Acute) Right ankle pain (Acute) Right foot pain (Acute) Anxiety (Chronic) Bilateral hand pain (Chronic) Hypercholesterolemia (Chronic) Hypertension (Chronic) End stage COPD (Chronic) Oxygen dependent (Chronic) Pneumonia (Acute) Respiratory failure (Acute) Sepsis (Acute) Hypercapnic respiratory failure (Acute) Acute respiratory failure (Acute) Acute respiratory failure with hypoxia and hypercapnia (Acute) Bronchitis (Acute) COPD exacerbation (Acute) Acute anxiety (Acute) Excessive cerumen in left ear canal (Acute) COPD exacerbation (Acute) Community acquired pneumonia (Acute) Gastroenteritis (Acute) Chronic kidney disease, stage IV (severe) (Chronic) Anemia (Chronic) Hypertensive renal disease (Chronic) CKD (chronic kidney disease), stage III (Chronic) History of cholecystectomy (Acute) Actinic keratosis (Chronic) Osteopenia (Chronic) Unspecified urinary incontinence (Chronic) Anxiety state (Chronic) Situational depression (Chronic) Right arm pain (Chronic) Pain in hand (Chronic) Accidental fall (Chronic) GERD (gastroesophageal reflux disease) (Chronic) Diabetes mellitus, type II (Chronic) Hypertension, essential (Chronic) Allergic rhinitis (Chronic) COPD (chronic obstructive pulmonary disease) (Chronic) Glossitis (Chronic) Hemangioma (Chronic) Keratosis, seborrheic (Chronic) Lentigo (Chronic) Benign neoplasm of skin (Chronic) Acquired skin tag (Chronic) Hyperkalemia (Chronic) Medical History (Updated 02/27/21 @ 13:56 by Giuseppe Sagastume MD) Accidental fall Recurrent Acquired skin tag Actinic keratosis Acute anxiety Acute infective cystitis Acute renal failure (ARF) Acute respiratory failure Acute respiratory failure with hypoxia and hypercapnia Allergic rhinitis Anemia Anxiety Anxiety state Aspiration into airway Benign neoplasm of skin Bilateral hand pain Bronchitis Cavitary lesion of lung Chronic kidney disease, stage IV (severe) CKD (chronic kidney disease), stage III HTN and minimal proteinuria Hematuria in the past CKD (chronic kidney disease), stage III 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 and the effects of nonsteroidal anti-inflammatories Community acquired pneumonia COPD (chronic obstructive pulmonary disease) Severe COPD exacerbation COPD exacerbation Diabetes mellitus, type II given her egfr metformin was stopped started on glipizide adverse effects discussed advised to schedule visit with Dr Paul for further monitoring and management of CKD End stage COPD Excessive cerumen in left ear canal Gastroenteritis GERD (gastroesophageal reflux disease) Glossitis Hemangioma Hypercapnic respiratory failure Hypercholesterolemia Hyperkalemia Intermittent discussed low K diet ct furosemide which will help with kaliuresis will follow Hypertension Hypertension, essential Not at goal, given the extent of her pulmonary disease I would avoid beta- blockers Hypertensive renal disease Hypoxemia Keratosis, seborrheic Lentigo Benign Osteopenia Oxygen dependent Pain in hand Bilateral Pharyngitis Pneumonia Pneumonia Respiratory failure Right arm pain Right-sided back pain Sepsis Situational depression Thrush Type 2 diabetes mellitus, with long-term current use of insulin On insulin therapy and frequent steroids for pulmonary issues Unspecified urinary incontinence UTI (urinary tract infection) Surgical History History of cholecystectomy Family History Mother Pulmonary emphysema, Onset Age: 48 Unknown Type 2 diabetes mellitus Osteoporosis Malignant neoplasm Social History Smoking Status: Former smoker Alcohol Intake Frequency: former alcohol drinker Substance Use: does not use Exam Narrative Narrative: Constitutional: Awake alert no acute distress obese HEENT: Normocephalic, atraumatic PERRLA, EOMI, oral mucosa moist, pharynx clear, has nasal cannula Neck: Supple, no lymphadenopathy, no JVD Lungs: Diminished breath sounds bilateral lungs clear Cardiac: Regular rate and rhythm, normal distal pulses, GI: Soft nontender nondistended no guarding no rebound Musculoskeletal: No tenderness, no deformities, no edema, full range of motion Neuro: Awake alert, cranial nerves II through XII grossly intact, no focal motor or sensory deficits Psychiatric: Normal mood and affect Skin: Warm dry no rash, cap refill less than 2 seconds General Limitations: no limitations Course Reevaluation(s) Reevaluation #1: Patient feels better the hematuria has cleared up. I discussed and offered admission to the hospital for treatment of what appears to be a recurrent urinary tract infection but the patient declines prefers to be treated as an outpatient. She will be given a dose of IM Rocephin then discharge with a prescription for Keflex as the urine culture from February 11 grew E. coli sensitive to all antimicrobials. Time: 13:47 Reevaluation #2: Patient changed her mind and she is agreeable to being admitted now. an IV will be placed she was given a dose of Rocephin intravenously instead of IM. Time: 14:30 Consultations Consultation #1: Discussed with hospitalist, Dr. Linares who agrees to see the patient in the emergency department and admit. Time: 15:21 Vital Signs Vital signs: Vital Signs Temperature 96.9 F L 02/27/21 10:28 Pulse Rate 77 02/27/21 10:28 Respiratory Rate 20 02/27/21 10:28 Blood Pressure 147/74 02/27/21 10:28 Pulse Oximetry (%) 96 02/27/21 10:28 Temperature 96.9 F L 02/27/21 10:28 Pulse Rate 60 02/27/21 15:50 Respiratory Rate 20 02/27/21 10:28 Blood Pressure 167/62 02/27/21 15:46 Pulse Oximetry (%) 98 02/27/21 15:50 MDM MDM Narrative Medical decision making narrative: 70-year-old presents with recurrence of urinary frequency urgency and hematuria today. Patient had similar symptoms on February 11 found having a tract infection. Urinalysis today once again shows hematuria and white cells in the urine. The hematuria has cleared up now. Patient is not toxic appearing she does have chronic lung disease which is stable. White count 11.8. Glucose is 400 which I discussed with the patient she does not have the best control and may be high because she has an infection now. I did discuss suggest and offer admission to the hospital for treatment of the tract infection improved control of the diabetes and the patient initially declined but now she agrees to be admitted for further evaluation and treatment she will be given a dose of IV Rocephin rather than IM and IV has been placed. Patient also given 10 units of regular subcu insulin for the acute elevation in sugar. Hospitalist will be contacted at this time. Differential Diagnosis Differential Diagnosis: Recurrent UTI, hematuria, sepsis Lab Data Result diagrams: 02/27/21 11:49 02/27/21 11:48 Labs: Lab Results 02/27/21 02/27/21 02/27/21 Range/Units 11:48 11:48 11:49 WBC 11.8 H (4.5-11.0) K/mcL RBC 4.42 (4.00-5.20) M/mcL Hgb 12.8 (12.0-15.0) g/dL Hct 44.5 (36.0-48.0) % MCV 100.7 H (80.0-100.0) fL MCH 29.0 (26.0-34.0) pg MCHC 28.8 L (31.0-36.0) g/dL RDW 12.9 (11.5-14.5) % Plt Count 176 (140-440) K/mcL MPV 12.5 H (7.4-10.4) fL Seg Neutrophils % 88 H (38-78) % Lymphocytes % 6 L (15-49) % Monocytes % (Manual) 5 (1-12) % Eosinophils % (Manual) 1 (0-7) % Platelet Estimate Normal (Normal) RBC Morphology Abnormal A (Normal) Macrocytosis Few A (None Seen) VBG Lactic Acid 1.2 (0.5-2.0) mmol/L Sodium 138 (133-145) mmol/L Potassium 4.6 (3.3-5.1) mmol/L Chloride 96 (96-108) mmol/L Carbon Dioxide 34 H (22-30) mmol/L Anion Gap 8.0 (8.0-16.0) BUN 20 (8-23) mg/dL Creatinine 1.2 H (0.6-1.1) mg/dL GFR Calculation 45 Glucose 400 H (70-105) mg/dL Calcium 8.4 L (8.6-10.4) mg/dL Total Bilirubin < 0.2 (0.1-1.0) mg/dL AST 16 (<32) U/L ALT 21 (<40) U/L Alkaline Phosphatase 98 (39-117) U/L Total Protein 6.5 (5.9-8.4) gm/dL Albumin 3.7 (3.2-5.2) gm/dL Globulin 2.8 (2.2-3.7) gm/dL Albumin/Globulin Ratio 1.3 (1.0-2.3) Urine Color Urine Appearance (Clear) Urine pH (5.0-9.0) Ur Specific [place] (1.000-1.035) Urine Protein (Negative) mg/dL Urine Glucose (UA) (Negative) mg/dL Urine Ketones (Negative) mg/dL Urine Occult Blood (Negative) mg/dL Urine Nitrate (Negative) Urine Bilirubin (Negative) mg/dL Urine Urobilinogen mg/dL Ur Leukocyte Esterase (Negative) /ug Urine RBC (0-1) /hpf Urine WBC (0-4) /hpf Ur Squamous Epith Cells (0-4) /hpf Urine Bacteria (0) /hpf Ur Culture Indicated? 02/27/21 Range/Units 12:05 WBC (4.5-11.0) K/mcL RBC (4.00-5.20) M/mcL Hgb (12.0-15.0) g/dL Hct (36.0-48.0) % MCV (80.0-100.0) fL MCH (26.0-34.0) pg MCHC (31.0-36.0) g/dL RDW (11.5-14.5) % Plt Count (140-440) K/mcL MPV (7.4-10.4) fL Seg Neutrophils % (38-78) % Lymphocytes % (15-49) % Monocytes % (Manual) (1-12) % Eosinophils % (Manual) (0-7) % Platelet Estimate (Normal) RBC Morphology (Normal) Macrocytosis (None Seen) VBG Lactic Acid (0.5-2.0) mmol/L Sodium (133-145) mmol/L Potassium (3.3-5.1) mmol/L Chloride (96-108) mmol/L Carbon Dioxide (22-30) mmol/L Anion Gap (8.0-16.0) BUN (8-23) mg/dL Creatinine (0.6-1.1) mg/dL GFR Calculation Glucose (70-105) mg/dL Calcium (8.6-10.4) mg/dL Total Bilirubin (0.1-1.0) mg/dL AST (<32) U/L ALT (<40) U/L Alkaline Phosphatase (39-117) U/L Total Protein (5.9-8.4) gm/dL Albumin (3.2-5.2) gm/dL Globulin (2.2-3.7) gm/dL Albumin/Globulin Ratio (1.0-2.3) Urine Color Yellow Urine Appearance Cloudy A (Clear) Urine pH 6.0 (5.0-9.0) Ur Specific [place] 1.016 (1.000-1.035) Urine Protein 30 A (Negative) mg/dL Urine Glucose (UA) >=500 A (Negative) mg/dL Urine Ketones Negative (Negative) mg/dL Urine Occult Blood >=1.0 A (Negative) mg/dL Urine Nitrate Negative (Negative) Urine Bilirubin Negative (Negative) mg/dL Urine Urobilinogen Negative mg/dL Ur Leukocyte Esterase 500 A (Negative) /ug Urine RBC > 182 H (0-1) /hpf Urine WBC > 182 H (0-4) /hpf Ur Squamous Epith Cells < 1 (0-4) /hpf Urine Bacteria None (0) /hpf Ur Culture Indicated? yes ED POC Tests ED POC Tests: [place] - SARS Antigen Negative Discharge Plan Patient/Caregiver Discharge Instructions Pt seen by [employer] MANAGER/PA only: No Clinical Impression: UTI (urinary tract infection), Uncontrolled diabetes mellitus Activity: resume usual activities as tolerated Instructions: Diabetic Hyperglycemia (ED), Urinary Tract Infection in Older Adults (ED) Patient Disposition: Xfer As Inpt ([facility]) Condition: Fair Follow up with: Yola Paul MD [Primary Care Provider] - Prescriptions: New cephalexin 500 mg tablet 500 mg PO BID Qty: 14 RF: 0 No Action Trelegy Ellipta 100-62.5-25 mcg blister with device 1 inh INHALATION Q24H Qty: 60 RF: 6 Rosy Smith U-300 Insulin 300 unit/mL (1.5 mL) insulin pen 27 unit SUB-Q QDAY RF: 0 clonazepam 0.5 mg tablet 0.5 mg PO QDAY RF: 0 diltiazem HCl 120 mg capsule,ext.rel 24h degradable 120 mg PO QAM Qty: 30 RF: 11 prednisone 10 mg tablet 10 mg PO QDAY RF: 0 loratadine 10 mg capsule 10 mg PO QDAY RF: 0 acetaminophen 500 mg capsule 500 mg PO Q6H RF: 0 cholecalciferol (vitamin D3) 25 mcg (1,000 unit) capsule 25 mcg PO QDAY RF: 0 mecobalamin (vitamin B12) 1,000 mcg tablet,chewable 1,000 mcg PO QDAY RF: 0 ondansetron HCl 4 mg tablet 4 mg PO Q8H PRN (Reason: Nausea) RF: 0 clotrimazole 10 mg zuri 10 mg MUCOUS MEM ONCE RF: 0 (DME) 3lpm with CPAP and home vent Qty: 1 RF: 0 albuterol sulfate 90 mcg/actuation HFA aerosol inhaler 2 puff INHALATION Q6H PRN (Reason: shortness of breath or wheezing) Qty: 18 RF: 3 tiotropium bromide [Spiriva Respimat] 2.5 mcg/actuation mist RF: 0 alendronate 70 mg tablet 70 mg PO QWEEK RF: 0 trazodone 50 MG tablet 50 mg PO HS RF: 0 pantoprazole 40 MG tablet,delayed release (DR/EC) 40 mg PO QAMAC RF: 0 paroxetine HCl 40 MG tablet 40 mg PO DAILY RF: 0 tramadol 50 mg tablet 50 mg PO Q4 PRN (Reason: Pain) RF: 0 furosemide 20 mg tablet 20 mg PO DAILY RF: 0 prednisone 10 mg tablet 10 mg PO QDAY Qty: 30 RF: 0 cefadroxil 500 mg capsule 500 mg PO BID Qty: 20 RF: 0 fluconazole [Diflucan] 150 mg tablet 150 mg PO ONCE Qty: 1 RF: 0 phenazopyridine [Pyridium] 100 mg tablet 100 mg PO TID PRN (Reason: pain) Qty: 6 RF: 0
[2021-02-27 12:24] LABS: Hematocrit 44.5 % (36.0-48.0); Hemoglobin 12.8 g/dL (12.0-15.0); Mean Cell Volume 100.7 fL (80.0-100.0); Mean Corpuscular HGB Conc 28.8 g/dL (31.0-36.0); Mean Platelet Volume 12.5 fL (7.4-10.4); Platelet Count 176 K/mcL (140-440); RBC 4.42 M/mcL (4.00-5.20); Red Cell Distribution Width 12.9 % (11.5-14.5); WBC 11.8 K/mcL (4.5-11.0)
[2021-02-27 13:01] LABS: Eosinophils % (Manual) 1 % (0-7); Lymphocytes % 6 % (15-49); Macrocytosis FEW (None Seen); Monocytes % (Manual) 5 % (1-12); Platelet Estimate NORMAL (Normal); RBC Morphology ABNORMAL (Normal); Segmented Neutrophils % 88 % (38-78)
[2021-02-27 13:15] LABS: Appearance,Urine CLOUDY (Clear); Bilirubin,Urine Negative (Negative); Color,Urine YELLOW; Culture Indicated,Urine yes; Glucose,Urine (UA) >=500 mg/dL (Negative); Ketones,Urine Negative (Negative); Leukocyte Esterase,Urine 500 /ug (Negative); Nitrate,Urine Negative (Negative); Protein,Urine 30 mg/dL (Negative); Specific Gravity,Urine 1.016 (1.000-1.035); Urine Blood >=1.0 mg/dL (Negative); Urine RBC > 182 /hpf (0-1); Urine Squamous Epithelial Cell < 1 /hpf (0-4); Urine WBC > 182 /hpf (0-4); Urobilinogen,Urine Negative
[2021-02-27 13:26] LABS: ALT/SGPT 21 U/L (<40); AST/SGOT 16 U/L (<32); Albumin 3.7 gm/dL (3.2-5.2); Albumin/Globulin Ratio 1.3 (1.0-2.3); Alkaline Phosphatase 98 U/L (39-117); Bilirubin,Total < 0.2 mg/dL (0.1-1.0); Blood Urea Nitrogen 20 mg/dL (8-23); Calcium 8.4 mg/dL (8.6-10.4); Carbon Dioxide 34 mmol/L (22-30); Chloride 96 mmol/L (96-108); Globulin 2.8 gm/dL (2.2-3.7); Glomerular Filtration Rate 45; Glucose 400 mg/dL (70-105)
[2021-02-27] MEDS ORDERED: cefTRIAXone 1 GM VIAL IV ONE ×2 (13:42→15:27)
[2021-02-27] MEDS ORDERED: cefTRIAXone 1 GM VIAL IM ONE (13:47)
[2021-02-27] MEDS ORDERED: INSULIN REGULAR, HUMAN 1 UNIT/0.01 ML UNIT SQ ONE (13:54)
[2021-02-27] MEDS ORDERED: 0.9 % SODIUM CHLORIDE 500 ML IV ONE (14:35)
[2021-02-27] MEDS ORDERED: INSULIN REGULAR, HUMAN 1 UNIT/0.01 ML UNIT IV ONE (15:27)
--- NOTE | 2021-02-27 15:50 | Internal Med History&Physical ---
HPI History of Present Illness Patient information: Note initiated : 02/27/21 at 3:39 pm Service Date, if different from initiated Date: [] Patient: Trevor Garcia a 70 y/o F admitted on for urogenital. Chief Complaint: [] History of present illness: Ms. Garcia is a 70 year old F Patient presents feeling ill dysuria feel like a urinary tract infection is back. In the ED she was evaluated found of a mild leukocytosis she had elevated blood glucose around 400. Her analysis was consistent with infectious findings. She was treated several weeks ago for urinary tract infection with E. coli and pansensitive she says she finished the 10-day course and then sometime thereafter started having dysuria and discomfort in [place] she had a urinary tract infection again. She says she does not adhere to diabetic diet. Her sugars she says typically her under 200 but they have been 2-4 100s lately. I see in the past she has grown Pseudomonas in her urine. I suspect that the recurrence is secondary to her poor control of her diabetes and adherence to diet or a second bacteria such as Pseudomonas has entered the equation. Review of Systems: Pertinent positives as above. Denies headache/fever/chills/nausea/vomiting/chest or abdominal pain/c ough/dyspnea/diarrhea. Remaining 10 point review of system reviewed negative PFSH PFSH All Active Problems (Updated 02/27/21 @ 13:56 by Giuseppe Sagastume MD) Uncontrolled diabetes mellitus (Acute) Yeast infection (Acute) Constipation (Acute) Thrush (Acute) Pharyngitis (Acute) Pneumonia (Acute) Right-sided back pain (Acute) UTI (urinary tract infection) (Acute) Dental caries (Acute) Common cold (Acute) Concussion without loss of consciousness (Acute) Contusion (Acute) Minor head injury (Acute) Injury of coccyx (Acute) Acute exacerbation of chronic obstructive airways disease (Acute) COPD exacerbation (Acute) Muscle spasm (Acute) Lung mass (Acute) Fall (Acute) Low back pain (Acute) Hyperglycemia (Acute) Hypoxia (Acute) Confusion (Acute) Hyperglycemia due to type 1 diabetes mellitus (Acute) Acute hypercapnic respiratory failure (Acute) Skin tear of right forearm without complication (Acute) Aspiration into airway (Chronic) Cavitary lesion of lung (Chronic) Type 2 diabetes mellitus, with long-term current use of insulin (Chronic) CKD (chronic kidney disease), stage III (Chronic) Hypoxemia (Chronic) Fracture of metatarsal of right foot, closed (Acute) Right ankle pain (Acute) Right foot pain (Acute) Anxiety (Chronic) Bilateral hand pain (Chronic) Hypercholesterolemia (Chronic) Hypertension (Chronic) End stage COPD (Chronic) Oxygen dependent (Chronic) Pneumonia (Acute) Respiratory failure (Acute) Sepsis (Acute) Hypercapnic respiratory failure (Acute) Acute respiratory failure (Acute) Acute respiratory failure with hypoxia and hypercapnia (Acute) Bronchitis (Acute) COPD exacerbation (Acute) Acute anxiety (Acute) Excessive cerumen in left ear canal (Acute) COPD exacerbation (Acute) Community acquired pneumonia (Acute) Gastroenteritis (Acute) Chronic kidney disease, stage IV (severe) (Chronic) Anemia (Chronic) Hypertensive renal disease (Chronic) CKD (chronic kidney disease), stage III (Chronic) History of cholecystectomy (Acute) Actinic keratosis (Chronic) Osteopenia (Chronic) Unspecified urinary incontinence (Chronic) Anxiety state (Chronic) Situational depression (Chronic) Right arm pain (Chronic) Pain in hand (Chronic) Accidental fall (Chronic) GERD (gastroesophageal reflux disease) (Chronic) Diabetes mellitus, type II (Chronic) Hypertension, essential (Chronic) Allergic rhinitis (Chronic) COPD (chronic obstructive pulmonary disease) (Chronic) Glossitis (Chronic) Hemangioma (Chronic) Keratosis, seborrheic (Chronic) Lentigo (Chronic) Benign neoplasm of skin (Chronic) Acquired skin tag (Chronic) Hyperkalemia (Chronic) Medical History (Updated 02/27/21 @ 13:56 by Giuseppe Sagastume MD) Accidental fall Recurrent Acquired skin tag Actinic keratosis Acute anxiety Acute infective cystitis Acute renal failure (ARF) Acute respiratory failure Acute respiratory failure with hypoxia and hypercapnia Allergic rhinitis Anemia Anxiety Anxiety state Aspiration into airway Benign neoplasm of skin Bilateral hand pain Bronchitis Cavitary lesion of lung Chronic kidney disease, stage IV (severe) CKD (chronic kidney disease), stage III HTN and minimal proteinuria Hematuria in the past CKD (chronic kidney disease), stage III 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 and the effects of nonsteroidal anti-inflammatories Community acquired pneumonia COPD (chronic obstructive pulmonary disease) Severe COPD exacerbation COPD exacerbation Diabetes mellitus, type II given her egfr metformin was stopped started on glipizide adverse effects discussed advised to schedule visit with Dr Paul for further monitoring and management of CKD End stage COPD Excessive cerumen in left ear canal Gastroenteritis GERD (gastroesophageal reflux disease) Glossitis Hemangioma Hypercapnic respiratory failure Hypercholesterolemia Hyperkalemia Intermittent discussed low K diet ct furosemide which will help with kaliuresis will follow Hypertension Hypertension, essential Not at goal, given the extent of her pulmonary disease I would avoid beta- blockers Hypertensive renal disease Hypoxemia Keratosis, seborrheic Lentigo Benign Osteopenia Oxygen dependent Pain in hand Bilateral Pharyngitis Pneumonia Pneumonia Respiratory failure Right arm pain Right-sided back pain Sepsis Situational depression Thrush Type 2 diabetes mellitus, with long-term current use of insulin On insulin therapy and frequent steroids for pulmonary issues Unspecified urinary incontinence UTI (urinary tract infection) Surgical History History of cholecystectomy Family History Mother Pulmonary emphysema, Onset Age: 48 Unknown Type 2 diabetes mellitus Osteoporosis Malignant neoplasm Social History marital status: occupational status: retired smoking status stop date: 07/12/99 alcohol intake frequency: former alcohol drinker substance use type: does not use MEDS/ALLERGIES Home Medications and Allergies Home Medications Medication Instructions Recorded Confirmed Type pantoprazole 40 mg PO QAMAC 06/06/15 02/27/21 History paroxetine HCl 40 mg PO DAILY 06/06/15 02/27/21 History trazodone 50 mg PO HS 06/06/15 02/27/21 History tramadol 50 mg tablet 50 mg PO Q4 PRN 06/19/18 02/27/21 History clonazepam 0.5 mg tablet 0.5 mg PO QDAY tab 12/07/18 02/04/21 History alendronate 70 mg tablet 70 mg PO QWEEK 02/17/19 02/27/21 History loratadine 10 mg capsule 10 mg PO QDAY 12/14/19 02/04/21 History prednisone 10 mg tablet 10 mg PO QDAY 12/14/19 02/04/21 History diltiazem HCl 120 mg 120 mg PO QAM #30 cap 06/06/20 02/27/21 Rx capsule,extended release 24 hr, controlled fluticasone fur. 100 mcg-umeclid 1 inh INHALATION Q24H #60 each 11/24/20 02/04/21 Rx 62.5 mcg-vilant 25 mcg inhalat.powder 3lpm with CPAP and home vent #1 ea 12/11/20 02/04/21 History acetaminophen 500 mg capsule 500 mg PO Q6H 12/11/20 02/04/21 History albuterol sulfate 90 mcg/actuation 2 puff INHALATION Q6H PRN #18 g 12/11/20 02/04/21 Rx aerosol inhaler cholecalciferol (vitamin D3) 25 25 mcg PO QDAY 12/11/20 02/04/21 History mcg (1,000 unit) capsule clotrimazole 10 mg zuri 10 mg MUCOUS MEM ONCE 12/11/20 02/04/21 History insulin glargine U-300 conc 300 27 unit SUB-Q QDAY ml 12/11/20 02/04/21 History unit/mL (1.5 mL) subcutaneous pen mecobalamin (vitamin B12) 1,000 1,000 mcg PO QDAY 12/11/20 02/04/21 History mcg chewable tablet ondansetron HCl 4 mg tablet 4 mg PO Q8H PRN 12/11/20 02/04/21 History furosemide 20 mg PO DAILY 02/04/21 02/27/21 History prednisone 10 mg PO QDAY #30 tab 02/04/21 Rx cefadroxil 500 mg PO BID #20 cap 02/11/21 Rx fluconazole [Diflucan] 150 mg PO ONCE #1 tab 02/11/21 Rx phenazopyridine [Pyridium] 100 mg PO TID PRN #6 tab 02/11/21 Rx cephalexin 500 mg PO BID #14 tab 02/27/21 Rx Allergies Allergy/AdvReac Type Severity Reaction Status Date / Time hydrocodone Allergy Severe Swelling Verified 02/27/21 10:30 Amoxicillin AdvReac Mild Gastrointestinal Verified 02/27/21 10:30 Upset doxycycline AdvReac Mild bloating Verified 02/27/21 10:30 meperidine [From Demerol] AdvReac Mild Vomiting Verified 02/27/21 10:30 fragrances Allergy "plugs me Uncoded 08/25/20 10:57 up" narcotics AdvReac respiratory Uncoded 08/25/20 10:57 depression EXAM Constitutional Vitals: Temp Pulse Resp BP Pulse Ox 96.9 F L 72 20 170/68 96 02/27/21 10:28 02/27/21 15:13 02/27/21 10:28 02/27/21 15:13 02/27/21 15:13 Exam: General: Alert, Awake, No acute Distress, obese Eyes/N/T: EOMI, PERRL, Head/Neck: neck supple, normocephalic atraumatic CV: RRR, No murmurs, normal s1/s2 Pulm: Clear b/l, no wheezing/rhonchi/rales Abd: soft, nontender, +BS x4 Ext: no clubbing/cyanosis, trace b/l LE edema Neuro: Alert, no focal deficits, moves all extremities, CN 2-12 grossly intact, symmetrical strength b/l upper/lower, sensations intact b/l upper/lower Skin: warm/dry DATA Data Completed and Pending Labs: Labs from last 24 hours 02/27/21 02/27/21 02/27/21 12:05 11:49 11:48 WBC 11.8 H RBC 4.42 Hgb 12.8 Hct 44.5 MCV 100.7 H MCH 29.0 MCHC 28.8 L RDW 12.9 Plt Count 176 MPV 12.5 H Seg Neutrophils % 88 H Lymphocytes % 6 L Monocytes % (Manual) 5 Eosinophils % (Manual) 1 Platelet Estimate Normal RBC Morphology Abnormal A Macrocytosis Few A VBG Lactic Acid 1.2 Sodium Potassium Chloride Carbon Dioxide Anion Gap BUN Creatinine GFR Calculation Glucose Calcium Total Bilirubin AST ALT Alkaline Phosphatase Total Protein Albumin Globulin Albumin/Globulin Ratio Urine Color Yellow Urine Appearance Cloudy A Urine pH 6.0 Ur Specific [place] 1.016 Urine Protein 30 A Urine Glucose (UA) >=500 A Urine Ketones Negative Urine Occult Blood >=1.0 A Urine Nitrate Negative Urine Bilirubin Negative Urine Urobilinogen Negative Ur Leukocyte Esterase 500 A Urine RBC > 182 H Urine WBC > 182 H Ur Squamous Epith Cells < 1 Urine Bacteria None Ur Culture Indicated? yes 02/27/21 11:48 WBC RBC Hgb Hct MCV MCH MCHC RDW Plt Count MPV Seg Neutrophils % Lymphocytes % Monocytes % (Manual) Eosinophils % (Manual) Platelet Estimate RBC Morphology Macrocytosis VBG Lactic Acid Sodium 138 Potassium 4.6 Chloride 96 Carbon Dioxide 34 H Anion Gap 8.0 BUN 20 Creatinine 1.2 H GFR Calculation 45 Glucose 400 H Calcium 8.4 L Total Bilirubin < 0.2 AST 16 ALT 21 Alkaline Phosphatase 98 Total Protein 6.5 Albumin 3.7 Globulin 2.8 Albumin/Globulin Ratio 1.3 Urine Color Urine Appearance Urine pH Ur Specific [place] Urine Protein Urine Glucose (UA) Urine Ketones Urine Occult Blood Urine Nitrate Urine Bilirubin Urine Urobilinogen Ur Leukocyte Esterase Urine RBC Urine WBC Ur Squamous Epith Cells Urine Bacteria Ur Culture Indicated? A/P Narrative A/P Narrative: A: *Recurrent UTI: Failed outpatient therapy -last UC with e.coli but has grown pseudomonas in past; additionally she is poorly controlled DM and on prednisone -mild leukocytosis *Hematuria: 2/2 likely above, but with recurrent uti's will check ct kub to identify any structural reasons or stones that could contribute to recurrent infections *DM w/Hyperglycemia: poorly controlled, pt does not adhere to diabetic diet -A1c 10.0 *CKD III: *Anemia, chronic: *COPD(3L@home): on prednisone 10mg qd *HTN: On diltiazem *RENE w/CPAP: *Depression/anxiety: *Obesity: *GERD: * P: -will cover for pseuomonas with cefepime, pending UC -home insulin(titrate as needed), SSI. diabetes education -clarify home meds -home IH's, prn nebs -cont home prednisone - -pt/ot -ppx: Lovenox DNR Time Spent With Patient Time: Total time spent is greater than 50% in coordination of care (as documented) at patient's floor/unit and/or counseling patient:
[2021-02-27] MEDS ORDERED: POTASSIUM CHLORIDE 20 MEQ TABLET PO PRN ×2 (17:46)
[2021-02-27] MEDS ORDERED: MAGNESIUM SULFATE 2 GM/50 ML BAG IV PRN (17:46)
[2021-02-27] MEDS ORDERED: ONDANSETRON 4 MG/2 ML VIAL IV PRN (17:46)
[2021-02-27] MEDS ORDERED: POLYETHYLENE GLYCOL 3350 17 GM PACKET PO PRN (17:46)
[2021-02-27] MEDS ORDERED: IPRATROPIUM/ALBUTEROL 3 ML AMPUL.NEB NEB PRN (17:46)
[2021-02-27] MEDS ORDERED: DEXTROSE 50% 50 ML VIAL IV PRN (17:46)
[2021-02-27] MEDS ORDERED: DEXTROSE 31 GM ORAL.SUSP PO PRN (17:46)
[2021-02-27] MEDS ORDERED: SENNOSIDES 1 TABLET PO PRN (17:46)
[2021-02-27] MEDS ORDERED: POTASSIUM CHLORIDE 40 MEQ in DEXTROSE 5% IN WATER 500 ML IV PRN (17:46)
[2021-02-27] MEDS: CEFEPIME 1 GM VIAL IV SCH (18:06)
[2021-02-27] MEDS: INSULIN LISPRO 1 UNIT/0.01 ML UNIT SQ SCH ×2 (18:18→20:53)
[2021-02-27] MEDS ORDERED: traMADol 50 MG TABLET PO PRN (19:40)
[2021-02-27] MEDS ORDERED: BISACODYL 5 MG TABLET PO PRN (19:40)
[2021-02-27] MEDS ORDERED: CLOTRIMAZOLE 10 MG TROCHE PO PRN (19:40)
[2021-02-27] MEDS ORDERED: ENALAPRILAT 1.25 MG/ML VIAL IV PRN (19:41)
[2021-02-27] MEDS: traZODone HCL 50 MG TABLET PO SCH (20:46)
[2021-02-27] MEDS: DOCUSATE SODIUM 100 MG CAPSULE PO SCH (20:46)
[2021-02-27] MEDS: 0.9 % SODIUM CHLORIDE 10 ML SYRINGE IV SCH (20:57)
--- NOTE | 2021-02-28 04:22 | Cat Scan Report ---
CLINICAL INFORMATION: Hematuria. UTI COMPARISON: None. TECHNIQUE: IV and oral contrast were withheld per standard protocol. .625mm helical slices were obtained from the diaphragm through the subtrochanteric regions. Following reconstruction, 2.5 mm sagittal, coronal, and axial reformations were processed. Exam was reviewed in bone, soft tissue, and lung windows/algorithm. The exam was performed using radiation dose optimization techniques including, but not limited to, automated exposure control, adjustment of the mA and/or kV according to patient size and use of iterative reconstruction technique. FINDINGS: Pulmonary parenchymal windows show chronic bronchitis and tubular bronchiectasis in the segmental subsegmental lower lobe bronchi - as previously seen. Minimal scattered scarring appreciated. A 5 mm well-circumscribed nodule in the posterior basilar segment of the left lower lobe is new from the previous study. There are no effusions. The visualized heart is grossly normal Abdominal images show a 13 mm low-attenuation lesion in the subdiaphragmatic left hepatic lobe. No other hepatic abnormality. Gallbladder is surgically absent. The hepatic and common bile ducts are normal CBD is 5 mm. The noncontrasted pancreas, adrenal glands, kidneys, spleen and aorta are normal in size configuration and attenuation without focal lesion. There is no free air, free fluid or adenopathy. Pelvic images show urinary bladder is normal. Normal-appearing postmenopausal uterus spans 6.5 cm. Region of both postmenopausal ovaries are normal. Large amount of stool is present within the colon but the large bowel, appendix region small bowel and stomach are, otherwise, grossly normal. Bone windows show moderate chronic L5 compression fracture - stable. IMPRESSION: 1. No acute disease. 2. Large amount of colonic stool gas particularly the transverse colon. 3. Tubular bronchiectasis in the segmental and subsegmental lower lobe bronchi predisposing to recurrent infection. Scattered scarring noted. 4. 5 mm nodule posterior basilar segment left lower lobe - new from previous exam suggesting one year follow-up chest CT reevaluation. 5. 13 mm low-attenuation lesion in the subdiaphragmatic left hepatic lobe - likely a cyst Interpreted and Authenticated by: Deepak Sherwood 02/28/21
[2021-02-28] MEDS: 0.9 % SODIUM CHLORIDE 10 ML SYRINGE IV SCH ×3 (04:35→21:33)
[2021-02-28 06:54] LABS: Basophils # (Auto) 0.01 K/mcL (0.00-0.20); Basophils % (Auto) 0.1 % (0.0-2.0); Eosinophils % (Auto) 3.3 % (0.0-7.0); Hematocrit 42.4 % (36.0-48.0); Hemoglobin 12.4 g/dL (12.0-15.0); Lymphocytes # (Auto) 1.75 K/mcL (1.50-4.80); Lymphocytes % (Auto) 19.4 % (15.0-49.0); Mean Corpuscular HGB Conc 29.2 g/dL (31.0-36.0); Mean Platelet Volume 12.6 fL (7.4-10.4); Monocytes # (Auto) 0.69 K/mcL (0.10-0.90); Monocytes % (Auto) 7.7 % (1.0-12.0); Neutrophils % (Auto) 69.5 % (38.0-78.0); Platelet Count 186 K/mcL (140-440); RBC 4.24 M/mcL (4.00-5.20); Red Cell Distribution Width 12.9 % (11.5-14.5)
--- NOTE | 2021-02-28 07:17 | Internal Med Progress Note ---
SUBJECTIVE Subjective Patient information: Note initiated : 02/28/21 at 7:13 am Service Date, if different from initiated Date: [] Patient: Trevor Garcia a 70 y/o F admitted on 02/27/21 for urogenital. Chief Complaint: [] Interval history: History of present illness: Ms. Garcia is a 70 year old F Patient presents feeling ill dysuria feel like a urinary tract infection is back. In the ED she was evaluated found of a mild leukocytosis she had elevated blood glucose around 400. Her analysis was consistent with infectious findings. She was treated several weeks ago for urinary tract infection with E. coli and pansensitive she says she finished the 10-day course and then sometime thereafter started having dysuria and discomfort in [place] she had a urinary tract infection again. She says she does not adhere to diabetic diet. Her sugars she says typically her under 200 but they have been 2-4 100s lately. I see in the past she has grown Pseudomonas in her urine. I suspect that the recurrence is secondary to her poor control of her diabetes and adherence to diet or a second bacteria such as Pseudomonas has entered the equation. 02/28 Feeling better. No overnight event or new complaints. Awaiting urine culture. Review of Systems: denies headache/fever/chills/nausea/vomiting/chest or abdominal pain/cough/dyspnea/diarrhea. Otherwise see above. Constitutional Vitals: Vital Signs Temp Pulse Resp BP Pulse Ox 98.1 F 65 20 143/66 90 02/28/21 04:16 02/28/21 04:16 02/28/21 04:16 02/28/21 04:16 02/28/21 04:16 Period Temp Pulse Resp BP Sys/Bailey Pulse Ox Last 24 Hr 96.9 F-98.4 F 45-86 20-22 109-170/36-107 88-100 Intake and Output 02/27/21 02/28/21 02/28/21 21:59 05:59 13:59 Intake Total 500 800 Output Total 602 Balance 500 198 Weight 83.96 kg Intake & Output: Intake & Output 02/27/21 02/28/21 02/28/21 21:59 05:59 13:59 Intake Total 500 800 Output Total 602 Balance 500 198 Weight 83.96 kg Intake: IV 500 Sodium Chloride 0.9% 500 ml @ 500 Wide Open IV BOLUS ONE Rx#: [id number] Oral 800 Output: Void Amount 600 # of times incontinent of urine 2 Other: Urine Appearance Clear Clear Urine Color Bright Yellow Bright Yellow Urine Odor Normal Normal Exam: General: Alert, Awake, No acute Distress, obese Eyes/N/T: EOMI, Head/Neck: neck supple, CV: RRR, No murmurs, Pulm: Clear b/l, no wheezing/rhonchi/rales Abd: soft, nontender, +BS x4 Ext: no clubbing/cyanosis, trace b/l LE edema Neuro: Alert, no focal deficits, moves all extremities, Skin: warm/dry OBJ DATA Labs CBC & Chem 7: 02/28/21 05:12 02/28/21 05:12 Labs: Abnormal Lab Results 02/28/21 02/27/21 02/27/21 05:12 12:05 11:49 WBC 11.8 H MCV 100.7 H MCHC 29.2 L 28.8 L MPV 12.6 H 12.5 H Seg Neutrophils % 88 H Lymphocytes % 6 L RBC Morphology Abnormal A Macrocytosis Few A Carbon Dioxide Creatinine Glucose Calcium Urine Appearance Cloudy A Urine Protein 30 A Urine Glucose (UA) >=500 A Urine Occult Blood >=1.0 A Ur Leukocyte Esterase 500 A Urine RBC > 182 H Urine WBC > 182 H 02/27/21 11:48 WBC MCV MCHC MPV Seg Neutrophils % Lymphocytes % RBC Morphology Macrocytosis Carbon Dioxide 34 H Creatinine 1.2 H Glucose 400 H Calcium 8.4 L Urine Appearance Urine Protein Urine Glucose (UA) Urine Occult Blood Ur Leukocyte Esterase Urine RBC Urine WBC Meds: Medications Albuterol/Ipratropium (Ipratropium/Albuterol 3 Ml Ampul.Neb) 3 ml NEB Q4HP PRN PRN Reason: Shortness Of Breath Bisacodyl (Bisacodyl 5 Mg Tablet) 5 mg PO PRN PRN PRN Reason: Constipation Cefepime HCl (Cefepime 1 Gm Vial) 1 gm IV Q12H [facility]; Protocol Last Admin: 02/27/21 18:06 Dose: 1 gm Documented by: Clonazepam (Clonazepam 0.5 Mg Tablet) 0.5 mg PO QDAY [facility] Clotrimazole (Clotrimazole 10 Mg Kristen) 10 mg PO PRN PRN PRN Reason: yeast Dextrose (Dextrose 50% 50 Ml Vial) 0 ml IV UD PRN PRN Reason: Hypoglycemia Diagnostic Test (Pha) (Accu-Chek 1 Each Strip) 1 each FS [facility] Last Admin: 02/27/21 20:47 Dose: 1 each Documented by: Diltiazem HCl (Diltiazem 120 Mg Cap.Xl.24h) 120 mg PO QAM [facility] Docusate Sodium (Docusate Sodium 100 Mg Capsule) 100 mg PO BID [facility] Last Admin: 02/27/21 20:46 Dose: 100 mg Documented by: Enalaprilat (Enalaprilat 1.25 Mg/Ml Vial) 0 mg IV Q2HP PRN PRN Reason: Hypertension Last Admin: 02/28/21 00:37 Dose: 1.25 mg Documented by: Furosemide (Furosemide 20 Mg Tablet) 20 mg PO DAILY [facility] Glucose (Dextrose 31 Gm Oral.Susp) 15 gm PO PRN PRN PRN Reason: Hypoglycemia Potassium Chloride 40 meq/ (Dextrose) 520 mls @ 130 mls/hr IV UD PRN PRN Reason: Potassium < 3 Magnesium Sulfate (Magnesium Sulfate) 2 gm in 50 mls @ 50 mls/hr IV UD PRN PRN Reason: Magnesium </= 1.6 Insulin Glargine (Insulin Glargine, Human 1 Unit/0.01 Ml) 28 unit SQ QDAY [facility] Insulin Human Lispro (Insulin Lispro 1 Unit/0.01 Ml Unit) 0 unit SQ ACHS [facility]; Protocol Last Admin: 02/27/21 20:53 Dose: 6 units Documented by: Ondansetron HCl (Ondansetron 4 Mg/2 Ml Vial) 4 mg IV Q4HP PRN PRN Reason: Nausea And Vomiting Pantoprazole Sodium (Pantoprazole 40 Mg Tablet) 40 mg PO QAMAC [facility] Paroxetine HCl (Paroxetine 20 Mg Tablet) 40 mg PO DAILY [facility] Fluticasone- Umeclidin-Vilanter [ Trelegy Ellipta] Inh 1 dose INH Q24H [facility] Polyethylene Glycol (Polyethylene Glycol 3350 17 Gm Packet) 17 gm PO DAILYP PRN PRN Reason: Constipation Potassium Chloride (Potassium Chloride 20 Meq Tablet) 40 meq PO UD PRN PRN Reason: Potssium is 3-3.5 Potassium Chloride (Potassium Chloride 20 Meq Tablet) 40 meq PO UD PRN PRN Reason: Potassium < 3 Prednisone (Prednisone 10 Mg Tablet) 10 mg PO [facility] Senna (Sennosides 1 Tablet) 2 tab PO DAILYP PRN PRN Reason: Constipation Last Admin: 02/27/21 20:46 Dose: 2 tab Documented by: Sodium Chloride (0.9 % Sodium Chloride 10 Ml Syringe) 10 ml IV Q8 [facility] Last Admin: 02/28/21 04:35 Dose: 10 ml Documented by: Tramadol HCl (Tramadol 50 Mg Tablet) 50 mg PO PRN PRN; Protocol PRN Reason: Pain Trazodone HCl (Trazodone Hcl 50 Mg Tablet) 50 mg PO HS [facility] Last Admin: 02/27/21 20:46 Dose: 50 mg Documented by: A/P Narrative A/P Narrative: A: *Recurrent UTI: Failed outpatient therapy -last UC with e.coli but has grown pseudomonas in past; additionally she is poorly controlled DM and on prednisone -leukocytosis resolved *Hematuria: 2/2 likely above, CT KUB no acute *DM w/Hyperglycemia: poorly controlled, pt does not adhere to diabetic diet -A1c 10.0 *CKD III: *Anemia, chronic: *COPD(3L@home): on prednisone 10mg qd *HTN: On diltiazem *RENE w/CPAP: *Depression/anxiety: *Obesity: *GERD: * P: -will cover for pseuomonas with cefepime, pending UC -home insulin(titrate as needed), SSI. diabetes education -home IH's, prn nebs -cont home prednisone -f/u CT chest 1-year for incidental 5mm lung nodule -pt/ot -ppx: Lovenox DNR Time Spent With Patient Time: Total time spent is greater than 50% in coordination of care (as documented) at patient's floor/unit and/or counseling patient: QUALITY VTE Deep Vein Thrombosis/Pulmonary Embolism Present on Admission: No
[2021-02-28 08:10] LABS: ALT/SGPT 16 U/L (<40); AST/SGOT 13 U/L (<32); Albumin 3.3 gm/dL (3.2-5.2); Albumin/Globulin Ratio 1.2 (1.0-2.3); Alkaline Phosphatase 87 U/L (39-117); Bilirubin,Direct < 0.2 mg/dL (0-0.3); Bilirubin,Total 0.2 mg/dL (0.1-1.0); Blood Urea Nitrogen 19 mg/dL (8-23); Calcium 9.1 mg/dL (8.6-10.4); Carbon Dioxide 37 mmol/L (22-30); Chloride 98 mmol/L (96-108); Globulin 2.7 gm/dL (2.2-3.7); Glomerular Filtration Rate 56; Glucose 141 mg/dL (70-105); Lactate Dehydrogenase 240 U/L (135-225); Phosphorous 3.3 mg/dL (2.5-4.5); Triglycerides 199 mg/dL (<150); Uric Acid 3.4 mg/dL (2.5-8.0)
[2021-02-28] MEDS ORDERED: [UNRECOGNIZED DRUG - OTHER] INH SCH (09:00)
[2021-02-28] MEDS ORDERED: INSULIN GLARGINE, HUMAN 1 UNIT/0.01 ML SQ SCH (09:00)
[2021-02-28] MEDS: INSULIN LISPRO 1 UNIT/0.01 ML UNIT SQ SCH ×4 (09:25→20:06)
[2021-02-28] MEDS ORDERED: SENNOSIDES 1 TABLET PO ONE (09:27)
[2021-02-28] MEDS ORDERED: POLYETHYLENE GLYCOL 3350 17 GM PACKET PO ONE (09:27)
--- NOTE | 2021-02-28 10:05 | Discharge Summary ---
Discharge Provider Provider Patient information: Note initiated : 02/28/21 at 10:04 am Service Date, if different from initiated Date: [] Patient: Trevor Garcia 70 y/o F admitted on 02/27/21 for urogenital. Chief Complaint: [] Date of admission: 02/27/21 16:25 Discharge date: 03/01/21 Primary care physician: Yola Paul Consults: 02/27/21 15:17 Consult to Physician [CONS] Stat Comment: Consulting Provider: Gen Linares Reason For Exam: Physician to Consult Discharge Meds Discharge Medications Home Medications pantoprazole 40 mg PO QAMAC 06/06/15 [History Confirmed 02/27/21 Last Taken 02/27/21 08:00] paroxetine HCl 40 mg PO DAILY 06/06/15 [History Confirmed 02/27/21 Last Taken 02/27/21 08:00] trazodone 50 mg PO HS 06/06/15 [History Confirmed 02/27/21 Last Taken 02/26/21 21:00] tramadol 50 mg tablet 50 mg PO Q4HP PRN 06/19/18 [History Confirmed 02/28/21 Last Taken 02/24/21] clonazepam 0.5 mg tablet 0.5 mg PO QDAY tab 12/07/18 [History Confirmed 02/27/21 Last Taken 02/27/21 08:00] alendronate 70 mg tablet 70 mg PO QWEEK 02/17/19 [History Confirmed 02/27/21 Last Taken 02/25/21 08:00] loratadine 10 mg capsule 10 mg PO QDAY 12/14/19 [History Confirmed 02/27/21 Last Taken 02/27/21 08:00] diltiazem HCl 120 mg capsule,extended release 24 hr, controlled 120 mg PO QAM #30 cap 06/06/20 [Rx Confirmed 02/27/21 Last Taken 02/27/21 08:00] fluticasone fur. 100 mcg-umeclid 62.5 mcg-vilant 25 mcg inhalat.powder 1 inh INHALATION Q24H #60 each 11/24/20 [Rx Confirmed 02/27/21 Last Taken 02/27/21 08:00] 3lpm with CPAP and home vent #1 ea 12/11/20 [History Confirmed 02/27/21 Last Taken Unknown] acetaminophen 500 mg capsule 500 mg PO PRN PRN 12/11/20 [History Confirmed 02/27/21 Last Taken 02/27/21 08:00] cholecalciferol (vitamin D3) 25 mcg (1,000 unit) capsule 25 mcg PO QDAY 12/11/20 [History Confirmed 02/27/21 Last Taken 02/27/21 08:00] insulin glargine U-300 conc 300 unit/mL (1.5 mL) subcutaneous pen 28 unit SUB-Q QDAY ml 12/11/20 [History Confirmed 02/27/21 Last Taken 02/27/21 08:00] mecobalamin (vitamin B12) 1,000 mcg chewable tablet 1,000 mcg PO QDAY 12/11/20 [History Confirmed 02/27/21 Last Taken 02/27/21 08:00] ondansetron HCl 4 mg tablet 4 mg PO PRN PRN 12/11/20 [History Confirmed 02/27/21 Last Taken 02/28/20] furosemide 20 mg PO DAILY 02/04/21 [History Confirmed 02/27/21 Last Taken 02/27/21 08:00] prednisone 10 mg PO QDAY #30 tab 02/04/21 [Rx Confirmed 02/27/21 Last Taken 0 02/27/21 08:00] bisacodyl [Dulcolax (bisacodyl)] 5 mg PO PRN PRN 02/27/21 [History Confirmed 02/27/21 Last Taken 02/25/21 08:00] ferrous sulfate 325 mg PO QAM 02/27/21 [History Confirmed 02/27/21 Last Taken 02/27/21 08:00] guar gum 3 g PO QAM 02/27/21 [History Confirmed 02/27/21 Last Taken 02/27/21 08:00] insulin aspart U-100 See Protocol SUBCUT ACHS #15 ml MDD 40 02/28/21 [Rx Last Taken Unknown] ciprofloxacin HCl 500 mg PO Q12H #20 tab 03/01/21 [Rx Last Taken Unknown] COURSE Hospital Course Hospital course: Interval history: History of present illness: Ms. Garcia is a 70 year old F Patient presents feeling ill dysuria feel like a urinary tract infection is back. In the ED she was evaluated found of a mild leukocytosis she had elevated blood glucose around 400. Her analysis was consistent with infectious findings. She was treated several weeks ago for urinary tract infection with E. coli and pansensitive she says she finished the 10-day course and then sometime thereafter started having dysuria and discomfort in [place] she had a urinary tract infection again. She says she does not adhere to diabetic diet. Her sugars she says typically her under 200 but they have been 2-4 100s lately. I see in the past she has grown Pseudomonas in her urine. I suspect that the recurrence is secondary to her poor control of her diabetes and adherence to diet or a second bacteria such as Pseudomonas has entered the equation. 02/28 Feeling better. No overnight event or new complaints. Awaiting urine culture. 03/01 Doing well no overnight event new complaints. Stable for discharge. Counseled her on diabetic diet and will provide a sliding scale coverage temporarily so she can keep track of units needed and bring to PCP. A: *Recurrent UTI: Failed outpatient therapy -last UC with e.coli but has grown pseudomonas in past; additionally she is poorly controlled DM and on prednisone -leukocytosis resolved *Hematuria: 2/2 likely above, CT KUB no acute *DM w/Hyperglycemia: poorly controlled, pt does not adhere to diabetic diet -A1c 10.0 *CKD III: *Anemia, chronic: *COPD(3L@home): on prednisone 10mg qd *HTN: On diltiazem *RENE w/CPAP: *Depression/anxiety: *Obesity: *GERD: Discharge diagnosis: Recurrent UTI failed outpatient therapy hematuria diabetes hyperglycemia Secondary discharge diagnosis: Chronic kidney knees and chronic anemia COPD hypertension obstructive sleep apnea depression anxiety obesity GERD Time Spent with Patient Time attestation: Total time spent providing and/or coordinating discharge services: Time spent: Greater than 30 minutes EXAM Constitutional Vitals: Temp Pulse Resp BP Pulse Ox 97.6 F 81 20 159/71 95 02/28/21 07:30 02/28/21 07:30 02/28/21 07:30 02/28/21 07:30 02/28/21 07:53 Discharge Data Data Completed and Pending Labs on day of discharge: Labs from last 24 hours 02/28/21 02/28/21 02/27/21 05:12 05:12 12:05 WBC 9.0 RBC 4.24 Hgb 12.4 Hct 42.4 MCV 100.0 MCH 29.2 MCHC 29.2 L RDW 12.9 Plt Count 186 MPV 12.6 H Neut % (Auto) 69.5 Lymph % (Auto) 19.4 [place] % (Auto) 7.7 Eos % (Auto) 3.3 Baso % (Auto) 0.1 Lymph # (Auto) 1.75 [place] # (Auto) 0.69 Eos # (Auto) 0.30 Baso # (Auto) 0.01 Seg Neutrophils % Lymphocytes % Monocytes % (Manual) Eosinophils % (Manual) Absolute Neutrophils 6.25 Platelet Estimate RBC Morphology Macrocytosis VBG Lactic Acid Sodium 140 Potassium 4.2 Chloride 98 Carbon Dioxide 37 H Anion Gap 5.0 L BUN 19 Creatinine 1.0 GFR Calculation 56 Glucose 141 H Uric Acid 3.4 Calcium 9.1 Phosphorus 3.3 Magnesium 2.2 Total Bilirubin 0.2 Direct Bilirubin < 0.2 GGT 21 AST 13 ALT 16 Alkaline Phosphatase 87 Lactate Dehydrogenase 240 H Total Protein 6.0 Albumin 3.3 Globulin 2.7 Albumin/Globulin Ratio 1.2 Triglycerides 199 H Urine Color Yellow Urine Appearance Cloudy A Urine pH 6.0 Ur Specific [place] 1.016 Urine Protein 30 A Urine Glucose (UA) >=500 A Urine Ketones Negative Urine Occult Blood >=1.0 A Urine Nitrate Negative Urine Bilirubin Negative Urine Urobilinogen Negative Ur Leukocyte Esterase 500 A Urine RBC > 182 H Urine WBC > 182 H Ur Squamous Epith Cells < 1 Urine Bacteria None Ur Culture Indicated? yes 02/27/21 02/27/21 02/27/21 11:49 11:48 11:48 WBC 11.8 H RBC 4.42 Hgb 12.8 Hct 44.5 MCV 100.7 H MCH 29.0 MCHC 28.8 L RDW 12.9 Plt Count 176 MPV 12.5 H Neut % (Auto) Lymph % (Auto) [place] % (Auto) Eos % (Auto) Baso % (Auto) Lymph # (Auto) [place] # (Auto) Eos # (Auto) Baso # (Auto) Seg Neutrophils % 88 H Lymphocytes % 6 L Monocytes % (Manual) 5 Eosinophils % (Manual) 1 Absolute Neutrophils Platelet Estimate Normal RBC Morphology Abnormal A Macrocytosis Few A VBG Lactic Acid 1.2 Sodium 138 Potassium 4.6 Chloride 96 Carbon Dioxide 34 H Anion Gap 8.0 BUN 20 Creatinine 1.2 H GFR Calculation 45 Glucose 400 H Uric Acid Calcium 8.4 L Phosphorus Magnesium Total Bilirubin < 0.2 Direct Bilirubin GGT AST 16 ALT 21 Alkaline Phosphatase 98 Lactate Dehydrogenase Total Protein 6.5 Albumin 3.7 Globulin 2.8 Albumin/Globulin Ratio 1.3 Triglycerides Urine Color Urine Appearance Urine pH Ur Specific [place] Urine Protein Urine Glucose (UA) Urine Ketones Urine Occult Blood Urine Nitrate Urine Bilirubin Urine Urobilinogen Ur Leukocyte Esterase Urine RBC Urine WBC Ur Squamous Epith Cells Urine Bacteria Ur Culture Indicated? Preliminary micro results at discharge 02/27/21 12:05 Urine Culture - Preliminary Urine - Clean Void Mid-Stream Discharge Plan Patient/Caregiver Discharge Instructions Activity: increase activity as tolerated and resume usual activities as tolerated Diet: Consistent Carbohydrate Instructions: Diabetic Hyperglycemia (ED), Urinary Tract Infection in Older Adults (ED) Activity Restrictions/Additional Instructions: -f/u CT chest 1-year for incidental 5mm lung nodule Bring log of blood sugar readings to next PCP appointment Prescriptions: New insulin aspart U-100 100 unit/mL (3 mL) insulin pen See Protocol unit subcut ACHS MDD 40 Qty: 15 RF: 0 ciprofloxacin HCl 250 mg tablet 500 mg PO Q12H Qty: 20 RF: 0 Continued Trelegy Ellipta 100-62.5-25 mcg blister with device 1 inh INHALATION Q24H Qty: 60 RF: 6 clonazepam 0.5 mg tablet 0.5 mg PO QDAY RF: 0 diltiazem HCl 120 mg capsule,ext.rel 24h degradable 120 mg PO QAM Qty: 30 RF: 11 loratadine 10 mg capsule 10 mg PO QDAY RF: 0 acetaminophen 500 mg capsule 500 mg PO PRN PRN (Reason: Pain) RF: 0 cholecalciferol (vitamin D3) 25 mcg (1,000 unit) capsule 25 mcg PO QDAY RF: 0 mecobalamin (vitamin B12) 1,000 mcg tablet,chewable 1,000 mcg PO QDAY RF: 0 ondansetron HCl 4 mg tablet 4 mg PO PRN PRN (Reason: Nausea) RF: 0 (DME) 3lpm with CPAP and home vent Qty: 1 RF: 0 alendronate 70 mg tablet 70 mg PO QWEEK RF: 0 trazodone 50 MG tablet 50 mg PO HS RF: 0 pantoprazole 40 MG tablet,delayed release (DR/EC) 40 mg PO QAMAC RF: 0 paroxetine HCl 40 MG tablet 40 mg PO DAILY RF: 0 tramadol 50 mg tablet 50 mg PO Q4HP PRN (Reason: Pain) RF: 0 furosemide 20 mg tablet 20 mg PO DAILY RF: 0 prednisone 10 mg tablet 10 mg PO QDAY Qty: 30 RF: 0 bisacodyl [Dulcolax (bisacodyl)] 5 mg Tablet,Delayed Release (Dr/Ec) 5 mg PO PRN PRN (Reason: Constipation) RF: 0 guar gum 1 gram Tablet,Chewable 3 g PO QAM RF: 0 ferrous sulfate 325 mg tablet 325 mg PO QAM RF: 0 No Action Rosy SoloStar U-300 Insulin 300 unit/mL (1.5 mL) insulin pen 28 unit SUB-Q QDAY RF: 0 Follow Up Plan Follow up with: Yola Paul MD [Primary Care Provider] - Patient Disposition: Home, Self-Care Prognosis: Fair Overall status at discharge: patient is progressing back to baseline Discharge Orders: Discharge Order (Routine); Ordered 03/01/21 [facility]/Pulmonary Embolism Present on Admission: No
[2021-02-28] MEDS: DOCUSATE SODIUM 100 MG CAPSULE PO SCH ×2 (10:20→19:55)
[2021-02-28] MEDS: PARoxetine 20 MG TABLET PO SCH (10:20)
[2021-02-28] MEDS: FUROSEMIDE 20 MG TABLET PO SCH (10:20)
[2021-02-28] MEDS: DILTIAZEM 120 MG CAP.XL.24H PO SCH (10:20)
[2021-02-28] MEDS: clonazePAM 0.5 MG TABLET PO SCH (10:20)
[2021-02-28] MEDS: INSULIN GLARGINE, HUMAN 1 UNIT/0.01 ML SQ SCH (10:21)
[2021-02-28] MEDS: predniSONE 10 MG TABLET PO SCH (10:21)
[2021-02-28] MEDS: PANTOPRAZOLE 40 MG TABLET PO SCH (10:21)
[2021-02-28] MEDS: ENOXAPARIN 40 MG/0.4 ML SYRINGE SQ SCH (10:34)
[2021-02-28] MEDS: CEFEPIME 1 GM VIAL IV SCH ×2 (10:35→21:33)
[2021-02-28] MEDS: traZODone HCL 50 MG TABLET PO SCH (19:55)
[2021-03-01] MEDS: 0.9 % SODIUM CHLORIDE 10 ML SYRINGE IV SCH (06:32)
[2021-03-01] MEDS: INSULIN LISPRO 1 UNIT/0.01 ML UNIT SQ SCH (07:53)
[2021-03-01] MEDS: FUROSEMIDE 20 MG TABLET PO SCH (08:56)
[2021-03-01] MEDS: PARoxetine 20 MG TABLET PO SCH (08:56)
[2021-03-01] MEDS: CEFEPIME 1 GM VIAL IV SCH (08:56)
[2021-03-01] MEDS: clonazePAM 0.5 MG TABLET PO SCH (08:56)
[2021-03-01] MEDS: PANTOPRAZOLE 40 MG TABLET PO SCH (08:57)
[2021-03-01] MEDS: DOCUSATE SODIUM 100 MG CAPSULE PO SCH (08:57)
[2021-03-01] MEDS: predniSONE 10 MG TABLET PO SCH (08:57)
[2021-03-01] MEDS: ENOXAPARIN 40 MG/0.4 ML SYRINGE SQ SCH (08:58)
[2021-03-01] MEDS: DILTIAZEM 120 MG CAP.XL.24H PO SCH (08:58)
[2021-03-01] MEDS: INSULIN GLARGINE, HUMAN 1 UNIT/0.01 ML SQ SCH (09:16)
== END 2021-03-01 12:30 | disposition home or self-care (01) | DRG 690 ==
LOC: ED 10:27 → MEDSUR 16:25
PROVIDERS: ADMIT Internal Medicine; ATTEND Internal Medicine

== ENCOUNTER 2022-09-12 13:56 | Inpatient (IN) ==
[2022-09-12] MEDS ORDERED: IPRATROPIUM/ALBUTEROL 3 ML AMPUL.NEB NEB ONE (14:17)
[2022-09-12] MEDS ORDERED: methylPREDNISolone SOD SUCC 125 MG/2 ML VIAL IV ONE (14:17)
[2022-09-12] MEDS ORDERED: ALBUTEROL SULFATE 5 MG/ML NEB SOLUTION BOTTLE NEB ONE (14:17)
[2022-09-12 14:32] LABS: POC Calcium, Ionized 1.22 (1.16-1.32); POC Creatinine 1.2 (0.6-1.2); POC Potassium 4.9 (3.3-5.1)
--- NOTE | 2022-09-12 14:38 | XRay Report ---
HISTORY: Short of breath and congestion FINDINGS: There is a thin linear scar lateral to the left mid hilum. The lungs are otherwise clear. There is no evidence of pneumonia or mass. There are several old fractures posterolaterally in the right sixth seventh and eighth ribs. Comparison with the prior chest CT done on 03/14/21 shows the previously seen cavitary nodule in the right upper lobe is not identified today. The CT scan also revealed bronchiectasis and pulmonary fibrosis predominantly in the lower lobes. The bronchiectasis cannot be detected on today's x-ray. The heart size is normal. There is no congestive heart failure. IMPRESSION: No acute abnormality Interpreted and Authenticated by: Anant Nguyen 09/12/22
--- NOTE | 2022-09-12 14:51 | Emergency Department Note ---
SOB HPI General Chief Complaint: Shortness of Breath/Dyspnea Stated Complaint: Congestion Time Seen by Provider: 09/12/22 14:00 Source: patient Mode of arrival: wheelchair Limitations: no limitations History of Present Illness HPI Narrative: Narrative: Patient presents to the ED after being sent over from [facility] due to concerns about worsening shortness of breath. The provider at [facility] stated that patient's baseline ox requirement is 3 L but she was on 5 L there in the office. They also state that she was low satting at 91%. They wanted to do a chest x-ray there but they had a wait and the patient states that she rather come to the ED. Patient arrives here she states she does not know why she was here she was just told to come here. She reports decreased energy especially with exertion. She reports that she is post to use her trilogy at night and with naps but she has not been using it in several weeks because she has been lazy. She reports a history of COPD with baseline ox requirement of 3 L via nasal cannula. She denies fevers, chills, cough, sputum production, cardiac ch est pain, heart palpitations, diarrhea, melena, hematochezia. Patient does report some chest pressure and heaviness. She denies any pain range her left arm or neck. Patient denies any other alleviating or aggravating factors. Related Data Home Medications Medication Instructions Recorded Confirmed paroxetine HCl 40 mg tablet 40 mg PO DAILY 06/06/15 07/15/22 trazodone 50 mg tablet 50 mg PO HS sleep 06/06/15 07/15/22 tramadol 50 mg tablet 50 mg PO Q4HP PRN Pain 06/19/18 07/15/22 alendronate 70 mg tablet 70 mg PO QWEEK 02/17/19 07/15/22 3lpm with CPAP and home vent #1 ea 12/11/20 07/15/22 acetaminophen 500 mg capsule 500 mg PO PRN PRN Pain 12/11/20 07/15/22 albuterol sulfate 90 mcg/actuation 2 puff inhalation Q6H PRN 03/05/21 07/15/22 aerosol inhaler (Ventolin HFA) bisacodyl 5 mg tablet,delayed 5 mg PO ONCE PRN 03/05/21 07/15/22 release (Dulcolax (bisacodyl)) polyethylene glycol 3350 17 17 g PO QDAY PRN 03/05/21 07/15/22 gram/dose oral powder (Miralax) calcium 250 mg-D3 400 See Rx Instructions PO .COMPLEX 06/06/21 07/15/22 unit-magnesium 40 [id number]-Fj-copper-frida tablet cholecalciferol (vitamin D3) 25 2,000 unit PO QDAY 06/06/21 07/15/22 mcg (1,000 unit) capsule YB-nfatwwbahcvlx-WO oral liquid ea PO 06/07/21 07/15/22 Magnese PO QDAY 06/07/21 07/15/22 cyanocobalamin (vitamin B-12) 1,000 mcg PO QDAY 06/07/21 07/15/22 1,000 mcg tablet (Vitamin B-12) sennosides 8.6 mg capsule (senna) 8.6 mg PO QDAY PRN 06/07/21 07/15/22 prednisone 20 mg tablet 10 mg PO QDAY 03/13/22 07/15/22 insulin glargine U-300 conc 300 27 unit subcut QDAY 06/26/22 07/15/22 unit/mL (1.5 mL) subcutaneous pen (Toujeo SoloStar U-300 Insulin) Respiratory Support & Defense PO 07/15/22 Supplement Previous Rx's Medication Instructions Recorded insulin aspart U-100 100 unit/mL See Protocol subcut ACHS #15 mL 02/28/21 (3 mL) subcutaneous pen clotrimazole 10 mg zuri 10 mg mucous membrane 5XD PRN 12/27/21 thursh #70 tabs amlodipine 2.5 mg tablet 2.5 mg PO QDAY HTN #90 tabs 06/24/22 fluticasone fur. 100 mcg-umeclid 1 inh inhalation Q24H #60 ea 06/26/22 62.5 mcg-vilant 25 mcg inhalat.powder (Trelegy Ellipta) loratadine 10 mg capsule 10 mg PO QDAY #90 caps 06/26/22 prednisone 10 mg tablet 5 mg PO QDAY #30 tabs 06/26/22 Allergies Allergy/AdvReac Type Severity Reaction Status Date / Time hydrocodone Allergy Severe Swelling Verified 09/12/22 14:20 Amoxicillin AdvReac Mild Gastrointestinal Verified 09/12/22 14:20 Upset doxycycline AdvReac Mild bloating Verified 09/12/22 14:20 meperidine [From Demerol] AdvReac Mild Vomiting Verified 09/12/22 14:20 fragrances Allergy "plugs me Uncoded 07/15/22 13:35 up" narcotics AdvReac respiratory Uncoded 07/15/22 13:35 depression Review of Systems ROS ROS Narrative: Narrative: All systems ED: reviewed and negative except as stated. PFS Narrative Patient History Narrative: Narrative: Medical/Surgical/Family History All Active Problems (Updated 09/12/22 @ 14:55 by Miguel Manuel DO) Fall (Acute) Acute knee pain (Acute) Acute hypercapnic respiratory failure (Acute) Influenza (Acute) History of COVID-19 (Acute) COVID-19 (Acute) COPD exacerbation (Acute) Acute exacerbation of chronic obstructive pulmonary disease (Acute) Bronchiectasis (Chronic) Hyperkalemia (Chronic) Acquired skin tag (Chronic) Benign neoplasm of skin (Chronic) Lentigo (Chronic) Keratosis, seborrheic (Chronic) Hemangioma (Chronic) Glossitis (Chronic) COPD (chronic obstructive pulmonary disease) (Chronic) Allergic rhinitis (Chronic) Hypertension, essential (Chronic) Diabetes mellitus, type II (Chronic) GERD (gastroesophageal reflux disease) (Chronic) Accidental fall (Chronic) Pain in hand (Chronic) Right arm pain (Chronic) Situational depression (Chronic) Anxiety state (Chronic) Unspecified urinary incontinence (Chronic) Osteopenia (Chronic) Actinic keratosis (Chronic) History of cholecystectomy (Acute) CKD (chronic kidney disease), stage III (Chronic) Hypertensive renal disease (Chronic) Anemia (Chronic) Chronic kidney disease, stage IV (severe) (Chronic) Pneumonia (Acute) Respiratory failure (Acute) Sepsis (Acute) Hypercapnic respiratory failure (Acute) Acute respiratory failure (Acute) Acute respiratory failure with hypoxia and hypercapnia (Acute) Bronchitis (Acute) COPD exacerbation (Acute) Acute anxiety (Acute) Excessive cerumen in left ear canal (Acute) COPD exacerbation (Acute) Community acquired pneumonia (Acute) Gastroenteritis (Acute) Oxygen dependent (Chronic) End stage COPD (Chronic) Hypertension (Chronic) Hypercholesterolemia (Chronic) Bilateral hand pain (Chronic) Anxiety (Chronic) Dental caries (Acute) Common cold (Acute) Concussion without loss of consciousness (Acute) Contusion (Acute) Minor head injury (Acute) Injury of coccyx (Acute) Acute exacerbation of chronic obstructive airways disease (Acute) Right foot pain (Acute) Right ankle pain (Acute) Fracture of metatarsal of right foot, closed (Acute) COPD exacerbation (Acute) Hypoxemia (Chronic) Muscle spasm (Acute) CKD (chronic kidney disease), stage III (Chronic) Type 2 diabetes mellitus, with long-term current use of insulin (Chronic) Lung mass (Acute) Cavitary lesion of lung (Chronic) Fall (Acute) Low back pain (Acute) Hyperglycemia (Acute) Hypoxia (Chronic) Confusion (Acute) Hyperglycemia due to type 1 diabetes mellitus (Acute) Acute hypercapnic respiratory failure (Acute) Aspiration into airway (Chronic) Skin tear of right forearm without complication (Acute) UTI (urinary tract infection) (Acute) Right-sided back pain (Acute) Pneumonia (Acute) Pharyngitis (Acute) Thrush (Acute) Constipation (Acute) Yeast infection (Acute) Uncontrolled diabetes mellitus (Acute) Persistent microalbuminuria associated with type 2 diabetes mellitus (Acute) Polypharmacy (Chronic) Edema (Acute) Medical History Accidental fall Recurrent Acquired skin tag Actinic keratosis Acute anxiety Acute infective cystitis Acute renal failure (ARF) Acute respiratory failure Acute respiratory failure with hypoxia and hypercapnia Allergic rhinitis Anemia Anxiety Anxiety state Aspiration into airway Benign neoplasm of skin Bilateral hand pain Bronchiectasis Bronchitis Cavitary lesion of lung Chronic kidney disease, stage IV (severe) CKD (chronic kidney disease), stage III HTN and minimal proteinuria Hematuria in the past CKD (chronic kidney disease), stage III 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 and the effects of nonsteroidal anti-inflammatories Community acquired pneumonia COPD (chronic obstructive pulmonary disease) Severe COPD exacerbation COPD exacerbation Diabetes mellitus, type II given her egfr metformin was stopped started on glipizide adverse effects discussed advised to schedule visit with Dr Paul for further monitoring and management of CKD End stage COPD Excessive cerumen in left ear canal Gastroenteritis GERD (gastroesophageal reflux disease) Glossitis Hemangioma History of COVID-19 Hypercapnic respiratory failure Hypercholesterolemia Hyperkalemia Intermittent discussed low K diet ct furosemide which will help with kaliuresis will follow Hypertension Hypertension, essential Not at goal, given the extent of her pulmonary disease I would avoid beta- blockers Hypertensive renal disease Hypoxemia Keratosis, seborrheic Lentigo Benign Osteopenia Oxygen dependent Pain in hand Bilateral Pharyngitis Pneumonia Pneumonia Respiratory failure Right arm pain Right-sided back pain Sepsis Situational depression Thrush Type 2 diabetes mellitus, with long-term current use of insulin On insulin therapy and frequent steroids for pulmonary issues Unspecified urinary incontinence UTI (urinary tract infection) Surgical History History of cholecystectomy Family History Mother Pulmonary emphysema, Onset Age: 48 Unknown Type 2 diabetes mellitus Osteoporosis Malignant neoplasm Social History Smoking Status: Former smoker Alcohol Intake Frequency: former alcohol drinker Substance Use: does not use Exam Narrative Narrative: Narrative: General Limitations: no limitations General appearance: Present alert Respiratory Respiratory: Present respiratory distress and accessory muscle use; Absent rales/crackles, wheezes or stridor Cardiovascular Cardiovascular: Present regular rate and normal rhythm Adbominal Abdominal: Present soft; Absent tenderness Extremities Extremities: Present normal inspection and normal capillary refill; Absent pedal edema Neurological Neurological: Present alert and oriented X3 Psychiatric Psychiatric: Present normal affect and normal mood Skin Skin: Present warm (WNL) and intact Course Course Course Narrative: Patient was evaluated for complaints of shortness of breath. Chest x-ray obtained with image reviewed myself with no acute findings. EKG was unremarkable. Patient's D-dimer was normal as well as her troponin. Blood gas showed that patient's pH was 7.27 and her CO2 was 111. Patient was placed on BiPAP which she tolerated well. After a few hours on BiPAP repeat blood gas showed that her pH had normalized and her CO2 a come down to 89. Patient was negative for COVID-19 but she was positive for influenza. Patient does have acute respiratory failure with hypercapnia. Case was discussed with hospitalist who has agreed to admit the patient. He request that patient be given a dose of Tamiflu which has been administered. Plan of care was discussed with patient she expressed verbal understanding and agreement. Reevaluation(s) Reevaluation #1: Patient was hemodynamic stable. No new complaints at this time. Time: 15:08 Consultations Consultation #1: Case discussed with hospitalist, Dr. lockett, who is graciously excepted patient to be admitted to the hospital Time: 17:01 Vital Signs Vital signs: Vital Signs Temperature 98.6 F 09/12/22 14:04 Pulse Rate 90 09/12/22 14:04 Respiratory Rate 20 09/12/22 14:04 Blood Pressure 167/72 09/12/22 14:04 Pulse Oximetry (%) 91 09/12/22 14:04 Oxygen Delivery Method 09/12/22 14:04 Oxygen Flow Rate (L/min) 3 09/12/22 14:04 Temperature 98.6 F 09/12/22 14:04 Pulse Rate 96 H 09/12/22 16:33 Respiratory Rate 22 09/12/22 16:33 Blood Pressure 195/65 09/12/22 14:27 Pulse Oximetry (%) 94 09/12/22 16:33 Oxygen Delivery Method 09/12/22 16:33 Oxygen Flow Rate (L/min) 3 09/12/22 14:43 MDM MDM Narrative Medical decision making narrative: Narrative: Differential Diagnosis Differential Diagnosis: Pneumonia, COPD exacerbation, viral illness Medical Records Medical records reviewed: Yes I reviewed the patient's medical records. Lab Data Lab results reviewed: Yes I reviewed the patient's lab results. Result diagrams: 09/12/22 14:40 Labs: Lab Results 09/12/22 09/12/22 09/12/22 Range/Units 14:27 14:27 14:36 WBC (4.5-11.0) K/mcL RBC (3.59-5.38) M/mcL Hgb (11.2-15.7) g/dL Hct (34.1-44.9) % POC Hct 45.0 (36-48) MCV (80.0-100.0) fL MCH (26.0-34.0) pg MCHC (31.0-36.0) g/dL RDW (11.5-14.5) % Plt Count (140-440) K/mcL MPV (8.8-12.5) fL Immature Gran % (Auto) (0.0-0.5) % Neut % (Auto) (38.0-78.0) % Lymph % (Auto) (15.5-49.0) % Wells % (Auto) (1.0-12.0) % Eos % (Auto) (0.0-7.0) % Baso % (Auto) (0.0-2.0) % Lymph # (Auto) (1.50-4.80) K/mcL Wells # (Auto) (0.10-0.90) K/mcL Eos # (Auto) (0.00-0.70) K/mcL Baso # (Auto) (0.00-0.30) K/mcL Immature Gran # (0.00-0.05) K/mcl Absolute Neutrophils (1.80-8.00) K/mcL D-Dimer (0.27-0.50) ug/mL POC VBG pH 7.24 L (7.32-7.42) POC VBG pCO2 at Temp 111.2 H* (41-51) POC VBG pO2 24 L (25-40) POC VBG HCO3 47.2 H* (24-28) POC VBG Total CO2 > 50.0 H* (25-29) POC Venous O2 Sat 28.0 L (40-70) POC VBG Base Excess 20.0 H* (-2-2) VBG Lactic Acid 1.3 (0.5-2) POC Sodium 139 (133-145) POC Potassium 4.9 (3.3-5.1) POC Chloride 91 L (96-108) POC Total CO2 44.0 H* (22-30) POC BUN 29 H (6-20) POC Creatinine 1.2 (0.6-1.2) POC Glucose 277 H (70-105) POC WB Ioniz Calcium 1.22 (1.16-1.32) NT-Pro-B Natriuret Pep (<125.0) pg/mL Procalcitonin (<0.10) ng/mL POC Troponin I 0.04 (0.00-0.08) 09/12/22 09/12/22 09/12/22 Range/Units 14:40 14:40 14:40 WBC 15.3 H (4.5-11.0) K/mcL RBC 4.46 (3.59-5.38) M/mcL Hgb 13.0 (11.2-15.7) g/dL Hct 44.9 (34.1-44.9) % POC Hct (36-48) MCV 100.7 H (80.0-100.0) fL MCH 29.1 (26.0-34.0) pg MCHC 29.0 L (31.0-36.0) g/dL RDW 12.5 (11.5-14.5) % Plt Count 211 (140-440) K/mcL MPV 12.1 (8.8-12.5) fL Immature Gran % (Auto) 0.5 (0.0-0.5) % Neut % (Auto) 90.7 H (38.0-78.0) % Lymph % (Auto) 3.6 L (15.5-49.0) % Wells % (Auto) 4.4 (1.0-12.0) % Eos % (Auto) 0.7 (0.0-7.0) % Baso % (Auto) 0.1 (0.0-2.0) % Lymph # (Auto) 0.55 L (1.50-4.80) K/mcL Wells # (Auto) 0.68 (0.10-0.90) K/mcL Eos # (Auto) 0.11 (0.00-0.70) K/mcL Baso # (Auto) 0.02 (0.00-0.30) K/mcL Immature Gran # 0.08 H (0.00-0.05) K/mcl Absolute Neutrophils 13.89 H (1.80-8.00) K/mcL D-Dimer 0.42 (0.27-0.50) ug/mL POC VBG pH (7.32-7.42) POC VBG pCO2 at Temp (41-51) POC VBG pO2 (25-40) POC VBG HCO3 (24-28) POC VBG Total CO2 (25-29) POC Venous O2 Sat (40-70) POC VBG Base Excess (-2-2) VBG Lactic Acid (0.5-2) POC Sodium (133-145) POC Potassium (3.3-5.1) POC Chloride (96-108) POC Total CO2 (22-30) POC BUN (6-20) POC Creatinine (0.6-1.2) POC Glucose (70-105) POC WB Ioniz Calcium (1.16-1.32) NT-Pro-B Natriuret Pep (<125.0) pg/mL Procalcitonin 0.04 (<0.10) ng/mL POC Troponin I (0.00-0.08) 09/12/22 09/12/22 Range/Units 14:40 16:09 WBC (4.5-11.0) K/mcL RBC (3.59-5.38) M/mcL Hgb (11.2-15.7) g/dL Hct (34.1-44.9) % POC Hct (36-48) MCV (80.0-100.0) fL MCH (26.0-34.0) pg MCHC (31.0-36.0) g/dL RDW (11.5-14.5) % Plt Count (140-440) K/mcL MPV (8.8-12.5) fL Immature Gran % (Auto) (0.0-0.5) % Neut % (Auto) (38.0-78.0) % Lymph % (Auto) (15.5-49.0) % Wells % (Auto) (1.0-12.0) % Eos % (Auto) (0.0-7.0) % Baso % (Auto) (0.0-2.0) % Lymph # (Auto) (1.50-4.80) K/mcL Wells # (Auto) (0.10-0.90) K/mcL Eos # (Auto) (0.00-0.70) K/mcL Baso # (Auto) (0.00-0.30) K/mcL Immature Gran # (0.00-0.05) K/mcl Absolute Neutrophils (1.80-8.00) K/mcL D-Dimer (0.27-0.50) ug/mL POC VBG pH 7.34 (7.32-7.42) POC VBG pCO2 at Temp 83.6 H* (41-51) POC VBG pO2 39 (25-40) POC VBG HCO3 45.3 H* (24-28) POC VBG Total CO2 48.0 H* (25-29) POC Venous O2 Sat 66.0 (40-70) POC VBG Base Excess 20.0 H* (-2-2) VBG Lactic Acid 2.4 H (0.5-2) POC Sodium (133-145) POC Potassium (3.3-5.1) POC Chloride (96-108) POC Total CO2 (22-30) POC BUN (6-20) POC Creatinine (0.6-1.2) POC Glucose (70-105) POC WB Ioniz Calcium (1.16-1.32) NT-Pro-B Natriuret Pep 88.8 (<125.0) pg/mL Procalcitonin (<0.10) ng/mL POC Troponin I (0.00-0.08) ED POC Tests ED POC Tests: MILTON - Influenza A Positive MILTON - Influenza B Negative MILTON - SARS Antigen Negative Radiology Data Radiology results reviewed: Yes I reviewed the patient's radiology results. Radiology results narrative: Chest x-ray obtained with image reviewed myself, I agree with radiologist interpretation EKG Data EKG #1: EKG attestation: Yes I reviewed and interpreted this EKG. EKG shows normal: sinus rhythm Rate: normal Rhythm: NSR P waves: GRACIE Heart block present: None ST segment elevation in: None ST segment depression in: None QTc: normal QRS morphology: Present normal Interpretation: no acute changes Core Measures AMI Core Measures Followed: Yes Discharge Plan Patient/Caregiver Discharge Instructions Pt seen by FAMILY PRESERVATION CASEWORKER/PA only: No Clinical Impression: Acute hypercapnic respiratory failure, Influenza Patient Disposition: Xfer As Inpt ([facility]) Condition: Critical Follow up with: Yola Paul MD [Primary Care Provider] - Prescriptions: No Action clotrimazole 10 mg zuri 10 mg mucous membrane 5XD PRN (Reason: h) Qty: 70 0RF amlodipine 2.5 mg tablet 2.5 mg PO QDAY Qty: 90 0RF Toujeo SoloStar U-300 Insulin 300 unit/mL (1.5 mL) insulin pen 27 unit SUB-Q QDAY polyethylene glycol 3350 [Miralax] 17 gram/dose powder 17 g PO QDAY PRN albuterol sulfate [Ventolin HFA] 90 mcg/actuation HFA aerosol inhaler 2 puff inhalation Q6H PRN bisacodyl [Dulcolax (bisacodyl)] 5 mg tablet,delayed release (DR/EC) 5 mg PO ONCE PRN cozc-H5-kxectx-N1-Yl-Fp-frida 250 mg-400 unit -40 mg-5 mg tablet See Rx Instructions PO .COMPLEX Rx Instructions: D3 1,000 IU; Calcium 250 mg; Magnesium 500 mg PO BID; Magnese PO QDAY Rx Instructions: Vitamin D3 1,000 IU ; Calcium 250mg; Magnesium 500mg cyanocobalamin (vitamin B-12) [Vitamin B-12] 1,000 mcg tablet 1,000 mcg PO QDAY senna 8.6 mg capsule 8.6 mg PO QDAY PRN VF-ryhjtzwnrghbo-FU Liquid PO acetaminophen 500 mg capsule 500 mg PO PRN PRN (Reason: Pain) (DME) 3lpm with CPAP and home vent Qty: 1 cholecalciferol (vitamin D3) 25 mcg (1,000 unit) capsule 2,000 unit PO QDAY prednisone 20 mg tablet 10 mg PO QDAY Rx Instructions: Start 09-19-2021 Trelegy Ellipta 100-62.5-25 mcg blister with device 1 inh INHALATION Q24H Qty: 60 6RF prednisone 10 mg tablet 5 mg PO QDAY Qty: 30 0RF loratadine 10 mg capsule 10 mg PO QDAY Qty: 90 3RF alendronate 70 mg tablet 70 mg PO QWEEK Rx Instructions: Once a week on Sundays Respiratory Support & Defense Supplement PO trazodone 50 MG tablet 50 mg PO HS paroxetine HCl 40 MG tablet 40 mg PO DAILY tramadol 50 mg tablet 50 mg PO Q4HP PRN (Reason: Pain) insulin aspart U-100 100 unit/mL (3 mL) insulin pen See Protocol subcut ACHS MDD 40 Qty: 15 0RF Protocol: Insulin Sliding Scale, Med Condition: HUMALOG/NOVALOG SC SLIDING Dose/Route: SCALE Condition: FSBS < 70 Dose/Route: Give 4 Oz juice, or 15gm oral Instruction: Glucose, or 25ml D50W IV if Dose/Route: unable to take PO. Recheck in Instruction: 15 min and repeat if FSBS < 70 Condition: FSBS 71-140 Dose/Route: NO COVERAGE Condition: FSBS 141-170 Dose/Route: 2 UNITS Condition: FSBS 171-200 Dose/Route: 4 UNITS Condition: FSBS 201-250 Dose/Route: 6 UNITS Condition: FSBS 251-300 Dose/Route: 8 UNITS Condition: FSBS 301-350 Dose/Route: 10 UNITS Condition: FSBS 351-400 Dose/Route: 12 UNITS Condition: FSBS > 400 Dose/Route: 14 UNITS; REPEAT Q2H X2 Instruction: CONTINUE FOLLOWING SLIDING Condition: SCALE; IF STILL > 400; CALL Dose/Route: PHYSICIAN Rx Instructions: Sliding scale insulin: FSBS 71-140 no coverage FSBS 141-170 2 units FSBS 171-200 4 units FSBS 201-250 6 units FSBS 251-300 8 units FSBS 301-350 10 units FSBS 351-400 12 units FSBS >400 14 units; repeat testing in 2 hours and treat accordingly
[2022-09-12 15:33] LABS: Basophils # (Auto) 0.02 K/mcL (0.00-0.30); Basophils % (Auto) 0.1 % (0.0-2.0); Eosinophils # (Auto) 0.11 K/mcL (0.00-0.70); Eosinophils % (Auto) 0.7 % (0.0-7.0); Hematocrit 44.9 % (34.1-44.9); Lymphocytes # (Auto) 0.55 K/mcL (1.50-4.80); Lymphocytes % (Auto) 3.6 % (15.5-49.0); Mean Cell Volume 100.7 fL (80.0-100.0); Mean Platelet Volume 12.1 fL (8.8-12.5); Monocytes # (Auto) 0.68 K/mcL (0.10-0.90); Monocytes % (Auto) 4.4 % (1.0-12.0); Neutrophils % (Auto) 90.7 % (38.0-78.0); Platelet Count 211 K/mcL (140-440); RBC 4.46 M/mcL (3.59-5.38); Red Cell Distribution Width 12.5 % (11.5-14.5); WBC 15.3 K/mcL (4.5-11.0)
[2022-09-12 15:58] LABS: proBNP 88.8 pg/mL (<125.0)
[2022-09-12] MEDS ORDERED: 0.9 % SODIUM CHLORIDE 1,000 ML IV ONE (16:21)
[2022-09-12] MEDS ORDERED: OSELTAMIVIR PHOSPHATE 75 MG CAPSULE PO ONE (17:06)
--- NOTE | 2022-09-12 18:05 | Internal Med History&Physical ---
HPI History of Present Illness Patient information: Note initiated : 09/12/22 at 5:50 pm Service Date, if different from initiated Date: [] Patient: Trevor Garcia 72 y/o F admitted on for Congestion. Chief Complaint: [] History of present illness: Ms. 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 The patient is on prednisone 10 mg daily for COPD. The patient presented to the emergency department for worsening shortness of breath. She was evaluated earlier in the day by [facility] and found to be saturating in the low 90s, her oxygen supplementation was increased to 5 L/min and she was sent to the emergency department. In the emergency department, the patient was found to have respiratory acidosis with a pH of 7.24 and a PCO2 of 111.2. Patient was placed on BiPAP and 3 L/min nasal oxygen supplementation. Her PCO2 improved to 83.6 and her respiratory acidosis resolved. The patient tested positive for influenza A by Cece rapid antigen test. She tested negative for influenza B and SARS-CoV-2 by rapid antigen test. CBC was notable for a WBC of 15.3 and increased absolute neutrophils. [id number] complete metabolic panel was notable for a bicarbonate level of 44, creatinine of 1.2, glucose of 277. NT proBNP was normal, procalcitonin and D-dimer were normal. A chest x-ray was reported as showing no acute abnormality by radiology. 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 Hospital medicine was consulted for admission. Patient is agreeable for hospital admission. She says that she has recently not been using her trilogy ventilator as recommended. She says that she is not supposed to take any kind of nebulizer inhaler treatment. She is agreeable to hospital admission, states that her CODE STATUS is DNR/DNI. Review of systems Constitutional: Positive for fatigue, no fevers Eyes: no vision changes or pain Cardiovascular: As it of for bandlike bilateral lower chest discomfort Respiratory: Positive for shortness of breath Gastrointestinal: no abdominal pain, no nausea, vomiting, or diarrhea Genitourinary: no dysuria or difficulty voiding Musculoskeletal: no arthralgia or myalgia Integumentary: Positive for rash on right foot Neurological: no focal weakness or numbness Psychiatric: no anxiety or depression Physical exam Head: Atraumatic, normal inspection. Eyes: normal appearance, no scleral icterus. Neck: full ROM Respiratory: On BiPAP with 3 L/min nasal oxygen supplementation, does not appear to be in respiratory distress. Cardiovascular: normal rate and rhythm, S1, S2. GI/Abdominal: Obesely distended, soft, nontender, no guarding. Extremities: full range of motion, nontender. Neurological: CN II-XII intact, intact motor, intact sensation. Psychiatric: normal mood. Skin: Thin fragile skin, mild redness on medial aspect of right foot PFSH PFSH All Active Problems (Updated 09/12/22 @ 14:55 by Miguel Manuel DO) Fall (Acute) Acute knee pain (Acute) Acute hypercapnic respiratory failure (Acute) Influenza (Acute) History of COVID-19 (Acute) COVID-19 (Acute) COPD exacerbation (Acute) Acute exacerbation of chronic obstructive pulmonary disease (Acute) Bronchiectasis (Chronic) Hyperkalemia (Chronic) Acquired skin tag (Chronic) Benign neoplasm of skin (Chronic) Lentigo (Chronic) Keratosis, seborrheic (Chronic) Hemangioma (Chronic) Glossitis (Chronic) COPD (chronic obstructive pulmonary disease) (Chronic) Allergic rhinitis (Chronic) Hypertension, essential (Chronic) Diabetes mellitus, type II (Chronic) GERD (gastroesophageal reflux disease) (Chronic) Accidental fall (Chronic) Pain in hand (Chronic) Right arm pain (Chronic) Situational depression (Chronic) Anxiety state (Chronic) Unspecified urinary incontinence (Chronic) Osteopenia (Chronic) Actinic keratosis (Chronic) History of cholecystectomy (Acute) CKD (chronic kidney disease), stage III (Chronic) Hypertensive renal disease (Chronic) Anemia (Chronic) Chronic kidney disease, stage IV (severe) (Chronic) Pneumonia (Acute) Respiratory failure (Acute) Sepsis (Acute) Hypercapnic respiratory failure (Acute) Acute respiratory failure (Acute) Acute respiratory failure with hypoxia and hypercapnia (Acute) Bronchitis (Acute) COPD exacerbation (Acute) Acute anxiety (Acute) Excessive cerumen in left ear canal (Acute) COPD exacerbation (Acute) Community acquired pneumonia (Acute) Gastroenteritis (Acute) Oxygen dependent (Chronic) End stage COPD (Chronic) Hypertension (Chronic) Hypercholesterolemia (Chronic) Bilateral hand pain (Chronic) Anxiety (Chronic) Dental caries (Acute) Common cold (Acute) Concussion without loss of consciousness (Acute) Contusion (Acute) Minor head injury (Acute) Injury of coccyx (Acute) Acute exacerbation of chronic obstructive airways disease (Acute) Right foot pain (Acute) Right ankle pain (Acute) Fracture of metatarsal of right foot, closed (Acute) COPD exacerbation (Acute) Hypoxemia (Chronic) Muscle spasm (Acute) CKD (chronic kidney disease), stage III (Chronic) Type 2 diabetes mellitus, with long-term current use of insulin (Chronic) Lung mass (Acute) Cavitary lesion of lung (Chronic) Fall (Acute) Low back pain (Acute) Hyperglycemia (Acute) Hypoxia (Chronic) Confusion (Acute) Hyperglycemia due to type 1 diabetes mellitus (Acute) Acute hypercapnic respiratory failure (Acute) Aspiration into airway (Chronic) Skin tear of right forearm without complication (Acute) UTI (urinary tract infection) (Acute) Right-sided back pain (Acute) Pneumonia (Acute) Pharyngitis (Acute) Thrush (Acute) Constipation (Acute) Yeast infection (Acute) Uncontrolled diabetes mellitus (Acute) Persistent microalbuminuria associated with type 2 diabetes mellitus (Acute) Polypharmacy (Chronic) Edema (Acute) Medical History Accidental fall Recurrent Acquired skin tag Actinic keratosis Acute anxiety Acute infective cystitis Acute renal failure (ARF) Acute respiratory failure Acute respiratory failure with hypoxia and hypercapnia Allergic rhinitis Anemia Anxiety Anxiety state Aspiration into airway Benign neoplasm of skin Bilateral hand pain Bronchiectasis Bronchitis Cavitary lesion of lung Chronic kidney disease, stage IV (severe) CKD (chronic kidney disease), stage III HTN and minimal proteinuria Hematuria in the past CKD (chronic kidney disease), stage III 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 and the effects of nonsteroidal anti-inflammatories Community acquired pneumonia COPD (chronic obstructive pulmonary disease) Severe COPD exacerbation COPD exacerbation Diabetes mellitus, type II given her egfr metformin was stopped started on glipizide adverse effects discussed advised to schedule visit with Dr Paul for further monitoring and management of CKD End stage COPD Excessive cerumen in left ear canal Gastroenteritis GERD (gastroesophageal reflux disease) Glossitis Hemangioma History of COVID-19 Hypercapnic respiratory failure Hypercholesterolemia Hyperkalemia Intermittent discussed low K diet ct furosemide which will help with kaliuresis will follow Hypertension Hypertension, essential Not at goal, given the extent of her pulmonary disease I would avoid beta- blockers Hypertensive renal disease Hypoxemia Keratosis, seborrheic Lentigo Benign Osteopenia Oxygen dependent Pain in hand Bilateral Pharyngitis Pneumonia Pneumonia Respiratory failure Right arm pain Right-sided back pain Sepsis Situational depression Thrush Type 2 diabetes mellitus, with long-term current use of insulin On insulin therapy and frequent steroids for pulmonary issues Unspecified urinary incontinence UTI (urinary tract infection) Surgical History History of cholecystectomy Family History Mother Pulmonary emphysema, Onset Age: 48 Unknown Type 2 diabetes mellitus Osteoporosis Malignant neoplasm Social History marital status: occupational status: retired smoking status: Former smoker quit date: 11/02/99 smoking status stop date: 07/12/99 alcohol intake frequency: former alcohol drinker substance use type: does not use MEDS/ALLERGIES Home Medications and Allergies Home Medications Medication Instructions Recorded Confirmed Type paroxetine HCl 40 mg tablet 40 mg PO DAILY 06/06/15 07/15/22 History trazodone 50 mg tablet 50 mg PO HS sleep 06/06/15 07/15/22 History tramadol 50 mg tablet 50 mg PO Q4HP PRN Pain 06/19/18 07/15/22 History alendronate 70 mg tablet 70 mg PO QWEEK 02/17/19 07/15/22 History 3lpm with CPAP and home vent #1 ea 12/11/20 07/15/22 History acetaminophen 500 mg capsule 500 mg PO PRN PRN Pain 12/11/20 07/15/22 History insulin aspart U-100 100 unit/mL See Protocol subcut ACHS #15 mL 02/28/21 07/15/22 Rx (3 mL) subcutaneous pen albuterol sulfate 90 mcg/actuation 2 puff inhalation Q6H PRN 03/05/21 07/15/22 History aerosol inhaler (Ventolin HFA) bisacodyl 5 mg tablet,delayed 5 mg PO ONCE PRN 03/05/21 07/15/22 History release (Dulcolax (bisacodyl)) polyethylene glycol 3350 17 17 g PO QDAY PRN 03/05/21 07/15/22 History gram/dose oral powder (Miralax) calcium 250 mg-D3 400 See Rx Instructions PO .COMPLEX 06/06/21 07/15/22 History unit-magnesium 40 oo-P1-Ap-copper-frida tablet cholecalciferol (vitamin D3) 25 2,000 unit PO QDAY 06/06/21 07/15/22 History mcg (1,000 unit) capsule WA-hxjtpkahjxnyn-PP oral liquid ea PO 06/07/21 07/15/22 History Magnese PO QDAY 06/07/21 07/15/22 History cyanocobalamin (vitamin B-12) 1,000 mcg PO QDAY 06/07/21 07/15/22 History 1,000 mcg tablet (Vitamin B-12) sennosides 8.6 mg capsule (senna) 8.6 mg PO QDAY PRN 06/07/21 07/15/22 History clotrimazole 10 mg zuri 10 mg mucous membrane 5XD PRN 12/27/21 07/15/22 Rx thursh #70 tabs prednisone 20 mg tablet 10 mg PO QDAY 03/13/22 07/15/22 History amlodipine 2.5 mg tablet 2.5 mg PO QDAY HTN #90 tabs 06/24/22 07/15/22 Rx fluticasone fur. 100 mcg-umeclid 1 inh inhalation Q24H #60 ea 06/26/22 07/15/22 Rx 62.5 mcg-vilant 25 mcg inhalat.powder (Trelegy Ellipta) insulin glargine U-300 conc 300 27 unit subcut QDAY 06/26/22 07/15/22 History unit/mL (1.5 mL) subcutaneous pen (Toujeo SoloStar U-300 Insulin) loratadine 10 mg capsule 10 mg PO QDAY #90 caps 06/26/22 07/15/22 Rx prednisone 10 mg tablet 5 mg PO QDAY #30 tabs 06/26/22 07/15/22 Rx Respiratory Support & Defense PO 07/15/22 History Supplement Allergies Allergy/AdvReac Type Severity Reaction Status Date / Time hydrocodone Allergy Severe Swelling Verified 09/12/22 14:20 Amoxicillin AdvReac Mild Gastrointestinal Verified 09/12/22 14:20 Upset doxycycline AdvReac Mild bloating Verified 09/12/22 14:20 meperidine [From Demerol] AdvReac Mild Vomiting Verified 09/12/22 14:20 fragrances Allergy "plugs me Uncoded 07/15/22 13:35 up" narcotics AdvReac respiratory Uncoded 07/15/22 13:35 depression EXAM Constitutional Vitals: Temp Pulse Resp BP Pulse Ox O2 Del Method O2 Flow Rate 98.6 F 89 19 154/108 94 3 09/12/22 14:04 09/12/22 17:43 09/12/22 17:43 09/12/22 17:43 09/12/22 17:43 09/12/22 16:33 09/12/22 14:43 DATA Data Completed and Pending Labs: Labs from last 24 hours 09/12/22 09/12/22 09/12/22 16:09 14:40 14:40 WBC RBC Hgb Hct POC Hct MCV MCH MCHC RDW Plt Count MPV Immature Gran % (Auto) Neut % (Auto) Lymph % (Auto) Sawyer % (Auto) Eos % (Auto) Baso % (Auto) Lymph # (Auto) Sawyer # (Auto) Eos # (Auto) Baso # (Auto) Immature Gran # Absolute Neutrophils D-Dimer 0.42 POC VBG pH 7.34 POC VBG pCO2 at Temp 83.6 H* POC VBG pO2 39 POC VBG HCO3 45.3 H* POC VBG Total CO2 48.0 H* POC Venous O2 Sat 66.0 POC VBG Base Excess 20.0 H* VBG Lactic Acid 2.4 H POC Sodium POC Potassium POC Chloride POC Total CO2 POC BUN POC Creatinine POC Glucose POC WB Ioniz Calcium NT-Pro-B Natriuret Pep 88.8 Procalcitonin POC Troponin I 09/12/22 09/12/22 09/12/22 14:40 14:40 14:36 WBC 15.3 H RBC 4.46 Hgb 13.0 Hct 44.9 POC Hct MCV 100.7 H MCH 29.1 MCHC 29.0 L RDW 12.5 Plt Count 211 MPV 12.1 Immature Gran % (Auto) 0.5 Neut % (Auto) 90.7 H Lymph % (Auto) 3.6 L Sawyer % (Auto) 4.4 Eos % (Auto) 0.7 Baso % (Auto) 0.1 Lymph # (Auto) 0.55 L Sawyer # (Auto) 0.68 Eos # (Auto) 0.11 Baso # (Auto) 0.02 Immature Gran # 0.08 H Absolute Neutrophils 13.89 H D-Dimer POC VBG pH POC VBG pCO2 at Temp POC VBG pO2 POC VBG HCO3 POC VBG Total CO2 POC Venous O2 Sat POC VBG Base Excess VBG Lactic Acid POC Sodium POC Potassium POC Chloride POC Total CO2 POC BUN POC Creatinine POC Glucose POC WB Ioniz Calcium NT-Pro-B Natriuret Pep Procalcitonin 0.04 POC Troponin I 0.04 09/12/22 09/12/22 14:27 14:27 WBC RBC Hgb Hct POC Hct 45.0 MCV MCH MCHC RDW Plt Count MPV Immature Gran % (Auto) Neut % (Auto) Lymph % (Auto) Sawyer % (Auto) Eos % (Auto) Baso % (Auto) Lymph # (Auto) Sawyer # (Auto) Eos # (Auto) Baso # (Auto) Immature Gran # Absolute Neutrophils D-Dimer POC VBG pH 7.24 L POC VBG pCO2 at Temp 111.2 H* POC VBG pO2 24 L POC VBG HCO3 47.2 H* POC VBG Total CO2 > 50.0 H* POC Venous O2 Sat 28.0 L POC VBG Base Excess 20.0 H* VBG Lactic Acid 1.3 POC Sodium 139 POC Potassium 4.9 POC Chloride 91 L POC Total CO2 44.0 H* POC BUN 29 H POC Creatinine 1.2 POC Glucose 277 H POC WB Ioniz Calcium 1.22 NT-Pro-B Natriuret Pep Procalcitonin POC Troponin I A/P Narrative A/P Narrative: Assessment: 72-year-old female with a history of 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 -Empiric cefepime and azithromycin. -MRSA nasal PCR screen. -Sputum culture and Gram stain if able to collect. -BiPAP with oxygen supplementation, goal sats 88 to 92%. -Repeat lactic acid until downtrending. -The patient declines all nebulizer inhaler therapy. -Albuterol inhaler every 2 hours as needed. -Trelegy Ellipta, not formulary but family will bring to the hospital. -Lantus 20 units at bedtime and correction Humalog SSIhigh dose. -Home medication reconciliation, continue important meds. -Consistent carbohydrate diet. -DVT prophylaxis: Heparin SQ -CODE STATUS: DNR/DNI -Skin: Home when stable. Time Spent With Patient Time: Total time spent is greater than 50% in coordination of care (as documented) at patient's floor/unit and/or counseling patient:
[2022-09-12] MEDS ORDERED: ALBUTEROL SULFATE 200 PUFF INHALER INH PRN (19:19)
[2022-09-12] MEDS ORDERED: SENNOSIDES 1 TABLET PO PRN (19:19)
[2022-09-12] MEDS ORDERED: ONDANSETRON 4 MG/2 ML VIAL IV PRN (19:19)
[2022-09-12] MEDS ORDERED: LACTULOSE 20 GM/30 ML ORAL.SOL PO PRN (19:19)
[2022-09-12] MEDS ORDERED: DEXTROSE 50% 50 ML VIAL IV PRN (19:19)
[2022-09-12] MEDS ORDERED: DEXTROSE 31 GM ORAL.SUSP PO PRN (19:19)
[2022-09-12] MEDS: AZITHROMYCIN 500 MG in DEXTROSE 5% IN WATER 250 ML IV SCH (20:12)
[2022-09-12] MEDS: 0.9 % SODIUM CHLORIDE 10 ML SYRINGE IV SCH (20:12)
[2022-09-12 20:48] LABS: ALT/SGPT 17 U/L (<40); AST/SGOT 17 U/L (<32); Albumin 3.7 gm/dL (3.2-5.2); Albumin/Globulin Ratio 1.2 (1.0-2.3); Alkaline Phosphatase 112 U/L (39-117); Bilirubin,Direct < 0.2 mg/dL (0-0.3); Bilirubin,Total < 0.2 mg/dL (0.1-1.0); Blood Urea Nitrogen 21 mg/dL (8-23); Calcium 8.9 mg/dL (8.6-10.4); Carbon Dioxide 30 mmol/L (22-30); Chloride 93 mmol/L (96-108); Globulin 3.1 gm/dL (2.2-3.7); Glomerular Filtration Rate 50; Glucose 337 mg/dL (70-105); Lactate Dehydrogenase 312 U/L (135-225); Phosphorous 3.9 mg/dL (2.5-4.5); Triglycerides 104 mg/dL (<150)
[2022-09-12] MEDS: DOCUSATE SODIUM 100 MG CAPSULE PO SCH (20:56)
[2022-09-12] MEDS ORDERED: INSULIN GLARGINE, HUMAN 1 UNIT/0.01 ML SQ SCH (21:00)
[2022-09-12] MEDS: INSULIN LISPRO 1 UNIT/0.01 ML UNIT SQ SCH (21:05)
[2022-09-12] MEDS: CEFEPIME 2 GM VIAL IV SCH (21:15)
[2022-09-12] MEDS: methylPREDNISolone SOD SUCC 125 MG/2 ML VIAL IV SCH (21:16)
[2022-09-12] MEDS: HEPARIN 5,000 UNIT/ML VIAL SQ SCH (21:33)
[2022-09-13] MEDS: ACETAMINOPHEN 325 MG TABLET PO PRN ×3 (03:43→20:05)
[2022-09-13] MEDS: 0.9 % SODIUM CHLORIDE 10 ML SYRINGE IV SCH ×4 (05:54→21:56)
[2022-09-13] MEDS ORDERED: POLYETHYLENE GLYCOL 3350 17 GM PACKET PO PRN (05:54)
[2022-09-13] MEDS: CEFEPIME 2 GM VIAL IV SCH ×3 (06:05→21:54)
[2022-09-13 07:23] LABS: Mean Cell Volume 98.1 fL (80.0-100.0); Mean Corpuscular HGB Conc 29.7 g/dL (31.0-36.0); Platelet Count 184 K/mcL (140-440); RBC 3.77 M/mcL (3.59-5.38); Red Cell Distribution Width 12.4 % (11.5-14.5); WBC 12.3 K/mcL (4.5-11.0)
[2022-09-13 07:51] LABS: ALT/SGPT 15 U/L (<40); AST/SGOT 14 U/L (<32); Albumin 3.3 gm/dL (3.2-5.2); Albumin/Globulin Ratio 1.1 (1.0-2.3); Alkaline Phosphatase 102 U/L (39-117); Bilirubin,Direct < 0.2 mg/dL (0-0.3); Bilirubin,Total 0.2 mg/dL (0.1-1.0); Blood Urea Nitrogen 22 mg/dL (8-23); Carbon Dioxide 33 mmol/L (22-30); Chloride 94 mmol/L (96-108); Glomerular Filtration Rate 56; Glucose 191 mg/dL (70-105); Lactate Dehydrogenase 290 U/L (135-225); Phosphorous 3.2 mg/dL (2.5-4.5); Triglycerides 81 mg/dL (<150); Uric Acid 3.3 mg/dL (2.5-8.0)
--- NOTE | 2022-09-13 08:12 | EKG ---
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
--- NOTE | 2022-09-13 08:28 | Internal Med Progress Note ---
SUBJECTIVE Subjective Patient information: Note initiated : 09/13/22 at 8:23 am Service Date, if different from initiated Date: [] Patient: Trevor Garcia 72 y/o F admitted on 09/12/22 for Congestion. Chief Complaint: [] Interval history: Ms. 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 The patient is on prednisone 10 mg daily for COPD. The patient presented to the emergency department for worsening shortness of breath. She was evaluated earlier in the day by [facility] and found to be saturating in the low 90s, her oxygen supplementation was increased to 5 L/min and she was sent to the emergency department. In the emergency department, the patient was found to have respiratory acidosis with a pH of 7.24 and a PCO2 of 111.2. Patient was placed on BiPAP and 3 L/min nasal oxygen supplementation. Her PCO2 improved to 83.6 and her respiratory acidosis resolved. The patient tested positive for influenza A by Cece rapid antigen test. She tested negative for influenza B and SARS-CoV-2 by rapid antigen test. CBC was notable for a WBC of 15.3 and increased absolute neutrophils. [id number] complete metabolic panel was notable for a bicarbonate level of 44, creatinine of 1.2, glucose of 277. NT proBNP was normal, procalcitonin and D-dimer were normal. A chest x-ray was reported as showing no acute abnormality by radiology. 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 Hospital medicine was consulted for admission. Patient is agreeable for hospital admission. She says that she has recently not been using her trilogy ventilator as recommended. She says that she is not supposed to take any kind of nebulizer inhaler treatme nt. She is agreeable to hospital admission, states that her CODE STATUS is DNR/DNI. 09/13 Patient was stable overnight on BiPAP, lactic acid improved with IV fluid. Leukocytosis improving. MRSA nasal PCR negative, continue cefepime and azithromycin. Glucose elevated secondary to IV Solu-Medrol. Resumed home medications including Trelegy Ellipta. The patient feels that she is improving. Sputum culture pending. Physical exam Head: Atraumatic, normal inspection. Eyes: normal appearance, no scleral icterus. Neck: full ROM Respiratory: On BiPAP with 4 L/min nasal oxygen supplementation, does not appear to be in respiratory distress. Cardiovascular: normal rate and rhythm, S1, S2. GI/Abdominal: Obesely distended, soft, nontender, no guarding. Extremities: full range of motion, nontender. Neurological: CN II-XII intact, intact motor, intact sensation. Psychiatric: normal mood. Skin: Thin fragile skin due to steroids Constitutional Vitals: Vital Signs Temp Pulse Resp BP Pulse Ox O2 Del Method O2 Flow Rate 98.1 F 73 20 137/60 97 4 09/13/22 07:00 09/13/22 07:35 09/13/22 07:35 09/13/22 05:00 09/13/22 07:35 09/13/22 05:00 09/13/22 03:00 Period Temp Pulse Resp BP Sys/Bailey Pulse Ox O2 Del Method O2 Flow Rate Last 24 Hr 98.1 F-98.6 F 67-97 14-26 126-195/58-144 91-100 BiPAP-Nasal Cannula 3-30 Intake and Output 09/12/22 09/13/22 09/13/22 21:59 05:59 13:59 Intake Total 1000 550 Output Total 600 200 Balance 1000 -50 -200 Weight 79.061 kg Intake & Output: Intake & Output 09/12/22 09/13/22 09/13/22 21:59 05:59 13:59 Intake Total 1000 550 Output Total 600 200 Balance 1000 -50 -200 Weight 79.061 kg Intake: IV 1000 250 Sodium Chloride 0.9% 1,000 ml @ 1000 Wide Open IV [facility] Rx#: [id number] Zithromax 500 mg In Dextrose 5% 250 in Water 250 ml @ 250 mls/hr IV Q24H [facility] Rx#:[id number] Oral 300 Output: Urine Catheter Amount 400 Void Amount 200 200 Other: Urine Appearance Clear Clear Clear Urine Color Yellow Yellow Yellow Urine Odor Normal # Voids 1 OBJ DATA Labs CBC & Chem 7: 09/13/22 05:47 09/13/22 05:45 Labs: Abnormal Lab Results 09/13/22 09/13/22 09/12/22 05:47 05:45 19:38 WBC 12.3 H Hgb 11.0 L MCV MCHC 29.7 L Neut % (Auto) Lymph % (Auto) Lymph # (Auto) Immature Gran # Absolute Neutrophils POC VBG pH POC VBG pCO2 at Temp POC VBG pO2 POC VBG HCO3 POC VBG Total CO2 POC Venous O2 Sat POC VBG Base Excess VBG Lactic Acid 3.6 H POC Chloride Chloride 94 L Carbon Dioxide 33 H POC Total CO2 POC BUN Glucose 191 H POC Glucose Lactate Dehydrogenase 290 H 09/12/22 09/12/22 09/12/22 19:38 16:09 14:40 WBC 15.3 H Hgb MCV 100.7 H MCHC 29.0 L Neut % (Auto) 90.7 H Lymph % (Auto) 3.6 L Lymph # (Auto) 0.55 L Immature Gran # 0.08 H Absolute Neutrophils 13.89 H POC VBG pH POC VBG pCO2 at Temp 83.6 H* POC VBG pO2 POC VBG HCO3 45.3 H* POC VBG Total CO2 48.0 H* POC Venous O2 Sat POC VBG Base Excess 20.0 H* VBG Lactic Acid 2.4 H POC Chloride Chloride 93 L Carbon Dioxide POC Total CO2 POC BUN Glucose 337 H POC Glucose Lactate Dehydrogenase 312 H 09/12/22 09/12/22 14:27 14:27 WBC Hgb MCV MCHC Neut % (Auto) Lymph % (Auto) Lymph # (Auto) Immature Gran # Absolute Neutrophils POC VBG pH 7.24 L POC VBG pCO2 at Temp 111.2 H* POC VBG pO2 24 L POC VBG HCO3 47.2 H* POC VBG Total CO2 > 50.0 H* POC Venous O2 Sat 28.0 L POC VBG Base Excess 20.0 H* VBG Lactic Acid POC Chloride 91 L Chloride Carbon Dioxide POC Total CO2 44.0 H* POC BUN 29 H Glucose POC Glucose 277 H Lactate Dehydrogenase Meds: Medications Acetaminophen (Acetaminophen 325 Mg Tablet) 650 mg PO Q6HP PRN; Protocol PRN Reason: Per Pain Protocol/Fever > 101 Last Admin: 09/13/22 03:43 Dose: 650 mg Albuterol Sulfate (Albuterol Sulfate 200 Puff Inhaler) 2 puff INH Q2HP PRN PRN Reason: Shortness Of Breath Amlodipine Besylate (Amlodipine 5 Mg Tablet) 2.5 mg PO QDAY [facility] Cefepime HCl (Cefepime 2 Gm Vial) 2 gm IV Q8H [facility]; Protocol Last Admin: 09/13/22 06:05 Dose: 2 gm Cyanocobalamin (Cyanocobalamin (Vitamin B-12) 500 Mcg Tablet) 1,000 mcg PO QDAY [facility] Dextrose (Dextrose 50% 50 Ml Vial) 0 ml IV UD PRN PRN Reason: Per Sliding Scale Diagnostic Test (Pha) (Accu-Chek 1 Each Strip) 1 each FS ACHS [facility] Last Admin: 09/12/22 21:04 Dose: 1 each Docusate Sodium (Docusate Sodium 100 Mg Capsule) 100 mg PO BID [facility] Last Admin: 09/12/22 20:56 Dose: Not Given Glucose (Dextrose 31 Gm Oral.Susp) 15 gm PO PRN PRN PRN Reason: Hypoglycemia Heparin Sodium (Porcine) (Heparin 5,000 Unit/Ml Vial) 5,000 unit SQ Q12 [facility] Last Admin: 09/12/22 21:33 Dose: 5,000 unit Azithromycin 500 mg/ Dextrose 250 mls @ 250 mls/hr IV Q24H [facility]; Protocol Stop: 09/14/22 21:59 Last Infusion: 09/13/22 03:37 Dose: Infused Insulin Glargine (Insulin Glargine, Human 1 Unit/0.01 Ml) 27 unit SQ [facility] Insulin Human Lispro (Insulin Lispro 1 Unit/0.01 Ml Unit) 0 unit SQ [facility]; Protocol Last Admin: 09/12/22 21:05 Dose: 18 units Lactulose (Lactulose 20 Gm/30 Ml Oral.Darcie) 10 gm PO DAILYP PRN PRN Reason: Constipation Loratadine (Loratadine 10 Mg Tablet) 10 mg PO QDAY [facility] Methylprednisolone Sodium Succinate (Methylprednisolone Sod Succ 125 Mg/2 Ml Vial) 62.5 mg IV Q12 [facility] Last Admin: 09/12/22 21:16 Dose: 62.5 mg Ondansetron HCl (Ondansetron 4 Mg/2 Ml Vial) 4 mg IV Q4HP PRN; Protocol PRN Reason: Nausea And Vomiting Oseltamivir Phosphate (Oseltamivir Phosphate 75 Mg Capsule) 75 mg PO BID [facility] Stop: 09/17/22 09:01 Paroxetine HCl (Paroxetine 20 Mg Tablet) 40 mg PO DAILY [facility] Trelegy Ellipta (Inhaler) 2 dose INH Q24H [facility] Polyethylene Glycol (Polyethylene Glycol 3350 17 Gm Packet) 17 gm PO DAILYP PRN PRN Reason: Constipation Senna (Sennosides 1 Tablet) 2 tab PO HSP PRN PRN Reason: Constipation Sodium Chloride (0.9 % Sodium Chloride 10 Ml Syringe) 10 ml IV Q8 [facility] Last Admin: 09/13/22 06:05 Dose: 10 ml Trazodone HCl (Trazodone Hcl 50 Mg Tablet) 50 mg PO HS [facility] Vitamin D (Vitamin D3 25 Mcg Tablet) 50 mcg PO QDAY [facility] A/P Narrative A/P Narrative: Assessment: 72-year-old female with a history of 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 -Empiric cefepime and azithromycin. -Sputum culture and Gram stain if able to collect. -BiPAP with oxygen supplementation, goal sats 88 to 92%. -The patient declines all nebulizer inhaler therapy. -Albuterol inhaler every 2 hours as needed. -Trelegy Ellipta, not formulary but family will bring to the hospital. -Lantus 27 units at bedtime and correction Humalog SSIhigh dose. -Home medication reconciliation. -Consistent carbohydrate diet. -DVT prophylaxis: Heparin SQ -CODE STATUS: DNR/DNI -Skin: Home when stable. Time Spent With Patient Time: Total time spent is greater than 50% in coordination of care (as documented) at patient's floor/unit and/or counseling patient: QUALITY Stroke Symptom Onset Unknown: No VTE Deep Vein Thrombosis/Pulmonary Embolism Present on Admission: No
[2022-09-13] MEDS: LORATADINE 10 MG TABLET PO SCH (08:44)
[2022-09-13] MEDS: PARoxetine 20 MG TABLET PO SCH (08:44)
[2022-09-13] MEDS: OSELTAMIVIR PHOSPHATE 75 MG CAPSULE PO SCH ×2 (08:44→20:20)
[2022-09-13] MEDS: CYANOCOBALAMIN (VITAMIN B-12) 500 MCG TABLET PO SCH (08:44)
[2022-09-13] MEDS: amLODIPine 5 MG TABLET PO SCH (08:44)
[2022-09-13] MEDS: VITAMIN D3 25 MCG TABLET PO SCH (08:44)
[2022-09-13] MEDS: INSULIN LISPRO 1 UNIT/0.01 ML UNIT SQ SCH ×4 (08:44→20:02)
[2022-09-13] MEDS: methylPREDNISolone SOD SUCC 125 MG/2 ML VIAL IV SCH ×2 (08:45→20:01)
[2022-09-13] MEDS: HEPARIN 5,000 UNIT/ML VIAL SQ SCH ×2 (08:45→20:00)
[2022-09-13] MEDS ORDERED: CYANOCOBALAMIN (VITAMIN B-12) 1,000 MCG TABLET PO SCH (09:00)
[2022-09-13 09:03] LABS: Band Neutrophils % 12 % (0-10); Hypochromasia 2+ (None Seen); Platelet Estimate NORMAL (Normal); RBC Morphology ABNORMAL (Normal); Segmented Neutrophils % 88 % (38-78)
[2022-09-13] MEDS: DOCUSATE SODIUM 100 MG CAPSULE PO SCH ×2 (10:05→20:04)
[2022-09-13] MEDS: AZITHROMYCIN 500 MG in DEXTROSE 5% IN WATER 250 ML IV SCH (11:41)
--- NOTE | 2022-09-13 12:56 | Internal Med Progress Note ---
SUBJECTIVE Subjective Patient information: Note initiated : 09/13/22 at 12:50 pm Service Date, if different from initiated Date: [] Patient: Trevor Garcia 72 y/o F admitted on 09/12/22 for Congestion. Chief Complaint: [] Interval history: Ms. 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 The patient is on prednisone 10 mg daily for COPD. The patient presented to the emergency department for worsening shortness of breath. She was evaluated earlier in the day by [facility] and found to be saturating in the low 90s, her oxygen supplementation was increased to 5 L/min and she was sent to the emergency department. In the e mergency department, the patient was found to have respiratory acidosis with a pH of 7.24 and a PCO2 of 111.2. Patient was placed on BiPAP and 3 L/min nasal oxygen supplementation. Her PCO2 improved to 83.6 and her respiratory acidosis resolved. The patient tested positive for influenza A by Cece rapid antigen test. She tested negative for influenza B and SARS-CoV-2 by rapid antigen test. CBC was notable for a WBC of 15.3 and increased absolute neutrophils. [id number] complete metabolic panel was notable for a bicarbonate level of 44, creatinine of 1.2, glucose of 277. NT proBNP was normal, procalcitonin and D-dimer were normal. A chest x-ray was reported as showing no acute abnormality by radiology. 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 Hospital medicine was consulted for admission. Patient is agreeable for hospital admission. She says that she has recently not been using her trilogy ventilator as recommended. She says that she is not supposed to take any kind of nebulizer inhaler treatm ent. She is agreeable to hospital admission, states that her CODE STATUS is DNR/DNI. 09/13 Patient was stable overnight on BiPAP, lactic acid improved with IV fluid. Leukocytosis improving. MRSA nasal PCR negative, continue cefepime and azithromycin. Glucose elevated secondary to IV Solu-Medrol. Resumed home medications including Trelegy Ellipta. The patient feels that she is improving. Sputum culture pending. 09/14 Patient says she is feeling better cough is loosening up. Shortness of breath is improving. She is on 3 L which sounds like her baseline now oxygen. Review of Systems: denies headache/fever/chills/nausea/vomiting/chest or abdominal pain/diarrhea. Otherwise see above. Constitutional Vitals: Vital Signs Temp Pulse Resp BP Pulse Ox O2 Del Method O2 Flow Rate 98.1 F 80 22 137/60 98 4 09/13/22 07:00 09/13/22 10:14 09/13/22 10:14 09/13/22 05:00 09/13/22 10:14 09/13/22 05:00 09/13/22 03:00 Period Temp Pulse Resp BP Sys/Bailey Pulse Ox O2 Del Method O2 Flow Rate Last 24 Hr 98.1 F-98.6 F 67-97 14-26 126-195/58-144 91-100 BiPAP-Nasal Cannula 3-30 Intake and Output 09/13/22 09/13/22 09/13/22 03:59 11:59 19:59 Intake Total 550 Output Total 600 200 Balance -50 -200 Weight 79.061 kg Intake & Output: Intake & Output 09/13/22 09/13/22 09/13/22 03:59 11:59 19:59 Intake Total 550 Output Total 600 200 Balance -50 -200 Weight 79.061 kg Intake: IV 250 Zithromax 500 mg In Dextrose 5% 250 in Water 250 ml @ 250 mls/hr IV Q24H [facility] Rx#:[id number] Oral 300 Output: Urine Catheter Amount 400 Void Amount 200 200 Other: Urine Appearance Clear Clear Urine Color Yellow Yellow # Voids 1 Exam: General: Alert, Awake, No acute Distress, obesity Eyes/N/T: EOMI, Head/Neck: neck supple, CV: RRR, No murmurs, Pulm: diminished BS b/l, mod rhonchi b/l Abd: soft, nontender, +BS x4 Ext: no clubbing/cyanosis, mile b/l LE edema Neuro: Alert, no focal deficits, moves all extremities, Skin: warm/dry OBJ DATA Labs CBC & Chem 7: 09/14/22 06:11 09/14/22 06:11 Labs: Abnormal Lab Results 11/09/2409/13/22 09/12/22 05:47 05:45 19:38 WBC 12.3 H Hgb 11.0 L MCV MCHC 29.7 L Neut % (Auto) Lymph % (Auto) Lymph # (Auto) Seg Neutrophils % 88 H Band Neutrophils % 12 H Immature Gran # Absolute Neutrophils RBC Morphology Abnormal A Hypochromasia 2+ A POC VBG pH POC VBG pCO2 at Temp POC VBG pO2 POC VBG HCO3 POC VBG Total CO2 POC Venous O2 Sat POC VBG Base Excess VBG Lactic Acid 3.6 H POC Chloride Chloride 94 L Carbon Dioxide 33 H POC Total CO2 POC BUN Glucose 191 H POC Glucose Lactate Dehydrogenase 290 H 09/12/22 09/12/22 09/12/22 19:38 16:09 14:40 WBC 15.3 H Hgb MCV 100.7 H MCHC 29.0 L Neut % (Auto) 90.7 H Lymph % (Auto) 3.6 L Lymph # (Auto) 0.55 L Seg Neutrophils % Band Neutrophils % Immature Gran # 0.08 H Absolute Neutrophils 13.89 H RBC Morphology Hypochromasia POC VBG pH POC VBG pCO2 at Temp 83.6 H* POC VBG pO2 POC VBG HCO3 45.3 H* POC VBG Total CO2 48.0 H* POC Venous O2 Sat POC VBG Base Excess 20.0 H* VBG Lactic Acid 2.4 H POC Chloride Chloride 93 L Carbon Dioxide POC Total CO2 POC BUN Glucose 337 H POC Glucose Lactate Dehydrogenase 312 H 09/12/22 09/12/22 14:27 14:27 WBC Hgb MCV MCHC Neut % (Auto) Lymph % (Auto) Lymph # (Auto) Seg Neutrophils % Band Neutrophils % Immature Gran # Absolute Neutrophils RBC Morphology Hypochromasia POC VBG pH 7.24 L POC VBG pCO2 at Temp 111.2 H* POC VBG pO2 24 L POC VBG HCO3 47.2 H* POC VBG Total CO2 > 50.0 H* POC Venous O2 Sat 28.0 L POC VBG Base Excess 20.0 H* VBG Lactic Acid POC Chloride 91 L Chloride Carbon Dioxide POC Total CO2 44.0 H* POC BUN 29 H Glucose POC Glucose 277 H Lactate Dehydrogenase Meds: Medications Acetaminophen (Acetaminophen 325 Mg Tablet) 650 mg PO Q6HP PRN; Protocol PRN Reason: Per Pain Protocol/Fever > 101 Last Admin: 11/11/22 11:58 Dose: 650 mg Albuterol Sulfate (Albuterol Sulfate 200 Puff Inhaler) 2 puff INH Q2HP PRN PRN Reason: Shortness Of Breath Amlodipine Besylate (Amlodipine 5 Mg Tablet) 2.5 mg PO QDAY [facility] Last Admin: 09/13/22 08:44 Dose: 2.5 mg Cefepime HCl (Cefepime 2 Gm Vial) 2 gm IV Q8H [facility]; Protocol Last Admin: 09/13/22 12:03 Dose: 2 gm Cyanocobalamin (Cyanocobalamin (Vitamin B-12) 500 Mcg Tablet) 1,000 mcg PO QDAY [facility] Last Admin: 09/13/22 08:44 Dose: 1,000 mcg Dextrose (Dextrose 50% 50 Ml Vial) 0 ml IV UD PRN PRN Reason: Per Sliding Scale Diagnostic Test (Pha) (Accu-Chek 1 Each Strip) 1 each FS ACHS [facility] Last Admin: 09/13/22 11:42 Dose: 1 each Docusate Sodium (Docusate Sodium 100 Mg Capsule) 100 mg PO BID [facility] Last Admin: 09/13/22 10:05 Dose: 100 mg Glucose (Dextrose 31 Gm Oral.Susp) 15 gm PO PRN PRN PRN Reason: Hypoglycemia Guaifenesin (Guaifenesin 600 Mg Tab.Sr.12h) 600 mg PO DAILY [facility] Heparin Sodium (Porcine) (Heparin 5,000 Unit/Ml Vial) 5,000 unit SQ Q12 [facility] Last Admin: 09/13/22 08:45 Dose: 5,000 unit Azithromycin 500 mg/ Dextrose 250 mls @ 250 mls/hr IV Q24H [facility]; Protocol Stop: 09/14/22 21:59 Last Admin: 09/13/22 11:41 Dose: 250 mls/hr Insulin Glargine (Insulin Glargine, Human 1 Unit/0.01 Ml) 27 unit SQ HS [facility] Insulin Human Lispro (Insulin Lispro 1 Unit/0.01 Ml Unit) 0 unit SQ [facility]; Protocol Last Admin: 09/13/22 11:57 Dose: 6 units Lactulose (Lactulose 20 Gm/30 Ml Oral.Darcie) 10 gm PO DAILYP PRN PRN Reason: Constipation Loratadine (Loratadine 10 Mg Tablet) 10 mg PO QDAY [facility] Last Admin: 09/13/22 08:44 Dose: 10 mg Methylprednisolone Sodium Succinate (Methylprednisolone Sod Succ 125 Mg/2 Ml Vial) 62.5 mg IV Q12 [facility] Last Admin: 09/13/22 08:45 Dose: 62.5 mg Ondansetron HCl (Ondansetron 4 Mg/2 Ml Vial) 4 mg IV Q4HP PRN; Protocol PRN Reason: Nausea And Vomiting Oseltamivir Phosphate (Oseltamivir Phosphate 75 Mg Capsule) 75 mg PO BID [facility] Stop: 09/17/22 09:01 Last Admin: 09/13/22 08:44 Dose: 75 mg Paroxetine HCl (Paroxetine 20 Mg Tablet) 40 mg PO DAILY [facility] Last Admin: 09/13/22 08:44 Dose: 40 mg Trelegy Ellipta (Inhaler) 2 dose INH Q24H [facility] Polyethylene Glycol (Polyethylene Glycol 3350 17 Gm Packet) 17 gm PO DAILYP PRN PRN Reason: Constipation Senna (Sennosides 1 Tablet) 2 tab PO HSP PRN PRN Reason: Constipation Sodium Chloride (0.9 % Sodium Chloride 10 Ml Syringe) 10 ml IV Q8 [facility] Last Admin: 09/13/22 06:05 Dose: 10 ml Trazodone HCl (Trazodone Hcl 50 Mg Tablet) 50 mg PO HS [facility] Vitamin D (Vitamin D3 25 Mcg Tablet) 50 mcg PO QDAY [facility] Last Admin: 09/13/22 08:44 Dose: 50 mcg A/P Narrative A/P Narrative: A: #Acute on chronic Hypercapnic respiratory failure: 2/2 copd #COPD exacerbation (End-stage COPD)/Bronchiectasis: #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 -Empiric cefepime/azithromycin, Sputum culture and Gram stain if able to collect -BiPAP with oxygen supplementation, goal sats 88 to 92% -solumedrol (wean) -The patient declines all nebulizer inhaler therapy, Albuterol inhaler every 2 hours as needed. -Trelegy Ellipta, not formulary but family will bring to the hospital. -Lantus 27 qhs, SSI. -prophylaxis: Heparin SQ CODE STATUS: DNR/DNI Time Spent With Patient Time: Total time spent is greater than 50% in coordination of care (as documented) at patient's floor/unit and/or counseling patient: Total time spent with greater than 50% in coordination of care (as documented) at patient's floor/unit and/or counseling patient:: 25 - 35 minutes QUALITY Stroke Symptom Onset Unknown: No VTE Deep Vein Thrombosis/Pulmonary Embolism Present on Admission: No
[2022-09-13] MEDS: guaiFENesin 600 MG TAB.SR.12H PO SCH (14:50)
[2022-09-13] MEDS ORDERED: traZODone HCL 50 MG TABLET PO SCH (21:00)
[2022-09-13] MEDS ORDERED: INSULIN GLARGINE, HUMAN 1 UNIT/0.01 ML SQ SCH (21:00)
[2022-09-14] MEDS: CEFEPIME 2 GM VIAL IV SCH ×2 (04:33→13:49)
[2022-09-14] MEDS: 0.9 % SODIUM CHLORIDE 10 ML SYRINGE IV SCH ×2 (04:34→13:50)
[2022-09-14 07:26] LABS: Hematocrit 38.3 % (34.1-44.9); Hemoglobin 11.4 g/dL (11.2-15.7); Mean Cell Volume 98.2 fL (80.0-100.0); Mean Corpuscular HGB Conc 29.8 g/dL (31.0-36.0); Mean Platelet Volume 12.3 fL (8.8-12.5); Platelet Count 179 K/mcL (140-440); Red Cell Distribution Width 12.5 % (11.5-14.5); WBC 13.8 K/mcL (4.5-11.0)
[2022-09-14 07:27] LABS: ALT/SGPT 18 U/L (<40); AST/SGOT 20 U/L (<32); Albumin 3.5 gm/dL (3.2-5.2); Albumin/Globulin Ratio 1.1 (1.0-2.3); Alkaline Phosphatase 91 U/L (39-117); Bilirubin,Direct < 0.2 mg/dL (0-0.3); Bilirubin,Total 0.2 mg/dL (0.1-1.0); Blood Urea Nitrogen 33 mg/dL (8-23); Calcium 9.2 mg/dL (8.6-10.4); Carbon Dioxide 38 mmol/L (22-30); Chloride 96 mmol/L (96-108); Globulin 3.2 gm/dL (2.2-3.7); Glomerular Filtration Rate 50; Glucose 140 mg/dL (70-105); Lactate Dehydrogenase 294 U/L (135-225); Phosphorous 3.2 mg/dL (2.5-4.5); Triglycerides 114 mg/dL (<150); Uric Acid 3.9 mg/dL (2.5-8.0)
[2022-09-14] MEDS: INSULIN LISPRO 1 UNIT/0.01 ML UNIT SQ SCH ×2 (07:59→12:22)
[2022-09-14 08:11] LABS: Lymphocytes % 4 % (15-49); Monocytes % (Manual) 2 % (1-12); Platelet Estimate NORMAL (Normal); RBC Morphology NORMAL (Normal); Segmented Neutrophils % 94 % (38-78)
[2022-09-14] MEDS ORDERED: INSULIN GLARGINE, HUMAN 1 UNIT/0.01 ML SQ SCH (09:00)
--- NOTE | 2022-09-14 09:36 | Internal Med Progress Note ---
SUBJECTIVE Subjective Patient information: Note initiated : 09/14/22 at 9:36 am Service Date, if different from initiated Date: [] Patient: Trevor Garcia 72 y/o F admitted on 09/12/22 for Congestion. Chief Complaint: [] Interval history: Ms. 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 The patient is on prednisone 10 mg daily for COPD. The patient presented to the emergency department for worsening shortness of breath. She was evaluated earlier in the day by [facility] and found to be saturating in the low 90s, her oxygen supplementation was increased to 5 L/min and she was sent to the emergency department. In the emergency department, the patient was found to have respiratory acidosis with a pH of 7.24 and a PCO2 of 111.2. Patient was placed on BiPAP and 3 L/min nasal oxygen supplementation. Her PCO2 improved to 83.6 and her respiratory acidosis resolved. The patient tested positive for influenza A by Cece rapid antigen test. She tested negative for influenza B and SARS-CoV-2 by rapid antigen test. CBC was notable for a WBC of 15.3 and increased absolute neutrophils. [id number] complete metabolic panel was notable for a bicarbonate level of 44, creatinine of 1.2, glucose of 277. NT proBNP was normal, procalcitonin and D-dimer were normal. A chest x-ray was reported as showing no acute abnormality by radiology. 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 Hospital medicine was consulted for admission. Patient is agreeable for hospital admission. She says that she has recently not been using her trilogy ventilator as recommended. She says that she is not supposed to take any kind of nebulizer inhaler treatme nt. She is agreeable to hospital admission, states that her CODE STATUS is DNR/DNI. 09/13 Patient was stable overnight on BiPAP, lactic acid improved with IV fluid. Leukocytosis improving. MRSA nasal PCR negative, continue cefepime and azithromycin. Glucose elevated secondary to IV Solu-Medrol. Resumed home medications including Trelegy Ellipta. The patient feels that she is improving. Sputum culture pending. 09/14 Patient says she is feeling better cough is loosening up. Shortness of breath is improving. She is on 3 L which sounds like her baseline now oxygen. Review of Systems: denies headache/fever/chills/nausea/vomiting/chest or abdominal pain/diarrhea. Otherwise see above. Constitutional Vitals: Vital Signs Temp Pulse Resp BP Pulse Ox O2 Del Method O2 Flow Rate 97.9 F 77 18 136/97 98 3 09/14/22 08:01 09/14/22 08:01 09/14/22 08:01 09/14/22 08:01 09/14/22 08:01 09/14/22 05:00 09/14/22 05:00 Period Temp Pulse Resp BP Sys/Bailey Pulse Ox O2 Del Method O2 Flow Rate Last 24 Hr 97.2 F-98.1 F 61-150 15-23 92-182/45-116 30-100 BiPAP-Nasal Cannula 2-3 Intake and Output 09/13/22 09/14/22 09/14/22 19:59 03:59 11:59 Intake Total 450 150 Output Total 400 1000 501 Balance 50 -850 -501 Weight 79.061 kg 78.018 kg Intake & Output: Intake & Output 09/13/22 09/14/22 09/14/22 19:59 03:59 11:59 Intake Total 450 150 Output Total 400 1000 501 Balance 50 -850 -501 Weight 79.061 kg 78.018 kg Intake: IV 250 Zithromax 500 mg In Dextrose 5% 250 in Water 250 ml @ 250 mls/hr IV Q24H [facility] Rx#:[id number] Oral 200 150 Output: Void Amount 400 1000 500 # of times incontinent of urine 1 Other: Urine Appearance Clear Clear Clear Urine Color Yellow Yellow Yellow Urine Odor Normal # Voids 1 2 Exam: General: Alert, Awake, No acute Distress, obesity Eyes/N/T: EOMI, Head/Neck: neck supple, CV: RRR, No murmurs, Pulm: diminished BS b/l, mod rhonchi b/l Abd: soft, nontender, +BS x4 Ext: no clubbing/cyanosis, mile b/l LE edema Neuro: Alert, no focal deficits, moves all extremities, Skin: warm/dry OBJ DATA Labs CBC & Chem 7: 09/14/22 06:11 09/14/22 06:11 Labs: Abnormal Lab Results 09/14/22 09/14/22 09/13/22 06:11 06:11 05:47 WBC 13.8 H 12.3 H Hgb 11.0 L MCV MCHC 29.8 L 29.7 L Neut % (Auto) Lymph % (Auto) Lymph # (Auto) Seg Neutrophils % 94 H 88 H Band Neutrophils % 12 H Lymphocytes % 4 L Immature Gran # Absolute Neutrophils RBC Morphology Abnormal A Hypochromasia 2+ A POC VBG pH POC VBG pCO2 at Temp POC VBG pO2 POC VBG HCO3 POC VBG Total CO2 POC Venous O2 Sat POC VBG Base Excess VBG Lactic Acid POC Chloride Chloride Carbon Dioxide 38 H POC Total CO2 Anion Gap 4.0 L POC BUN BUN 33 H Glucose 140 H POC Glucose Lactate Dehydrogenase 294 H 09/13/22 09/12/22 09/12/22 05:45 19:38 19:38 WBC Hgb MCV MCHC Neut % (Auto) Lymph % (Auto) Lymph # (Auto) Seg Neutrophils % Band Neutrophils % Lymphocytes % Immature Gran # Absolute Neutrophils RBC Morphology Hypochromasia POC VBG pH POC VBG pCO2 at Temp POC VBG pO2 POC VBG HCO3 POC VBG Total CO2 POC Venous O2 Sat POC VBG Base Excess VBG Lactic Acid 3.6 H POC Chloride Chloride 94 L 93 L Carbon Dioxide 33 H POC Total CO2 Anion Gap POC BUN BUN Glucose 191 H 337 H POC Glucose Lactate Dehydrogenase 290 H 312 H 09/12/22 09/12/22 09/12/22 16:09 14:40 14:27 WBC 15.3 H Hgb MCV 100.7 H MCHC 29.0 L Neut % (Auto) 90.7 H Lymph % (Auto) 3.6 L Lymph # (Auto) 0.55 L Seg Neutrophils % Band Neutrophils % Lymphocytes % Immature Gran # 0.08 H Absolute Neutrophils 13.89 H RBC Morphology Hypochromasia POC VBG pH 7.24 L POC VBG pCO2 at Temp 83.6 H* 111.2 H* POC VBG pO2 24 L POC VBG HCO3 45.3 H* 47.2 H* POC VBG Total CO2 48.0 H* > 50.0 H* POC Venous O2 Sat 28.0 L POC VBG Base Excess 20.0 H* 20.0 H* VBG Lactic Acid 2.4 H POC Chloride Chloride Carbon Dioxide POC Total CO2 Anion Gap POC BUN BUN Glucose POC Glucose Lactate Dehydrogenase 09/12/22 14:27 WBC Hgb MCV MCHC Neut % (Auto) Lymph % (Auto) Lymph # (Auto) Seg Neutrophils % Band Neutrophils % Lymphocytes % Immature Gran # Absolute Neutrophils RBC Morphology Hypochromasia POC VBG pH POC VBG pCO2 at Temp POC VBG pO2 POC VBG HCO3 POC VBG Total CO2 POC Venous O2 Sat POC VBG Base Excess VBG Lactic Acid POC Chloride 91 L Chloride Carbon Dioxide POC Total CO2 44.0 H* Anion Gap POC BUN 29 H BUN Glucose POC Glucose 277 H Lactate Dehydrogenase Meds: Medications Acetaminophen (Acetaminophen 325 Mg Tablet) 650 mg PO Q6HP PRN; Protocol PRN Reason: Per Pain Protocol/Fever > 101 Last Admin: 09/13/22 20:05 Dose: 650 mg Albuterol Sulfate (Albuterol Sulfate 200 Puff Inhaler) 2 puff INH Q2HP PRN PRN Reason: Shortness Of Breath Amlodipine Besylate (Amlodipine 5 Mg Tablet) 2.5 mg PO QDAY [facility] Last Admin: 09/13/22 08:44 Dose: 2.5 mg Cefepime HCl (Cefepime 2 Gm Vial) 2 gm IV Q8H [facility]; Protocol Last Admin: 09/14/22 04:33 Dose: 2 gm Cyanocobalamin (Cyanocobalamin (Vitamin B-12) 500 Mcg Tablet) 1,000 mcg PO QDAY [facility] Last Admin: 09/13/22 08:44 Dose: 1,000 mcg Dextrose (Dextrose 50% 50 Ml Vial) 0 ml IV UD PRN PRN Reason: Per Sliding Scale Diagnostic Test (Pha) (Accu-Chek 1 Each Strip) 1 each FS ACHS [facility] Last Admin: 09/14/22 07:59 Dose: 1 each Docusate Sodium (Docusate Sodium 100 Mg Capsule) 100 mg PO BID [facility] Last Admin: 09/13/22 20:04 Dose: 100 mg Glucose (Dextrose 31 Gm Oral.Susp) 15 gm PO PRN PRN PRN Reason: Hypoglycemia Guaifenesin (Guaifenesin 600 Mg Tab.Sr.12h) 600 mg PO DAILY [facility] Last Admin: 09/13/22 14:50 Dose: 600 mg Heparin Sodium (Porcine) (Heparin 5,000 Unit/Ml Vial) 5,000 unit SQ Q12 [facility] Last Admin: 09/13/22 20:00 Dose: 5,000 unit Azithromycin 500 mg/ Dextrose 250 mls @ 250 mls/hr IV Q24H [facility]; Protocol Stop: 09/14/22 21:59 Last Infusion: 09/13/22 16:44 Dose: Infused Insulin Glargine (Insulin Glargine, Human 1 Unit/0.01 Ml) 27 unit SQ [facility] Last Admin: 09/13/22 20:02 Dose: 27 units Insulin Human Lispro (Insulin Lispro 1 Unit/0.01 Ml Unit) 0 unit SQ ACHS [facility]; Protocol Last Admin: 09/14/22 07:59 Dose: Not Given Lactulose (Lactulose 20 Gm/30 Ml Oral.Darcie) 10 gm PO DAILYP PRN PRN Reason: Constipation Loratadine (Loratadine 10 Mg Tablet) 10 mg PO QDAY [facility] Last Admin: 09/13/22 08:44 Dose: 10 mg Methylprednisolone Sodium Succinate (Methylprednisolone Sod Succ 125 Mg/2 Ml Vial) 62.5 mg IV Q12 [facility] Last Admin: 09/13/22 20:01 Dose: 62.5 mg Ondansetron HCl (Ondansetron 4 Mg/2 Ml Vial) 4 mg IV Q4HP PRN; Protocol PRN Reason: Nausea And Vomiting Oseltamivir Phosphate (Oseltamivir Phosphate 75 Mg Capsule) 75 mg PO BID [facility] Stop: 09/17/22 09:01 Last Admin: 09/13/22 20:20 Dose: 75 mg Paroxetine HCl (Paroxetine 20 Mg Tablet) 40 mg PO DAILY [facility] Last Admin: 09/13/22 08:44 Dose: 40 mg Trelegy Ellipta (Inhaler) 2 dose INH Q24H [facility] Last Admin: 09/13/22 14:50 Dose: 2 dose Polyethylene Glycol (Polyethylene Glycol 3350 17 Gm Packet) 17 gm PO DAILYP PRN PRN Reason: Constipation Senna (Sennosides 1 Tablet) 2 tab PO HSP PRN PRN Reason: Constipation Last Admin: 09/13/22 20:05 Dose: 2 tab Sodium Chloride (0.9 % Sodium Chloride 10 Ml Syringe) 10 ml IV Q8 [facility] Last Admin: 09/14/22 04:34 Dose: 10 ml Trazodone HCl (Trazodone Hcl 50 Mg Tablet) 50 mg PO [facility] Last Admin: 09/13/22 20:20 Dose: 50 mg Vitamin D (Vitamin D3 25 Mcg Tablet) 50 mcg PO QDAY [facility] Last Admin: 09/13/22 08:44 Dose: 50 mcg A/P Narrative A/P Narrative: A: #Acute on chronic Hypercapnic respiratory failure: 2/2 copd #COPD exacerbation (End-stage COPD)/Bronchiectasis: #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 -Empiric cefepime/azithromycin, Sputum culture and Gram stain if able to collect -BiPAP with oxygen supplementation, goal sats 88 to 92% -solumedrol (wean) -The patient declines all nebulizer inhaler therapy, Albuterol inhaler every 2 hours as needed. -Trelegy Ellipta, not formulary but family will bring to the hospital. -Lantus 27 qhs, SSI. -prophylaxis: Heparin SQ CODE STATUS: DNR/DNI Time Spent With Patient Time: Total time spent is greater than 50% in coordination of care (as documented) at patient's floor/unit and/or counseling patient: Total time spent with greater than 50% in coordination of care (as documented) at patient's floor/unit and/or counseling patient:: 25 - 35 minutes QUALITY Stroke Symptom Onset Unknown: No VTE Deep Vein Thrombosis/Pulmonary Embolism Present on Admission: No
[2022-09-14] MEDS ORDERED: acetaZOLAMIDE SOD 500 MG VIAL IV SCH (10:00)
--- NOTE | 2022-09-14 12:14 | Discharge Summary ---
Discharge Provider Provider IMPORTANT FOLLOW-UP INFORMATION FOR PCP: Patient information: Note initiated : 09/14/22 at 12:12 pm Service Date, if different from initiated Date: [] Patient: Trevor Garcia 72 y/o F admitted on 09/12/22 for Congestion. Chief Complaint: [] Date of admission: 09/12/22 19:15 Discharge date: 09/14/22 Primary care physician: Yola Paul Consults: 09/12/22 Consult to Physician [CONS] Stat Comment: Consulting Provider: Louis Naqvi Reason For Exam: Physician to Consult COURSE Hospital Course Hospital course: Interval history: Ms. 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 The patient is on prednisone 10 mg daily for COPD. The patient presented to the emergency department for worsening shortness of breath. She was evaluated earlier in the day by [facility] and found to be saturating in the low 90s, her oxygen supplementation was increased to 5 L/min and she was sent to the emergency department. In the emergency department, the patient was found to have respiratory acidosis with a pH of 7.24 and a PCO2 of 111.2. Patient was placed on BiPAP and 3 L/min nasal oxygen supplementation. Her PCO2 improved to 83.6 and her respiratory acidosis resolved. The patient tested positive for influenza A by Cece rapid antigen test. She tested negative for influenza B and SARS-CoV-2 by rapid antigen test. CBC was notable for a WBC of 15.3 and increased absolute neutrophils. [id number] complete metabolic panel was notable for a bicarbonate level of 44, creatinine of 1.2, glucose of 277. NT proBNP was normal, procalcitonin and D-dimer were normal. A chest x-ray was reported as showing no acute abnormality by radiology. 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 Hospital medicine was consulted for admission. Patient is agreeable for hospital admission. She says that she has recently not been using her trilogy ventilator as recommended. She says that she is not supposed to take any kind of nebulizer inhaler treatment. She is agreeable to hospital admission, states that her CODE STATUS is DNR/DNI. 09/13 Patient was stable overnight on BiPAP, lactic acid improved with IV fluid. Leukocytosis improving. MRSA nasal PCR negative, continue cefepime and azithromycin. Glucose elevated secondary to IV Solu-Medrol. Resumed home medications including Trelegy Ellipta. The patient feels that she is improving. Sputum culture pending. 09/14 Patient says she is feeling better cough is loosening up. Shortness of breath is improving. She is on 3 L which sounds like her baseline now oxygen. Patient feeling like she is at baseline and desired to go home. 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 -Cipro -steroid taper Discharge diagnosis: Acute on chronic hypercapnic respiratory failure COPD exacerbation bronchie Secondary discharge diagnosis: Is colonization influenza A diabetes chronic kidney disease hypertension obesity Time Spent with Patient Time attestation: Total time spent providing and/or coordinating discharge services: Time spent: Greater than 30 minutes EXAM Constitutional Vitals: Temp Pulse Resp BP Pulse Ox O2 Del Method O2 Flow Rate 97.9 F 77 18 136/97 98 3 09/14/22 08:01 09/14/22 08:01 09/14/22 08:01 09/14/22 08:01 09/14/22 08:01 09/14/22 05:00 09/14/22 05:00 Discharge Data Data Completed and Pending Labs on day of discharge: Labs from last 24 hours 09/14/22 09/14/22 06:11 06:11 WBC 13.8 H RBC 3.90 Hgb 11.4 Hct 38.3 MCV 98.2 MCH 29.2 MCHC 29.8 L RDW 12.5 Plt Count 179 MPV 12.3 Seg Neutrophils % 94 H Lymphocytes % 4 L Monocytes % (Manual) 2 Platelet Estimate Normal RBC Morphology Normal Sodium 138 Potassium 4.9 Chloride 96 Carbon Dioxide 38 H Anion Gap 4.0 L BUN 33 H Creatinine 1.1 GFR Calculation 50 Glucose 140 H Uric Acid 3.9 Calcium 9.2 Phosphorus 3.2 Magnesium 2.3 Total Bilirubin 0.2 Direct Bilirubin < 0.2 GGT 21 AST 20 ALT 18 Alkaline Phosphatase 91 Lactate Dehydrogenase 294 H Total Protein 6.7 Albumin 3.5 Globulin 3.2 Albumin/Globulin Ratio 1.1 Triglycerides 114 Preliminary micro results at discharge 09/12/22 16:01 Blood Culture - Preliminary Blood 09/12/22 15:55 Blood Culture - Preliminary Blood 09/12/22 22:42 Gram Stain - Preliminary Sputum source - Induced Sputum Culture - Preliminary Gram negative bacillus Discharge Plan Patient/Caregiver Discharge Instructions Activity: increase activity as tolerated Diet: Consistent Carbohydrate Prescriptions: New ciprofloxacin HCl [Cipro] 500 mg tablet 500 mg PO BID Qty: 10 0RF prednisone 10 mg tablet 40 mg PO QDAY Qty: 1 0RF Rx Instructions: Take 40mg once daily for 3 days then 20mg daily for 3 days then 10mg daily x3 days then 5mg x2 days and stop Continued clotrimazole 10 mg zuri 10 mg mucous membrane 5XD PRN (Reason: thursh) Qty: 70 0RF amlodipine 2.5 mg tablet 2.5 mg PO QDAY Qty: 90 0RF Toujeo SoloStar U-300 Insulin 300 unit/mL (1.5 mL) insulin pen 27 unit SUB-Q QDAY polyethylene glycol 3350 [Miralax] 17 gram/dose powder 17 g PO QDAY PRN (Reason: Constipation) [id number] 250 mg-400 unit -40 mg-5 mg tablet See Rx Instructions PO .COMPLEX Rx Instructions: D3 1,000 IU; Calcium 250 mg; Magnesium 500 mg PO BID; cyanocobalamin (vitamin B-12) [Vitamin B-12] 1,000 mcg tablet 1,000 mcg PO QDAY acetaminophen 500 mg capsule 500 mg PO PRN PRN (Reason: Pain) (DME) 3lpm with CPAP and home vent Qty: 1 cholecalciferol (vitamin D3) 25 mcg (1,000 unit) capsule 2,000 unit PO QDAY prednisone 20 mg tablet 10 mg PO QDAY Rx Instructions: Start 09-19-2021 loratadine 10 mg capsule 10 mg PO QDAY Qty: 90 3RF alendronate 70 mg tablet 70 mg PO QWEEK Rx Instructions: Once a week on Sundays Respiratory Support & Defense Supplement PO paroxetine HCl 40 MG tablet 40 mg PO DAILY insulin aspart U-100 100 unit/mL (3 mL) insulin pen See Protocol subcut ACHS Qty: 15 0RF Protocol: Insulin Sliding Scale, Med Condition: HUMALOG/NOVALOG SC SLIDING Dose/Route: SCALE Condition: FSBS < 70 Dose/Route: Give 4 Oz juice, or 15gm oral Instruction: Glucose, or 25ml D50W IV if Dose/Route: unable to take PO. Recheck in Instruction: 15 min and repeat if FSBS < 70 Condition: FSBS 71-140 Dose/Route: NO COVERAGE Condition: FSBS 141-170 Dose/Route: 2 UNITS Condition: FSBS 171-200 Dose/Route: 4 UNITS Condition: FSBS 201-250 Dose/Route: 6 UNITS Condition: FSBS 251-300 Dose/Route: 8 UNITS Condition: FSBS 301-350 Dose/Route: 10 UNITS Condition: FSBS 351-400 Dose/Route: 12 UNITS Condition: FSBS > 400 Dose/Route: 14 UNITS; REPEAT Q2H X2 Instruction: CONTINUE FOLLOWING SLIDING Condition: SCALE; IF STILL > 400; CALL Dose/Route: PHYSICIAN Rx Instructions: Sliding scale insulin: FSBS 71-140 no coverage FSBS 141-170 2 units FSBS 171-200 4 units FSBS 201-250 6 units FSBS 251-300 8 units FSBS 301-350 10 units FSBS 351-400 12 units FSBS >400 14 units; repeat testing in 2 hours and treat accordingly Trelegy Ellipta 100-62.5-25 mcg blister with device 2 inh INHALATION Q24H trazodone 50 mg tablet 1 tab PO HS albuterol sulfate [Ventolin HFA] 90 mcg/actuation HFA aerosol inhaler 2 puff INHALATION Label Comments: [NO ORIGINAL SIG] Mucinex 600 mg See Rx Instructions .ROUTE .COMPLEX Rx Instructions: 600 mg orally Follow Up Plan Follow up with: Yola Paul MD [Primary Care Provider] - Patient Disposition: Home, Self-Care Prognosis: Undetermined Overall status at discharge: patient is progressing back to baseline Discharge Orders: Discharge Order (Routine); Ordered 09/14/22 Ordered By: Gen Linares [facility] VTE Deep Vein Thrombosis/Pulmonary Embolism Present on Admission: No
[2022-09-14] MEDS: HEPARIN 5,000 UNIT/ML VIAL SQ SCH (12:22)
[2022-09-14] MEDS: LORATADINE 10 MG TABLET PO SCH (12:23)
[2022-09-14] MEDS: PARoxetine 20 MG TABLET PO SCH (12:24)
[2022-09-14] MEDS: CYANOCOBALAMIN (VITAMIN B-12) 500 MCG TABLET PO SCH (12:24)
[2022-09-14] MEDS: OSELTAMIVIR PHOSPHATE 75 MG CAPSULE PO SCH (12:24)
[2022-09-14] MEDS: amLODIPine 5 MG TABLET PO SCH (12:25)
[2022-09-14] MEDS: AZITHROMYCIN 500 MG in DEXTROSE 5% IN WATER 250 ML IV SCH (12:25)
[2022-09-14] MEDS: guaiFENesin 600 MG TAB.SR.12H PO SCH (12:25)
[2022-09-14] MEDS: VITAMIN D3 25 MCG TABLET PO SCH (12:25)
[2022-09-14] MEDS: DOCUSATE SODIUM 100 MG CAPSULE PO SCH (12:45)
[2022-09-14] MEDS: methylPREDNISolone SOD SUCC 125 MG/2 ML VIAL IV SCH (14:38)
[2022-09-14] MEDS ORDERED: methylPREDNISolone SOD SUCC 40 MG/ML VIAL IV SCH (21:00)
== END 2022-09-14 15:35 | disposition home or self-care (01) | DRG 189 ==
LOC: ED 13:56 → ICU 19:15
PROVIDERS: ADMIT Internal Medicine; ATTEND Internal Medicine

== ENCOUNTER 2023-08-13 14:45 | Inpatient (IN) ==
[2023-08-13 15:31] LABS: POC Calcium, Ionized 1.06 (1.16-1.32); POC Creatinine 1.1 (0.6-1.2); POC Potassium 4.5 (3.3-5.1)
[2023-08-13 16:05] LABS: Basophils # (Auto) 0.01 K/mcL (0.00-0.30); Basophils % (Auto) 0.1 % (0.0-2.0); Eosinophils # (Auto) 0.16 K/mcL (0.00-0.70); Eosinophils % (Auto) 1.6 % (0.0-7.0); Hematocrit 42.2 % (34.1-44.9); Hemoglobin 12.1 g/dL (11.2-15.7); Lymphocytes # (Auto) 0.63 K/mcL (1.50-4.80); Lymphocytes % (Auto) 6.4 % (15.5-49.0); Mean Cell Volume 104.7 fL (80.0-100.0); Mean Corpuscular HGB Conc 28.7 g/dL (31.0-36.0); Mean Platelet Volume 11.8 fL (8.8-12.5); Monocytes # (Auto) 0.75 K/mcL (0.10-0.90); Monocytes % (Auto) 7.6 % (1.0-12.0); Neutrophils % (Auto) 83.2 % (38.0-78.0); Platelet Count 158 K/mcL (140-440); RBC 4.03 M/mcL (3.59-5.38); Red Cell Distribution Width 12.3 % (11.5-14.5); WBC 9.8 K/mcL (4.5-11.0)
[2023-08-13 16:30] LABS: proBNP 249.2 pg/mL (<125.0)
[2023-08-13] MEDS ORDERED: IPRATROPIUM/ALBUTEROL 3 ML AMPUL.NEB NEB ONE (17:33)
[2023-08-13] MEDS ORDERED: methylPREDNISolone SOD SUCC 125 MG/2 ML VIAL IV ONE (17:33)
[2023-08-13] MEDS ORDERED: FUROSEMIDE 20 MG/2 ML VIAL IV ONE (17:34)
[2023-08-13] MEDS ORDERED: DEXTROSE 31 GM ORAL.SUSP PO PRN (21:06)
[2023-08-13] MEDS ORDERED: DEXTROSE 50% 50 ML VIAL IV PRN (21:06)
[2023-08-13] MEDS ORDERED: hydrALAZINE 20 MG/ML VIAL IV PRN (21:06)
[2023-08-13] MEDS ORDERED: ONDANSETRON 4 MG/2 ML VIAL IV PRN (21:06)
[2023-08-13] MEDS ORDERED: guaiFENesin/DEXTROMETHORPHAN 5ML UD CUP PO PRN (21:06)
[2023-08-13 21:52] LABS: ABG Methemoglobin 0.2 % (0.4-1.5); Total Hemoglobin 14.5 gm/Dl (12.0-15.0); VBG Base Excess 15 (-2-3); VBG Oxygen Saturation 88.3 % (40.0-70.0); VBG PH 7.36 U (7.32-7.42); VBG PO2 56.3 mmHg (25.0-40.0); VBG Total CO2 46.5 mmol/L (25.0-29.0)
[2023-08-13] MEDS: IPRATROPIUM/ALBUTEROL 3 ML AMPUL.NEB NEB SCH ×2 (21:55→23:23)
[2023-08-13] MEDS: INSULIN GLARGINE, HUMAN 1 UNIT/0.01 ML SQ SCH (23:17)
[2023-08-13] MEDS: DOCUSATE SODIUM 100 MG CAPSULE PO SCH (23:17)
[2023-08-13] MEDS: INSULIN LISPRO 1 UNIT/0.01 ML UNIT SQ SCH (23:21)
[2023-08-13] MEDS: AZITHROMYCIN 500 MG in DEXTROSE 5% IN WATER 250 ML IV SCH (23:24)
[2023-08-13] MEDS: 0.9 % SODIUM CHLORIDE 10 ML SYRINGE IV SCH (23:25)
[2023-08-14] MEDS: LORazepam 1 MG TABLET PO PRN ×2 (01:22→11:06)
[2023-08-14] MEDS: IPRATROPIUM/ALBUTEROL 3 ML AMPUL.NEB NEB SCH ×6 (03:45→22:16)
[2023-08-14] MEDS: methylPREDNISolone SOD SUCC 125 MG/2 ML VIAL IV SCH ×3 (05:57→22:01)
[2023-08-14] MEDS: 0.9 % SODIUM CHLORIDE 10 ML SYRINGE IV SCH ×3 (05:58→20:31)
[2023-08-14 06:24] LABS: Basophils # (Auto) 0 K/mcL (0.00-0.30); Basophils % (Auto) 0 % (0.0-2.0); Eosinophils # (Auto) 0 K/mcL (0.00-0.70); Eosinophils % (Auto) 0 % (0.0-7.0); Hematocrit 43.1 % (34.1-44.9); Hemoglobin 12.6 g/dL (11.2-15.7); Lymphocytes # (Auto) 0.21 K/mcL (1.50-4.80); Mean Cell Volume 100.7 fL (80.0-100.0); Mean Corpuscular HGB Conc 29.2 g/dL (31.0-36.0); Mean Platelet Volume 11.8 fL (8.8-12.5); Monocytes # (Auto) 0.12 K/mcL (0.10-0.90); Monocytes % (Auto) 2.3 % (1.0-12.0); Neutrophils % (Auto) 93.1 % (38.0-78.0); Platelet Count 185 K/mcL (140-440); RBC 4.28 M/mcL (3.59-5.38); Red Cell Distribution Width 12.3 % (11.5-14.5); WBC 5.3 K/mcL (4.5-11.0)
[2023-08-14 06:28] LABS: ABG Methemoglobin 0 % (0.4-1.5); Total Hemoglobin 14.2 gm/Dl (12.0-15.0); VBG Base Excess 15 (-2-3); VBG Oxygen Saturation 87.1 % (40.0-70.0); VBG PH 7.38 U (7.32-7.42); VBG PO2 60.2 mmHg (25.0-40.0)
[2023-08-14 06:29] LABS: VBG HCO3 43.7 mmol/L (24.0-28.0); VBG PCO2 75.6 mmHg (41.0-51.0)
[2023-08-14 06:51] LABS: ALT/SGPT 23 U/L (<40); AST/SGOT 19 U/L (<32); Albumin 3.5 gm/dL (3.2-5.2); Albumin/Globulin Ratio 0.8 (1.0-2.3); Alkaline Phosphatase 140 U/L (39-117); Bilirubin,Total 0.3 mg/dL (0.1-1.0); Blood Urea Nitrogen 16 mg/dL (8-23); Calcium 9.2 mg/dL (8.6-10.4); Carbon Dioxide 39 mmol/L (22-30); Chloride 91 mmol/L (96-108); Globulin 4.2 gm/dL (2.2-3.7); Glomerular Filtration Rate 49; Glucose 276 mg/dL (70-105)
[2023-08-14] MEDS: PANTOPRAZOLE 40 MG VIAL IV SCH (07:44)
[2023-08-14] MEDS: FUROSEMIDE 20 MG/2 ML VIAL IV SCH ×2 (07:44→16:29)
[2023-08-14] MEDS: INSULIN LISPRO 1 UNIT/0.01 ML UNIT SQ SCH ×4 (07:44→20:30)
[2023-08-14] MEDS: DOCUSATE SODIUM 100 MG CAPSULE PO SCH ×2 (07:45→20:30)
[2023-08-14] MEDS ORDERED: KETOROLAC TROMETHAMINE 1 GTT BOTTLE OU PRN (08:59)
[2023-08-14] MEDS: CIPROFLOXACIN 500 MG TABLET PO SCH ×2 (11:48→20:31)
[2023-08-14] MEDS: LORATADINE 10 MG TABLET PO SCH (11:49)
[2023-08-14] MEDS: amLODIPine 5 MG TABLET PO SCH (11:49)
[2023-08-14] MEDS: guaiFENesin 600 MG TAB.SR.12H PO SCH ×2 (11:50→21:58)
[2023-08-14] MEDS: PARoxetine 20 MG TABLET PO SCH (11:50)
[2023-08-14] MEDS: CYANOCOBALAMIN (VITAMIN B-12) 500 MCG TABLET PO SCH (11:50)
[2023-08-14] MEDS: NYSTATIN 500,000 UNITS/5 ML ORAL.SUSP PO SCH ×4 (11:51→20:31)
[2023-08-14] MEDS: CHLORHEXIDINE GLUCONATE 15 ML UDC SSP SCH ×2 (11:51→20:31)
[2023-08-14] MEDS: VITAMIN D3 25 MCG TABLET PO SCH (11:51)
[2023-08-14] MEDS: LISINOPRIL 5 MG TABLET PO SCH (11:51)
[2023-08-14] MEDS: ENOXAPARIN 40 MG/0.4 ML SYRINGE SQ SCH (11:52)
[2023-08-14] MEDS: CLOTRIMAZOLE 10 MG TROCHE PO SCH ×2 (12:06→20:31)
[2023-08-14] MEDS: Fluticasone-Umeclidin-Vilanter [Trelegy Ellipta] INH SCH ×2 (12:07→13:04)
[2023-08-14] MEDS: AZITHROMYCIN 500 MG in DEXTROSE 5% IN WATER 250 ML IV SCH (13:08)
[2023-08-14] MEDS: INSULIN GLARGINE, HUMAN 1 UNIT/0.01 ML SQ SCH (20:30)
[2023-08-14] MEDS: traZODone HCL 50 MG TABLET PO SCH (20:32)
[2023-08-15] MEDS: IPRATROPIUM/ALBUTEROL 3 ML AMPUL.NEB NEB SCH ×6 (03:15→22:14)
[2023-08-15] MEDS: methylPREDNISolone SOD SUCC 125 MG/2 ML VIAL IV SCH ×3 (06:23→21:50)
[2023-08-15] MEDS: 0.9 % SODIUM CHLORIDE 10 ML SYRINGE IV SCH ×3 (06:23→21:51)
[2023-08-15 07:02] LABS: ABG Methemoglobin 0.1 % (0.4-1.5); Basophils # (Auto) 0 K/mcL (0.00-0.30); Basophils % (Auto) 0 % (0.0-2.0); Eosinophils # (Auto) 0 K/mcL (0.00-0.70); Eosinophils % (Auto) 0 % (0.0-7.0); Hematocrit 38.9 % (34.1-44.9); Hemoglobin 11.7 g/dL (11.2-15.7); Lymphocytes # (Auto) 0.23 K/mcL (1.50-4.80); Mean Cell Volume 99.7 fL (80.0-100.0); Mean Corpuscular HGB Conc 30.1 g/dL (31.0-36.0); Mean Platelet Volume 11.7 fL (8.8-12.5); Monocytes # (Auto) 0.29 K/mcL (0.10-0.90); Monocytes % (Auto) 3.7 % (1.0-12.0); Neutrophils % (Auto) 92.8 % (38.0-78.0); Platelet Count 184 K/mcL (140-440); Red Cell Distribution Width 12.3 % (11.5-14.5); Total Hemoglobin 12.7 gm/Dl (12.0-15.0); VBG Base Excess 16 (-2-3); VBG HCO3 44.6 mmol/L (24.0-28.0); VBG Oxygen Saturation 79.8 % (40.0-70.0); VBG PH 7.38 U (7.32-7.42); VBG PO2 44.5 mmHg (25.0-40.0); WBC 7.8 K/mcL (4.5-11.0)
[2023-08-15] MEDS: DOCUSATE SODIUM 100 MG CAPSULE PO SCH ×2 (08:00→21:46)
[2023-08-15] MEDS: guaiFENesin 600 MG TAB.SR.12H PO SCH ×2 (08:01→21:46)
[2023-08-15] MEDS: PARoxetine 20 MG TABLET PO SCH (08:02)
[2023-08-15] MEDS: CYANOCOBALAMIN (VITAMIN B-12) 500 MCG TABLET PO SCH (08:02)
[2023-08-15] MEDS: amLODIPine 5 MG TABLET PO SCH (08:03)
[2023-08-15] MEDS: CIPROFLOXACIN 500 MG TABLET PO SCH ×2 (08:03→21:46)
[2023-08-15] MEDS: LISINOPRIL 5 MG TABLET PO SCH (08:04)
[2023-08-15] MEDS: PANTOPRAZOLE 40 MG VIAL IV SCH (08:06)
[2023-08-15] MEDS: ENOXAPARIN 40 MG/0.4 ML SYRINGE SQ SCH (08:07)
[2023-08-15] MEDS: FUROSEMIDE 20 MG/2 ML VIAL IV SCH (08:17)
[2023-08-15 08:18] LABS: ALT/SGPT 16 U/L (<40); AST/SGOT 15 U/L (<32); Albumin 3.5 gm/dL (3.2-5.2); Albumin/Globulin Ratio 1.2 (1.0-2.3); Alkaline Phosphatase 104 U/L (39-117); Bilirubin,Total < 0.2 mg/dL (0.1-1.0); Blood Urea Nitrogen 35 mg/dL (8-23); Calcium 8.7 mg/dL (8.6-10.4); Carbon Dioxide 40 mmol/L (22-30); Chloride 93 mmol/L (96-108); Glomerular Filtration Rate 37; Glucose 291 mg/dL (70-105)
[2023-08-15] MEDS: INSULIN LISPRO 1 UNIT/0.01 ML UNIT SQ SCH ×5 (08:30→23:35)
[2023-08-15] MEDS ORDERED: AZITHROMYCIN 250 MG TABLET PO SCH (09:00)
[2023-08-15] MEDS: CLOTRIMAZOLE 10 MG TROCHE PO SCH ×2 (09:25→21:48)
[2023-08-15] MEDS: NYSTATIN 500,000 UNITS/5 ML ORAL.SUSP PO SCH ×4 (09:27→21:48)
[2023-08-15] MEDS: CHLORHEXIDINE GLUCONATE 15 ML UDC SSP SCH ×2 (09:27→21:48)
[2023-08-15] MEDS: LORATADINE 10 MG TABLET PO SCH (09:40)
[2023-08-15] MEDS: VITAMIN D3 25 MCG TABLET PO SCH (09:40)
[2023-08-15] MEDS: Fluticasone-Umeclidin-Vilanter [Trelegy Ellipta] INH SCH (09:41)
[2023-08-15] MEDS: FUROSEMIDE 20 MG TABLET PO SCH (16:02)
[2023-08-15] MEDS: traZODone HCL 50 MG TABLET PO SCH (21:46)
[2023-08-15] MEDS: INSULIN GLARGINE, HUMAN 1 UNIT/0.01 ML SQ SCH (21:47)
[2023-08-15] MEDS: traMADol 50 MG TABLET PO PRN (22:00)
[2023-08-16] MEDS: IPRATROPIUM/ALBUTEROL 3 ML AMPUL.NEB NEB SCH ×6 (02:44→23:09)
[2023-08-16] MEDS: methylPREDNISolone SOD SUCC 125 MG/2 ML VIAL IV SCH (06:23)
[2023-08-16] MEDS: 0.9 % SODIUM CHLORIDE 10 ML SYRINGE IV SCH ×3 (06:23→20:33)
[2023-08-16] MEDS: INSULIN LISPRO 1 UNIT/0.01 ML UNIT SQ SCH ×4 (07:04→20:32)
[2023-08-16] MEDS: FUROSEMIDE 20 MG TABLET PO SCH (07:08)
[2023-08-16] MEDS: PANTOPRAZOLE 40 MG VIAL IV SCH (07:08)
[2023-08-16 07:19] LABS: ABG Methemoglobin 0.4 % (0.4-1.5); Total Hemoglobin 13.1 gm/Dl (12.0-15.0); VBG Base Excess 15 (-2-3); VBG HCO3 42.7 mmol/L (24.0-28.0); VBG Oxygen Saturation 87.3 % (40.0-70.0); VBG PCO2 67.2 mmHg (41.0-51.0); VBG PH 7.42 U (7.32-7.42); VBG PO2 57.9 mmHg (25.0-40.0); VBG Total CO2 44.8 mmol/L (25.0-29.0)
[2023-08-16 07:24] LABS: Basophils # (Auto) 0.01 K/mcL (0.00-0.30); Basophils % (Auto) 0.1 % (0.0-2.0); Eosinophils # (Auto) 0 K/mcL (0.00-0.70); Eosinophils % (Auto) 0 % (0.0-7.0); Hematocrit 40.5 % (34.1-44.9); Hemoglobin 11.8 g/dL (11.2-15.7); Lymphocytes # (Auto) 0.28 K/mcL (1.50-4.80); Lymphocytes % (Auto) 3.2 % (15.5-49.0); Mean Cell Volume 101.3 fL (80.0-100.0); Mean Corpuscular HGB Conc 29.1 g/dL (31.0-36.0); Mean Platelet Volume 12.4 fL (8.8-12.5); Monocytes # (Auto) 0.33 K/mcL (0.10-0.90); Monocytes % (Auto) 3.7 % (1.0-12.0); Neutrophils % (Auto) 92.3 % (38.0-78.0); Platelet Count 188 K/mcL (140-440); Red Cell Distribution Width 12.4 % (11.5-14.5); WBC 8.8 K/mcL (4.5-11.0)
[2023-08-16 07:57] LABS: ALT/SGPT 13 U/L (<40); AST/SGOT 11 U/L (<32); Albumin 3.5 gm/dL (3.2-5.2); Albumin/Globulin Ratio 1.3 (1.0-2.3); Alkaline Phosphatase 92 U/L (39-117); Bilirubin,Total 0.2 mg/dL (0.1-1.0); Blood Urea Nitrogen 48 mg/dL (8-23); Calcium 8.6 mg/dL (8.6-10.4); Carbon Dioxide 40 mmol/L (22-30); Chloride 95 mmol/L (96-108); Globulin 2.8 gm/dL (2.2-3.7); Glomerular Filtration Rate 31; Glucose 251 mg/dL (70-105)
[2023-08-16] MEDS: guaiFENesin 600 MG TAB.SR.12H PO SCH ×2 (08:18→20:32)
[2023-08-16] MEDS: amLODIPine 5 MG TABLET PO SCH (08:18)
[2023-08-16] MEDS: PARoxetine 20 MG TABLET PO SCH (08:18)
[2023-08-16] MEDS: LISINOPRIL 5 MG TABLET PO SCH (08:18)
[2023-08-16] MEDS: DOCUSATE SODIUM 100 MG CAPSULE PO SCH ×2 (08:18→20:32)
[2023-08-16] MEDS: CIPROFLOXACIN 500 MG TABLET PO SCH (08:18)
[2023-08-16] MEDS: CYANOCOBALAMIN (VITAMIN B-12) 500 MCG TABLET PO SCH (08:18)
[2023-08-16] MEDS: CHLORHEXIDINE GLUCONATE 15 ML UDC SSP SCH ×2 (08:19→20:32)
[2023-08-16] MEDS: NYSTATIN 500,000 UNITS/5 ML ORAL.SUSP PO SCH ×4 (08:19→20:32)
[2023-08-16] MEDS: ENOXAPARIN 40 MG/0.4 ML SYRINGE SQ SCH (08:19)
[2023-08-16] MEDS: INSULIN GLARGINE, HUMAN 1 UNIT/0.01 ML SQ SCH ×2 (08:19→20:32)
[2023-08-16] MEDS: CLOTRIMAZOLE 10 MG TROCHE PO SCH ×2 (08:19→20:33)
[2023-08-16] MEDS: Fluticasone-Umeclidin-Vilanter [Trelegy Ellipta] INH SCH (08:29)
[2023-08-16] MEDS: VITAMIN D3 25 MCG TABLET PO SCH (08:29)
[2023-08-16] MEDS: LORATADINE 10 MG TABLET PO SCH (08:37)
[2023-08-16] MEDS: AZITHROMYCIN 250 MG TABLET PO SCH (14:17)
[2023-08-16] MEDS: traMADol 50 MG TABLET PO PRN (14:37)
[2023-08-16] MEDS: traZODone HCL 50 MG TABLET PO SCH (20:32)
[2023-08-16] MEDS: SENNOSIDES 1 TABLET PO PRN (20:32)
[2023-08-17] MEDS: IPRATROPIUM/ALBUTEROL 3 ML AMPUL.NEB NEB SCH ×6 (03:00→23:04)
[2023-08-17] MEDS: 0.9 % SODIUM CHLORIDE 10 ML SYRINGE IV SCH ×3 (05:28→20:34)
[2023-08-17 06:32] LABS: Basophils # (Auto) 0 K/mcL (0.00-0.30); Basophils % (Auto) 0 % (0.0-2.0); Eosinophils # (Auto) 0 K/mcL (0.00-0.70); Eosinophils % (Auto) 0 % (0.0-7.0); Hematocrit 41.3 % (34.1-44.9); Hemoglobin 11.9 g/dL (11.2-15.7); Lymphocytes # (Auto) 0.39 K/mcL (1.50-4.80); Lymphocytes % (Auto) 5.4 % (15.5-49.0); Mean Cell Volume 102.5 fL (80.0-100.0); Mean Corpuscular HGB Conc 28.8 g/dL (31.0-36.0); Mean Platelet Volume 12.4 fL (8.8-12.5); Monocytes # (Auto) 0.69 K/mcL (0.10-0.90); Monocytes % (Auto) 9.6 % (1.0-12.0); Neutrophils % (Auto) 84.6 % (38.0-78.0); Platelet Count 171 K/mcL (140-440); RBC 4.03 M/mcL (3.59-5.38); Red Cell Distribution Width 12.4 % (11.5-14.5); WBC 7.2 K/mcL (4.5-11.0)
[2023-08-17 06:55] LABS: ALT/SGPT 13 U/L (<40); AST/SGOT 10 U/L (<32); Albumin 3.2 gm/dL (3.2-5.2); Albumin/Globulin Ratio 1.2 (1.0-2.3); Alkaline Phosphatase 84 U/L (39-117); Bilirubin,Total < 0.2 mg/dL (0.1-1.0); Blood Urea Nitrogen 44 mg/dL (8-23); Calcium 8.5 mg/dL (8.6-10.4); Carbon Dioxide 42 mmol/L (22-30); Chloride 96 mmol/L (96-108); Globulin 2.7 gm/dL (2.2-3.7); Glomerular Filtration Rate 40; Glucose 94 mg/dL (70-105)
[2023-08-17] MEDS: INSULIN LISPRO 1 UNIT/0.01 ML UNIT SQ SCH ×4 (07:19→20:32)
[2023-08-17] MEDS: CYANOCOBALAMIN (VITAMIN B-12) 500 MCG TABLET PO SCH (07:54)
[2023-08-17] MEDS: guaiFENesin 600 MG TAB.SR.12H PO SCH ×2 (07:54→20:33)
[2023-08-17] MEDS: LORATADINE 10 MG TABLET PO SCH (07:54)
[2023-08-17] MEDS: PARoxetine 20 MG TABLET PO SCH (07:54)
[2023-08-17] MEDS: DOCUSATE SODIUM 100 MG CAPSULE PO SCH ×2 (07:55→20:33)
[2023-08-17] MEDS: amLODIPine 5 MG TABLET PO SCH (07:55)
[2023-08-17] MEDS: PANTOPRAZOLE 40 MG VIAL IV SCH (07:55)
[2023-08-17] MEDS: AZITHROMYCIN 250 MG TABLET PO SCH (07:55)
[2023-08-17] MEDS: ENOXAPARIN 40 MG/0.4 ML SYRINGE SQ SCH (07:56)
[2023-08-17] MEDS: CLOTRIMAZOLE 10 MG TROCHE PO SCH ×2 (07:56→20:34)
[2023-08-17] MEDS: INSULIN GLARGINE, HUMAN 1 UNIT/0.01 ML SQ SCH ×2 (07:56→20:33)
[2023-08-17] MEDS: NYSTATIN 500,000 UNITS/5 ML ORAL.SUSP PO SCH ×4 (08:54→20:33)
[2023-08-17] MEDS: Fluticasone-Umeclidin-Vilanter [Trelegy Ellipta] INH SCH (08:54)
[2023-08-17] MEDS: VITAMIN D3 25 MCG TABLET PO SCH (08:54)
[2023-08-17] MEDS: CHLORHEXIDINE GLUCONATE 15 ML UDC SSP SCH ×2 (08:54→20:33)
[2023-08-17] MEDS ORDERED: FUROSEMIDE 20 MG TABLET PO SCH (09:00)
[2023-08-17] MEDS: traZODone HCL 50 MG TABLET PO SCH (20:33)
[2023-08-17] MEDS: SENNOSIDES 1 TABLET PO PRN (20:33)
[2023-08-18] MEDS: IPRATROPIUM/ALBUTEROL 3 ML AMPUL.NEB NEB SCH ×2 (02:43→06:32)
[2023-08-18] MEDS: 0.9 % SODIUM CHLORIDE 10 ML SYRINGE IV SCH (05:59)
[2023-08-18] MEDS ORDERED: PANTOPRAZOLE 40 MG TABLET PO SCH (07:30)
[2023-08-18] MEDS ORDERED: IPRATROPIUM/ALBUTEROL 3 ML AMPUL.NEB NEB PRN (07:31)
[2023-08-18] MEDS ORDERED: acetaZOLAMIDE SOD 500 MG VIAL IV ONE (08:00)
[2023-08-18 08:41] LABS: ALT/SGPT 14 U/L (<40); AST/SGOT 15 U/L (<32); Albumin 2.9 gm/dL (3.2-5.2); Alkaline Phosphatase 83 U/L (39-117); Bilirubin,Direct < 0.2 mg/dL (0-0.3); Bilirubin,Total < 0.2 mg/dL (0.1-1.0); Blood Urea Nitrogen 43 mg/dL (8-23); Calcium 9.1 mg/dL (8.6-10.4); Carbon Dioxide 41 mmol/L (22-30); Chloride 95 mmol/L (96-108); Globulin 2.8 gm/dL (2.2-3.7); Glomerular Filtration Rate 40; Glucose 47 mg/dL (70-105); Lactate Dehydrogenase 293 U/L (135-225); Phosphorous 4.2 mg/dL (2.5-4.5); Triglycerides 211 mg/dL (<150); Uric Acid 4.9 mg/dL (2.5-8.0)
[2023-08-18] MEDS: PANTOPRAZOLE 40 MG VIAL IV SCH (08:42)
[2023-08-18] MEDS: ENOXAPARIN 40 MG/0.4 ML SYRINGE SQ SCH (08:43)
[2023-08-18] MEDS: NYSTATIN 500,000 UNITS/5 ML ORAL.SUSP PO SCH ×2 (08:43→12:28)
[2023-08-18] MEDS: guaiFENesin 600 MG TAB.SR.12H PO SCH (08:43)
[2023-08-18] MEDS: amLODIPine 5 MG TABLET PO SCH (08:43)
[2023-08-18] MEDS: DOCUSATE SODIUM 100 MG CAPSULE PO SCH (08:43)
[2023-08-18] MEDS: LORATADINE 10 MG TABLET PO SCH (08:47)
[2023-08-18] MEDS: AZITHROMYCIN 250 MG TABLET PO SCH (08:47)
[2023-08-18] MEDS: VITAMIN D3 25 MCG TABLET PO SCH (08:47)
[2023-08-18] MEDS: PARoxetine 20 MG TABLET PO SCH (08:48)
[2023-08-18] MEDS: INSULIN GLARGINE, HUMAN 1 UNIT/0.01 ML SQ SCH (08:48)
[2023-08-18] MEDS: CYANOCOBALAMIN (VITAMIN B-12) 500 MCG TABLET PO SCH (08:48)
[2023-08-18] MEDS: CLOTRIMAZOLE 10 MG TROCHE PO SCH (08:49)
[2023-08-18] MEDS: INSULIN LISPRO 1 UNIT/0.01 ML UNIT SQ SCH ×2 (08:50→11:50)
[2023-08-18] MEDS ORDERED: predniSONE 10 MG TABLET PO SCH (09:05)
[2023-08-18] MEDS: Fluticasone-Umeclidin-Vilanter [Trelegy Ellipta] INH SCH (09:23)
[2023-08-18] MEDS: CHLORHEXIDINE GLUCONATE 15 ML UDC SSP SCH (09:26)
[2023-08-18] MEDS ORDERED: INSULIN GLARGINE, HUMAN 1 UNIT/0.01 ML SQ SCH (21:00)
== END 2023-08-18 13:05 | DRG 189 ==
LOC: ED 14:45 → ICU 20:50
PROVIDERS: ADMIT Internal Medicine; ATTEND Internal Medicine

== ENCOUNTER 2023-09-10 15:42 | Inpatient (IN) ==
[2023-09-10] MEDS ORDERED: ALBUTEROL SULFATE 2.5 MG/3 ML NEBULIZER NEB ONE (16:03)
[2023-09-10] MEDS ORDERED: methylPREDNISolone SOD SUCC 125 MG/2 ML VIAL IV ONE (16:03)
[2023-09-10 17:17] LABS: Basophils # (Auto) 0.01 K/mcL (0.00-0.30); Basophils % (Auto) 0.2 % (0.0-2.0); Eosinophils # (Auto) 0.06 K/mcL (0.00-0.70); Eosinophils % (Auto) 1.2 % (0.0-7.0); Hematocrit 41.8 % (34.1-44.9); Hemoglobin 11.9 g/dL (11.2-15.7); Lymphocytes # (Auto) 0.37 K/mcL (1.50-4.80); Lymphocytes % (Auto) 7.2 % (15.5-49.0); Mean Cell Volume 104.2 fL (80.0-100.0); Mean Corpuscular HGB Conc 28.5 g/dL (31.0-36.0); Monocytes # (Auto) 0.66 K/mcL (0.10-0.90); Monocytes % (Auto) 12.8 % (1.0-12.0); Neutrophils % (Auto) 77.6 % (38.0-78.0); Platelet Count 172 K/mcL (140-440); RBC 4.01 M/mcL (3.59-5.38); Red Cell Distribution Width 12.7 % (11.5-14.5); WBC 5.2 K/mcL (4.5-11.0)
[2023-09-10 17:45] LABS: proBNP 388.1 pg/mL (<125.0)
[2023-09-10 17:54] LABS: ALT/SGPT 11 U/L (<40); AST/SGOT 19 U/L (<32); Albumin 3.6 gm/dL (3.2-5.2); Albumin/Globulin Ratio 1.1 (1.0-2.3); Alkaline Phosphatase 105 U/L (39-117); Bilirubin,Total 0.2 mg/dL (0.1-1.0); Blood Urea Nitrogen 19 mg/dL (8-23); Calcium 9.1 mg/dL (8.6-10.4); Carbon Dioxide 42 mmol/L (22-30); Chloride 94 mmol/L (96-108); Globulin 3.2 gm/dL (2.2-3.7); Glomerular Filtration Rate 44; Glucose 165 mg/dL (70-105)
[2023-09-10] MEDS ORDERED: ACETAMINOPHEN 325 MG TABLET PO ONE (18:57)
[2023-09-10] MEDS ORDERED: DEXTROSE 50% 50 ML VIAL IV PRN (21:43)
[2023-09-10] MEDS ORDERED: DEXTROSE 31 GM ORAL.SUSP PO PRN (21:43)
[2023-09-10] MEDS ORDERED: LACTULOSE 20 GM/30 ML ORAL.SOL PO PRN (21:43)
[2023-09-10] MEDS ORDERED: ONDANSETRON 4 MG/2 ML VIAL IV PRN (21:43)
[2023-09-10] MEDS ORDERED: SENNOSIDES 1 TABLET PO PRN (21:43)
[2023-09-10] MEDS ORDERED: ALBUTEROL SULFATE 2.5 MG/3 ML NEBULIZER NEB PRN (21:43)
[2023-09-10] MEDS ORDERED: LEVOFLOXACIN 750 MG/150 ML BAG IV SCH (22:00)
[2023-09-10] MEDS: INSULIN LISPRO 1 UNIT/0.01 ML UNIT SQ SCH (22:25)
[2023-09-10] MEDS: DOCUSATE SODIUM 100 MG CAPSULE PO SCH (22:31)
[2023-09-10] MEDS: HEPARIN 5,000 UNIT/ML VIAL SQ SCH (22:31)
[2023-09-10] MEDS: 0.9 % SODIUM CHLORIDE 10 ML SYRINGE IV SCH (22:32)
[2023-09-10 22:46] LABS: ABG Methemoglobin 0.2 % (0.4-1.5); Total Hemoglobin 13.2 gm/Dl (12.0-15.0); VBG Base Excess 10 (-2-3); VBG HCO3 37.4 mmol/L (24.0-28.0); VBG Oxygen Saturation 91.8 % (40.0-70.0); VBG PCO2 61.7 mmHg (41.0-51.0); VBG Total CO2 39.3 mmol/L (25.0-29.0)
[2023-09-10] MEDS: IPRATROPIUM/ALBUTEROL 3 ML AMPUL.NEB NEB SCH (23:25)
[2023-09-11] MEDS: IPRATROPIUM/ALBUTEROL 3 ML AMPUL.NEB NEB SCH ×6 (03:03→23:23)
[2023-09-11] MEDS: methylPREDNISolone SOD SUCC 125 MG/2 ML VIAL IV SCH ×2 (05:33)
[2023-09-11] MEDS: 0.9 % SODIUM CHLORIDE 10 ML SYRINGE IV SCH ×3 (05:33→20:27)
[2023-09-11] MEDS ORDERED: REMDESIVIR 200 MG in 0.9 % SODIUM CHLORIDE 250 ML IV ONE (06:32)
[2023-09-11] MEDS ORDERED: MAGNESIUM HYDROXIDE 30 ML ORAL.SUSP PO PRN (06:37)
[2023-09-11] MEDS ORDERED: POLYETHYLENE GLYCOL 3350 17 GM PACKET PO PRN (06:37)
[2023-09-11] MEDS ORDERED: traMADol 50 MG TABLET PO PRN (06:49)
[2023-09-11] MEDS: ACETAMINOPHEN 325 MG TABLET PO PRN ×2 (08:00→20:36)
[2023-09-11] MEDS: CYANOCOBALAMIN (VITAMIN B-12) 500 MCG TABLET PO SCH (08:43)
[2023-09-11] MEDS: INSULIN GLARGINE, HUMAN 1 UNIT/0.01 ML SQ SCH (08:43)
[2023-09-11] MEDS: INSULIN LISPRO 1 UNIT/0.01 ML UNIT SQ SCH ×4 (08:43→20:36)
[2023-09-11] MEDS: amLODIPine 5 MG TABLET PO SCH (08:43)
[2023-09-11] MEDS: guaiFENesin 600 MG TAB.SR.12H PO SCH ×2 (08:44→20:25)
[2023-09-11] MEDS: HEPARIN 5,000 UNIT/ML VIAL SQ SCH (08:44)
[2023-09-11] MEDS: DEXAMETHASONE 10 MG/ML VIAL IV SCH (08:44)
[2023-09-11] MEDS: VITAMIN D3 25 MCG TABLET PO SCH (08:44)
[2023-09-11] MEDS: PARoxetine 20 MG TABLET PO SCH (08:44)
[2023-09-11] MEDS: DOCUSATE SODIUM 100 MG CAPSULE PO SCH ×2 (08:44→20:26)
[2023-09-11] MEDS: ENOXAPARIN 40 MG/0.4 ML SYRINGE SQ SCH (10:10)
[2023-09-11] MEDS: LORATADINE 10 MG TABLET PO SCH (11:29)
[2023-09-11] MEDS: LORazepam 2 MG/ML VIAL IV PRN (14:07)
[2023-09-11] MEDS: traZODone HCL 50 MG TABLET PO PRN (20:38)
[2023-09-12] MEDS: IPRATROPIUM/ALBUTEROL 3 ML AMPUL.NEB NEB SCH ×6 (03:42→23:51)
[2023-09-12] MEDS: 0.9 % SODIUM CHLORIDE 10 ML SYRINGE IV SCH ×3 (06:00→21:17)
[2023-09-12 06:35] LABS: Basophils # (Auto) 0.01 K/mcL (0.00-0.30); Basophils % (Auto) 0.1 % (0.0-2.0); Eosinophils # (Auto) 0 K/mcL (0.00-0.70); Eosinophils % (Auto) 0 % (0.0-7.0); Hematocrit 42.9 % (34.1-44.9); Hemoglobin 12.1 g/dL (11.2-15.7); Lymphocytes # (Auto) 0.65 K/mcL (1.50-4.80); Lymphocytes % (Auto) 8.7 % (15.5-49.0); Mean Cell Volume 103.9 fL (80.0-100.0); Mean Corpuscular HGB Conc 28.2 g/dL (31.0-36.0); Mean Platelet Volume 12.6 fL (8.8-12.5); Monocytes # (Auto) 0.83 K/mcL (0.10-0.90); Monocytes % (Auto) 11.2 % (1.0-12.0); Neutrophils % (Auto) 79.7 % (38.0-78.0); Platelet Count 187 K/mcL (140-440); RBC 4.13 M/mcL (3.59-5.38); Red Cell Distribution Width 12.8 % (11.5-14.5); WBC 7.4 K/mcL (4.5-11.0)
[2023-09-12 07:11] LABS: ALT/SGPT 16 U/L (<40); AST/SGOT 20 U/L (<32); Albumin 3.8 gm/dL (3.2-5.2); Albumin/Globulin Ratio 1.3 (1.0-2.3); Alkaline Phosphatase 95 U/L (39-117); Bilirubin,Direct < 0.2 mg/dL (0-0.3); Bilirubin,Total 0.2 mg/dL (0.1-1.0); Blood Urea Nitrogen 36 mg/dL (8-23); Calcium 9.2 mg/dL (8.6-10.4); Carbon Dioxide 38 mmol/L (22-30); Chloride 95 mmol/L (96-108); Glomerular Filtration Rate 44; Glucose 155 mg/dL (70-105); Lactate Dehydrogenase 331 U/L (135-225); Triglycerides 260 mg/dL (<150); Uric Acid 4.3 mg/dL (2.5-8.0)
[2023-09-12] MEDS: PARoxetine 20 MG TABLET PO SCH (07:42)
[2023-09-12] MEDS: amLODIPine 5 MG TABLET PO SCH (07:42)
[2023-09-12] MEDS: VITAMIN D3 25 MCG TABLET PO SCH (07:42)
[2023-09-12] MEDS: CYANOCOBALAMIN (VITAMIN B-12) 500 MCG TABLET PO SCH (07:42)
[2023-09-12] MEDS: guaiFENesin 600 MG TAB.SR.12H PO SCH ×2 (07:42→21:17)
[2023-09-12] MEDS: DOCUSATE SODIUM 100 MG CAPSULE PO SCH ×2 (07:42→21:17)
[2023-09-12] MEDS: DEXAMETHASONE 10 MG/ML VIAL IV SCH (07:43)
[2023-09-12] MEDS: ENOXAPARIN 40 MG/0.4 ML SYRINGE SQ SCH (07:43)
[2023-09-12] MEDS: LORATADINE 10 MG TABLET PO SCH (07:44)
[2023-09-12] MEDS: INSULIN LISPRO 1 UNIT/0.01 ML UNIT SQ SCH ×5 (08:47→21:24)
[2023-09-12] MEDS: INSULIN GLARGINE, HUMAN 1 UNIT/0.01 ML SQ SCH (08:48)
[2023-09-12] MEDS: REMDESIVIR 100 MG in 0.9 % SODIUM CHLORIDE 250 ML IV SCH (08:48)
[2023-09-12] MEDS: LORazepam 2 MG/ML VIAL IV PRN (11:38)
[2023-09-12] MEDS: methylPREDNISolone SOD SUCC 125 MG/2 ML VIAL IV SCH ×3 (12:31→21:17)
[2023-09-12] MEDS: traZODone HCL 50 MG TABLET PO PRN (21:17)
[2023-09-12] MEDS: ACETAMINOPHEN 325 MG TABLET PO PRN (21:36)
[2023-09-13] MEDS: IPRATROPIUM/ALBUTEROL 3 ML AMPUL.NEB NEB SCH ×6 (02:50→22:59)
[2023-09-13] MEDS: ACETAMINOPHEN 325 MG TABLET PO PRN ×2 (05:11→20:08)
[2023-09-13] MEDS: 0.9 % SODIUM CHLORIDE 10 ML SYRINGE IV SCH ×3 (05:20→20:09)
[2023-09-13] MEDS: methylPREDNISolone SOD SUCC 125 MG/2 ML VIAL IV SCH ×3 (05:20→21:56)
[2023-09-13 06:18] LABS: Basophils # (Auto) 0 K/mcL (0.00-0.30); Basophils % (Auto) 0 % (0.0-2.0); Eosinophils # (Auto) 0 K/mcL (0.00-0.70); Eosinophils % (Auto) 0 % (0.0-7.0); Hematocrit 39.7 % (34.1-44.9); Hemoglobin 11.3 g/dL (11.2-15.7); Lymphocytes # (Auto) 0.22 K/mcL (1.50-4.80); Lymphocytes % (Auto) 3.4 % (15.5-49.0); Mean Cell Volume 103.9 fL (80.0-100.0); Mean Corpuscular HGB Conc 28.5 g/dL (31.0-36.0); Mean Platelet Volume 12.6 fL (8.8-12.5); Monocytes # (Auto) 0.35 K/mcL (0.10-0.90); Monocytes % (Auto) 5.4 % (1.0-12.0); Neutrophils % (Auto) 90.3 % (38.0-78.0); Platelet Count 163 K/mcL (140-440); RBC 3.82 M/mcL (3.59-5.38); Red Cell Distribution Width 12.9 % (11.5-14.5); WBC 6.4 K/mcL (4.5-11.0)
[2023-09-13 06:41] LABS: ALT/SGPT 13 U/L (<40); AST/SGOT 15 U/L (<32); Albumin 3.5 gm/dL (3.2-5.2); Albumin/Globulin Ratio 1.3 (1.0-2.3); Alkaline Phosphatase 84 U/L (39-117); Bilirubin,Direct < 0.2 mg/dL (0-0.3); Bilirubin,Total < 0.2 mg/dL (0.1-1.0); Blood Urea Nitrogen 43 mg/dL (8-23); Calcium 9.6 mg/dL (8.6-10.4); Carbon Dioxide 32 mmol/L (22-30); Chloride 96 mmol/L (96-108); Globulin 2.8 gm/dL (2.2-3.7); Glomerular Filtration Rate 44; Glucose 249 mg/dL (70-105); Lactate Dehydrogenase 310 U/L (135-225); Phosphorous 3.1 mg/dL (2.5-4.5); Triglycerides 123 mg/dL (<150); Uric Acid 3.9 mg/dL (2.5-8.0)
[2023-09-13] MEDS: CYANOCOBALAMIN (VITAMIN B-12) 500 MCG TABLET PO SCH (09:23)
[2023-09-13] MEDS: INSULIN GLARGINE, HUMAN 1 UNIT/0.01 ML SQ SCH (09:23)
[2023-09-13] MEDS: ENOXAPARIN 40 MG/0.4 ML SYRINGE SQ SCH (09:23)
[2023-09-13] MEDS: INSULIN LISPRO 1 UNIT/0.01 ML UNIT SQ SCH ×4 (09:23→20:08)
[2023-09-13] MEDS: PARoxetine 20 MG TABLET PO SCH (09:24)
[2023-09-13] MEDS: LORATADINE 10 MG TABLET PO SCH ×2 (09:24→10:43)
[2023-09-13] MEDS: DOCUSATE SODIUM 100 MG CAPSULE PO SCH ×2 (09:24→20:08)
[2023-09-13] MEDS: amLODIPine 5 MG TABLET PO SCH (09:24)
[2023-09-13] MEDS: guaiFENesin 600 MG TAB.SR.12H PO SCH ×2 (09:24→20:08)
[2023-09-13] MEDS: VITAMIN D3 25 MCG TABLET PO SCH (09:24)
[2023-09-13] MEDS ORDERED: amLODIPine 5 MG TABLET PO ONE (09:36)
[2023-09-13] MEDS ORDERED: INSULIN GLARGINE, HUMAN 1 UNIT/0.01 ML SQ ONE (09:39)
[2023-09-13] MEDS: REMDESIVIR 100 MG in 0.9 % SODIUM CHLORIDE 250 ML IV SCH (10:19)
[2023-09-13] MEDS: traZODone HCL 50 MG TABLET PO PRN (20:08)
[2023-09-14] MEDS: IPRATROPIUM/ALBUTEROL 3 ML AMPUL.NEB NEB SCH ×6 (03:22→23:54)
[2023-09-14] MEDS: 0.9 % SODIUM CHLORIDE 10 ML SYRINGE IV SCH ×3 (05:10→21:29)
[2023-09-14] MEDS: methylPREDNISolone SOD SUCC 125 MG/2 ML VIAL IV SCH ×3 (05:35→21:29)
[2023-09-14 07:04] LABS: Basophils # (Auto) 0 K/mcL (0.00-0.30); Basophils % (Auto) 0 % (0.0-2.0); Eosinophils # (Auto) 0 K/mcL (0.00-0.70); Eosinophils % (Auto) 0 % (0.0-7.0); Hematocrit 39.9 % (34.1-44.9); Hemoglobin 11.5 g/dL (11.2-15.7); Lymphocytes # (Auto) 0.19 K/mcL (1.50-4.80); Lymphocytes % (Auto) 3.4 % (15.5-49.0); Mean Cell Volume 101.3 fL (80.0-100.0); Mean Corpuscular HGB Conc 28.8 g/dL (31.0-36.0); Mean Platelet Volume 12.8 fL (8.8-12.5); Monocytes # (Auto) 0.17 K/mcL (0.10-0.90); Neutrophils % (Auto) 93.1 % (38.0-78.0); Platelet Count 157 K/mcL (140-440); RBC 3.94 M/mcL (3.59-5.38); Red Cell Distribution Width 12.9 % (11.5-14.5); WBC 5.6 K/mcL (4.5-11.0)
[2023-09-14 07:45] LABS: ALT/SGPT 21 U/L (<40); AST/SGOT 17 U/L (<32); Albumin 3.5 gm/dL (3.2-5.2); Albumin/Globulin Ratio 1.3 (1.0-2.3); Alkaline Phosphatase 80 U/L (39-117); Bilirubin,Direct < 0.2 mg/dL (0-0.3); Bilirubin,Total 0.2 mg/dL (0.1-1.0); Blood Urea Nitrogen 43 mg/dL (8-23); Calcium 9.5 mg/dL (8.6-10.4); Carbon Dioxide 37 mmol/L (22-30); Chloride 97 mmol/L (96-108); Globulin 2.8 gm/dL (2.2-3.7); Glomerular Filtration Rate 49; Glucose 251 mg/dL (70-105); Lactate Dehydrogenase 331 U/L (135-225); Phosphorous 3.2 mg/dL (2.5-4.5); Triglycerides 152 mg/dL (<150); Uric Acid 3.8 mg/dL (2.5-8.0)
[2023-09-14] MEDS ORDERED: INSULIN GLARGINE, HUMAN 1 UNIT/0.01 ML SQ SCH ×2 (09:00→09:23)
[2023-09-14] MEDS ORDERED: amLODIPine 5 MG TABLET PO SCH ×2 (09:00→10:01)
[2023-09-14] MEDS: guaiFENesin 600 MG TAB.SR.12H PO SCH ×2 (09:04→21:27)
[2023-09-14] MEDS: LORATADINE 10 MG TABLET PO SCH (09:04)
[2023-09-14] MEDS: PARoxetine 20 MG TABLET PO SCH (09:05)
[2023-09-14] MEDS: ENOXAPARIN 40 MG/0.4 ML SYRINGE SQ SCH (09:05)
[2023-09-14] MEDS: INSULIN LISPRO 1 UNIT/0.01 ML UNIT SQ SCH ×4 (09:05→21:28)
[2023-09-14] MEDS: VITAMIN D3 25 MCG TABLET PO SCH (09:05)
[2023-09-14] MEDS: CYANOCOBALAMIN (VITAMIN B-12) 500 MCG TABLET PO SCH (09:05)
[2023-09-14] MEDS: DOCUSATE SODIUM 100 MG CAPSULE PO SCH ×2 (09:06→21:27)
[2023-09-14] MEDS: REMDESIVIR 100 MG in 0.9 % SODIUM CHLORIDE 250 ML IV SCH (09:07)
[2023-09-14] MEDS ORDERED: hydrALAZINE 20 MG/ML VIAL IV PRN (10:02)
[2023-09-14] MEDS ORDERED: LABETALOL HCL 20 MG/4 ML VIAL IV PRN (10:03)
[2023-09-14] MEDS: LORazepam 2 MG/ML VIAL IV PRN ×2 (11:04→15:00)
[2023-09-14] MEDS: ACETAMINOPHEN 325 MG TABLET PO PRN (21:27)
[2023-09-14] MEDS: traZODone HCL 50 MG TABLET PO PRN (21:27)
[2023-09-14] MEDS: INSULIN GLARGINE, HUMAN 1 UNIT/0.01 ML SQ SCH (21:28)
[2023-09-15] MEDS: IPRATROPIUM/ALBUTEROL 3 ML AMPUL.NEB NEB SCH ×6 (03:25→23:18)
[2023-09-15] MEDS: methylPREDNISolone SOD SUCC 125 MG/2 ML VIAL IV SCH ×3 (05:24→21:07)
[2023-09-15] MEDS: 0.9 % SODIUM CHLORIDE 10 ML SYRINGE IV SCH ×3 (05:25→20:50)
[2023-09-15] MEDS: PANTOPRAZOLE 40 MG TABLET PO SCH (06:59)
[2023-09-15 07:32] LABS: Basophils # (Auto) 0.01 K/mcL (0.00-0.30); Basophils % (Auto) 0.2 % (0.0-2.0); Eosinophils # (Auto) 0 K/mcL (0.00-0.70); Eosinophils % (Auto) 0 % (0.0-7.0); Hematocrit 40.9 % (34.1-44.9); Hemoglobin 11.8 g/dL (11.2-15.7); Lymphocytes # (Auto) 0.24 K/mcL (1.50-4.80); Mean Cell Volume 101.5 fL (80.0-100.0); Mean Corpuscular HGB Conc 28.9 g/dL (31.0-36.0); Mean Platelet Volume 12.9 fL (8.8-12.5); Monocytes # (Auto) 0.23 K/mcL (0.10-0.90); Monocytes % (Auto) 3.8 % (1.0-12.0); Neutrophils % (Auto) 90.4 % (38.0-78.0); Platelet Count 162 K/mcL (140-440); RBC 4.03 M/mcL (3.59-5.38); Red Cell Distribution Width 12.8 % (11.5-14.5); WBC 6.1 K/mcL (4.5-11.0)
[2023-09-15 07:36] LABS: ALT/SGPT 27 U/L (<40); AST/SGOT 16 U/L (<32); Albumin 3.3 gm/dL (3.2-5.2); Albumin/Globulin Ratio 1.2 (1.0-2.3); Alkaline Phosphatase 73 U/L (39-117); Bilirubin,Total 0.2 mg/dL (0.1-1.0); Blood Urea Nitrogen 38 mg/dL (8-23); Calcium 9.3 mg/dL (8.6-10.4); Carbon Dioxide 37 mmol/L (22-30); Chloride 99 mmol/L (96-108); Globulin 2.7 gm/dL (2.2-3.7); Glomerular Filtration Rate 55; Glucose 143 mg/dL (70-105)
[2023-09-15] MEDS: INSULIN LISPRO 1 UNIT/0.01 ML UNIT SQ SCH ×4 (07:44→20:50)
[2023-09-15] MEDS: PARoxetine 20 MG TABLET PO SCH (08:30)
[2023-09-15] MEDS: amLODIPine 5 MG TABLET PO SCH (08:32)
[2023-09-15] MEDS: DOCUSATE SODIUM 100 MG CAPSULE PO SCH ×2 (08:32→20:50)
[2023-09-15] MEDS: VITAMIN D3 25 MCG TABLET PO SCH (08:32)
[2023-09-15] MEDS: guaiFENesin 600 MG TAB.SR.12H PO SCH ×2 (08:32→20:50)
[2023-09-15] MEDS: ENOXAPARIN 40 MG/0.4 ML SYRINGE SQ SCH (08:33)
[2023-09-15] MEDS: INSULIN GLARGINE, HUMAN 1 UNIT/0.01 ML SQ SCH ×2 (08:33→20:49)
[2023-09-15] MEDS: CYANOCOBALAMIN (VITAMIN B-12) 500 MCG TABLET PO SCH (08:50)
[2023-09-15] MEDS: REMDESIVIR 100 MG in 0.9 % SODIUM CHLORIDE 250 ML IV SCH (08:50)
[2023-09-15] MEDS ORDERED: INSULIN GLARGINE, HUMAN 1 UNIT/0.01 ML SQ SCH (09:00)
[2023-09-15] MEDS: LORATADINE 10 MG TABLET PO SCH (09:26)
[2023-09-15] MEDS: ACETAMINOPHEN 325 MG TABLET PO PRN (20:50)
[2023-09-15] MEDS: traZODone HCL 50 MG TABLET PO PRN (20:50)
[2023-09-16] MEDS: IPRATROPIUM/ALBUTEROL 3 ML AMPUL.NEB NEB SCH ×3 (03:02→10:50)
[2023-09-16] MEDS: 0.9 % SODIUM CHLORIDE 10 ML SYRINGE IV SCH (05:17)
[2023-09-16] MEDS: methylPREDNISolone SOD SUCC 125 MG/2 ML VIAL IV SCH (05:17)
[2023-09-16 06:39] LABS: ABG Methemoglobin 0.2 % (0.4-1.5); Basophils # (Auto) 0.01 K/mcL (0.00-0.30); Basophils % (Auto) 0.1 % (0.0-2.0); Eosinophils # (Auto) 0 K/mcL (0.00-0.70); Eosinophils % (Auto) 0 % (0.0-7.0); Hematocrit 37.3 % (34.1-44.9); Hemoglobin 10.9 g/dL (11.2-15.7); Lymphocytes # (Auto) 0.25 K/mcL (1.50-4.80); Lymphocytes % (Auto) 3.5 % (15.5-49.0); Mean Cell Volume 100.8 fL (80.0-100.0); Mean Corpuscular HGB Conc 29.2 g/dL (31.0-36.0); Mean Platelet Volume 12.5 fL (8.8-12.5); Monocytes % (Auto) 4.2 % (1.0-12.0); Neutrophils % (Auto) 91.1 % (38.0-78.0); Platelet Count 167 K/mcL (140-440); Red Cell Distribution Width 12.8 % (11.5-14.5); Total Hemoglobin 12.4 gm/Dl (12.0-15.0); VBG Base Excess 11 (-2-3); VBG HCO3 37.8 mmol/L (24.0-28.0); VBG Oxygen Saturation 92.6 % (40.0-70.0); VBG PCO2 58.6 mmHg (41.0-51.0); VBG PH 7.43 U (7.32-7.42); VBG PO2 111.5 mmHg (25.0-40.0); VBG Total CO2 39.6 mmol/L (25.0-29.0); WBC 7.2 K/mcL (4.5-11.0)
[2023-09-16 07:01] LABS: ALT/SGPT 23 U/L (<40); AST/SGOT 14 U/L (<32); Albumin 3.4 gm/dL (3.2-5.2); Albumin/Globulin Ratio 1.5 (1.0-2.3); Alkaline Phosphatase 67 U/L (39-117); Bilirubin,Total 0.2 mg/dL (0.1-1.0); Blood Urea Nitrogen 36 mg/dL (8-23); Calcium 8.8 mg/dL (8.6-10.4); Carbon Dioxide 37 mmol/L (22-30); Chloride 97 mmol/L (96-108); Globulin 2.3 gm/dL (2.2-3.7); Glomerular Filtration Rate 55; Glucose 150 mg/dL (70-105)
[2023-09-16] MEDS: INSULIN LISPRO 1 UNIT/0.01 ML UNIT SQ SCH ×2 (08:06→11:49)
[2023-09-16] MEDS: amLODIPine 5 MG TABLET PO SCH (08:58)
[2023-09-16] MEDS: PANTOPRAZOLE 40 MG TABLET PO SCH (08:59)
[2023-09-16] MEDS: PARoxetine 20 MG TABLET PO SCH (08:59)
[2023-09-16] MEDS: DOCUSATE SODIUM 100 MG CAPSULE PO SCH (08:59)
[2023-09-16] MEDS: guaiFENesin 600 MG TAB.SR.12H PO SCH (08:59)
[2023-09-16] MEDS: VITAMIN D3 25 MCG TABLET PO SCH (08:59)
[2023-09-16] MEDS: CYANOCOBALAMIN (VITAMIN B-12) 500 MCG TABLET PO SCH (08:59)
[2023-09-16] MEDS: INSULIN GLARGINE, HUMAN 1 UNIT/0.01 ML SQ SCH (09:00)
[2023-09-16] MEDS: ENOXAPARIN 40 MG/0.4 ML SYRINGE SQ SCH (09:00)
[2023-09-16] MEDS: ACETAMINOPHEN 325 MG TABLET PO PRN (09:02)
[2023-09-16] MEDS: LORATADINE 10 MG TABLET PO SCH (10:08)
== END 2023-09-16 13:15 ==
LOC: ED 15:42 → ICU 21:38
PROVIDERS: ADMIT Internal Medicine; ATTEND Internal Medicine

== ENCOUNTER 2023-09-16 20:29 | Inpatient (IN) ==
[2023-09-16 20:50] LABS: POC Calcium, Ionized 1.19 (1.16-1.32); POC Creatinine 1.5 (0.6-1.2); POC Potassium 4.9 (3.3-5.1)
[2023-09-16] MEDS ORDERED: DEXAMETHASONE 10 MG/ML VIAL IV ONE (20:53)
[2023-09-16 22:25] LABS: Basophils # (Auto) 0.04 K/mcL (0.00-0.30); Basophils % (Auto) 0.3 % (0.0-2.0); Eosinophils # (Auto) 0 K/mcL (0.00-0.70); Eosinophils % (Auto) 0 % (0.0-7.0); Hemoglobin 13.1 g/dL (11.2-15.7); Lymphocytes # (Auto) 0.78 K/mcL (1.50-4.80); Lymphocytes % (Auto) 6.1 % (15.5-49.0); Mean Cell Volume 101.4 fL (80.0-100.0); Mean Corpuscular HGB Conc 29.1 g/dL (31.0-36.0); Mean Platelet Volume 13.5 fL (8.8-12.5); Monocytes % (Auto) 12.4 % (1.0-12.0); Neutrophils % (Auto) 77.6 % (38.0-78.0); Platelet Count 272 K/mcL (140-440); RBC 4.44 M/mcL (3.59-5.38); Red Cell Distribution Width 12.9 % (11.5-14.5); WBC 12.9 K/mcL (4.5-11.0)
[2023-09-16 22:30] LABS: INR 0.9 (0.9-1.1); Prothrombin Time 12.5 sec (11.9-14.5)
[2023-09-16 22:36] LABS: proBNP 588.7 pg/mL (<125.0)
[2023-09-16] MEDS ORDERED: ACETAMINOPHEN 325 MG TABLET PO PRN (23:40)
[2023-09-16] MEDS ORDERED: LACTULOSE 20 GM/30 ML ORAL.SOL PO PRN (23:40)
[2023-09-16] MEDS ORDERED: DEXTROSE 31 GM ORAL.SUSP PO PRN (23:40)
[2023-09-16] MEDS ORDERED: SENNOSIDES 1 TABLET PO PRN (23:40)
[2023-09-16] MEDS ORDERED: DEXTROSE 50% 50 ML VIAL IV PRN (23:40)
[2023-09-16] MEDS ORDERED: ONDANSETRON 4 MG/2 ML VIAL IV PRN (23:40)
[2023-09-17] MEDS ORDERED: IPRATROPIUM/ALBUTEROL 3 ML AMPUL.NEB NEB ONE (03:01)
[2023-09-17] MEDS: IPRATROPIUM/ALBUTEROL 3 ML AMPUL.NEB NEB SCH ×6 (03:05→22:15)
[2023-09-17] MEDS ORDERED: DEXTROSE 50% 50 ML SYRINGE IV PRN (06:45)
[2023-09-17 06:55] LABS: Basophils # (Auto) 0.03 K/mcL (0.00-0.30); Basophils % (Auto) 0.3 % (0.0-2.0); Eosinophils # (Auto) 0 K/mcL (0.00-0.70); Eosinophils % (Auto) 0 % (0.0-7.0); Hematocrit 39.9 % (34.1-44.9); Hemoglobin 11.6 g/dL (11.2-15.7); Lymphocytes # (Auto) 0.21 K/mcL (1.50-4.80); Lymphocytes % (Auto) 2.2 % (15.5-49.0); Mean Cell Volume 100.3 fL (80.0-100.0); Mean Corpuscular HGB Conc 29.1 g/dL (31.0-36.0); Mean Platelet Volume 13.2 fL (8.8-12.5); Monocytes # (Auto) 0.36 K/mcL (0.10-0.90); Monocytes % (Auto) 3.7 % (1.0-12.0); Neutrophils % (Auto) 92.2 % (38.0-78.0); Platelet Count 163 K/mcL (140-440); RBC 3.98 M/mcL (3.59-5.38); WBC 9.7 K/mcL (4.5-11.0)
[2023-09-17] MEDS: 0.9 % SODIUM CHLORIDE 10 ML SYRINGE IV SCH ×3 (07:15→21:11)
[2023-09-17 07:22] LABS: ALT/SGPT 23 U/L (<40); AST/SGOT 14 U/L (<32); Albumin 3.1 gm/dL (3.2-5.2); Albumin/Globulin Ratio 1.2 (1.0-2.3); Alkaline Phosphatase 68 U/L (39-117); Bilirubin,Total 0.2 mg/dL (0.1-1.0); Blood Urea Nitrogen 38 mg/dL (8-23); Carbon Dioxide 38 mmol/L (22-30); Chloride 98 mmol/L (96-108); Globulin 2.5 gm/dL (2.2-3.7); Glomerular Filtration Rate 49; Glucose 241 mg/dL (70-105)
[2023-09-17] MEDS: DOCUSATE SODIUM 100 MG CAPSULE PO SCH ×2 (08:11→21:10)
[2023-09-17] MEDS: ENOXAPARIN 40 MG/0.4 ML SYRINGE SQ SCH (08:11)
[2023-09-17] MEDS: INSULIN LISPRO 1 UNIT/0.01 ML UNIT SQ SCH ×4 (08:12→21:19)
[2023-09-17] MEDS: INSULIN GLARGINE, HUMAN 1 UNIT/0.01 ML SQ SCH ×2 (08:14→21:14)
[2023-09-17] MEDS ORDERED: FLEETS ADULT ENEMA PR PRN (08:35)
[2023-09-17] MEDS ORDERED: ALBUTEROL SULFATE 60 PUFF INHALER INH PRN (08:35)
[2023-09-17] MEDS ORDERED: BISACODYL 10 MG SUPP.RECT PR PRN (08:35)
[2023-09-17] MEDS ORDERED: MAGNESIUM HYDROXIDE 30 ML ORAL.SUSP PO PRN (08:35)
[2023-09-17] MEDS ORDERED: POLYETHYLENE GLYCOL 3350 17 GM PACKET PO PRN (08:35)
[2023-09-17] MEDS ORDERED: traMADol 50 MG TABLET PO PRN (08:48)
[2023-09-17] MEDS ORDERED: CHLORHEXIDINE GLUCONATE 15 ML UDC SSP SCH (09:00)
[2023-09-17] MEDS ORDERED: VITAMIN D3 25 MCG TABLET PO SCH (09:00)
[2023-09-17] MEDS: amLODIPine 5 MG TABLET PO SCH (12:52)
[2023-09-17] MEDS: LORATADINE 10 MG TABLET PO SCH (12:53)
[2023-09-17] MEDS: predniSONE 10 MG TABLET PO SCH (12:55)
[2023-09-17] MEDS: CYANOCOBALAMIN (VITAMIN B-12) 500 MCG TABLET PO SCH (12:55)
[2023-09-17] MEDS: PARoxetine 20 MG TABLET PO SCH (12:55)
[2023-09-17] MEDS: guaiFENesin 600 MG TAB.SR.12H PO SCH ×2 (12:56→21:10)
[2023-09-17] MEDS: CHLORHEXIDINE GLUCONATE 15 ML UDC SSP SCH ×2 (12:56→21:10)
[2023-09-17] MEDS: NYSTATIN 500,000 UNITS/5 ML ORAL.SUSP PO SCH ×4 (12:58→21:10)
[2023-09-17] MEDS: LORazepam 2 MG/ML VIAL IV PRN (15:22)
[2023-09-17] MEDS ORDERED: NON FORMULARY MEDICATION 1 DOSE MISCELL (Acetaminophen 500 mg capsule) PO SCH (21:00)
[2023-09-17] MEDS ORDERED: traZODone HCL 50 MG TABLET PO SCH (21:00)
[2023-09-18] MEDS: IPRATROPIUM/ALBUTEROL 3 ML AMPUL.NEB NEB SCH ×2 (02:43→06:49)
[2023-09-18] MEDS: 0.9 % SODIUM CHLORIDE 10 ML SYRINGE IV SCH (05:56)
[2023-09-18] MEDS ORDERED: PANTOPRAZOLE 40 MG TABLET PO SCH (07:30)
[2023-09-18] MEDS: INSULIN LISPRO 1 UNIT/0.01 ML UNIT SQ SCH ×2 (08:09→12:18)
[2023-09-18] MEDS: CHLORHEXIDINE GLUCONATE 15 ML UDC SSP SCH (08:12)
[2023-09-18] MEDS: NYSTATIN 500,000 UNITS/5 ML ORAL.SUSP PO SCH ×2 (08:12→12:13)
[2023-09-18] MEDS: predniSONE 10 MG TABLET PO SCH (08:16)
[2023-09-18] MEDS: ENOXAPARIN 40 MG/0.4 ML SYRINGE SQ SCH (08:16)
[2023-09-18] MEDS: LORATADINE 10 MG TABLET PO SCH (08:16)
[2023-09-18] MEDS: guaiFENesin 600 MG TAB.SR.12H PO SCH (08:17)
[2023-09-18] MEDS: PARoxetine 20 MG TABLET PO SCH (08:18)
[2023-09-18] MEDS: CYANOCOBALAMIN (VITAMIN B-12) 500 MCG TABLET PO SCH (08:18)
[2023-09-18] MEDS: amLODIPine 5 MG TABLET PO SCH (08:19)
[2023-09-18] MEDS: DOCUSATE SODIUM 100 MG CAPSULE PO SCH (08:21)
[2023-09-18] MEDS ORDERED: VITAMIN D3 25 MCG TABLET PO SCH (09:00)
[2023-09-18] MEDS ORDERED: FUROSEMIDE 20 MG TABLET PO SCH (09:00)
[2023-09-18] MEDS: INSULIN GLARGINE, HUMAN 1 UNIT/0.01 ML SQ SCH (10:50)
[2023-09-18] MEDS: LORazepam 2 MG/ML VIAL IV PRN (12:53)
== END 2023-09-18 13:15 | disposition hospice, inpatient (51) | DRG 190 ==
LOC: ED 20:29 → ICU 20:29
PROVIDERS: ADMIT Internal Medicine; ATTEND Internal Medicine